=== PATIENT | female | born 1935 | race Caucasian/White ===

== ENCOUNTER 2016-05-05 05:53 | Inpatient (IN) | payer MEDICARE ==
[~2016-05-05] VITALS: Ht 165.1 cm; Wt 88.2 kg
[~2016-05-05 05:53] MED LIST: ACET500T68 PO; AMLO2.5T PO; AMLO5TAB4 PO; ASPI-482 PO; BRIM5DRO OP; CALC625T PO; DOCU-27 PO; ERGO500012 PO; FURO-68 PO; HYDR-971 PO; LOPE1TAB4 PO; LOSA50TA2 PO; MAGN2400 PO; METO25TA2 PO; NAPR500T PO; NIAC1000 PO; NITR0.4T SL; NITR50CA11 PO; OMEG10006 PO; PANT40TA3 PO; PITA2TAB2 PO; POTA10TA31 PO; POTA20TA84 PO; TAFL1DRO OP
[2016-05-05] MEDS ORDERED: ASPIRIN 325 MG TABLET ONE (06:17)
--- NOTE | 2016-05-05 06:22 | ED.ADGEN ---
Past History Past Medical History: CAD, Cancer, DVT, GERD, Hypertension, UTI Past Surgical History: Angioplasty, Appendectomy, Coronary Bypass Surgery, Hysterectomy, Pacemaker, Other Alcohol Use: Occasionally Drug Use: None Adult General HPI HPI Patient is a 81 y/o female c/o 2.5 hour h/o "sharp" chest pain that radiates to back of her arms. Denies nausea, vomiting, dyspnea, diaphoresis. States that it feels different than her GERD. Admitted and ruled out with similar symptoms in February. Unremarkable cath and echo within last year. Pacemaker placed in summer 2015. Follows with [facility]. Took ntg this morning with no effect. Took usual 81mg ASA. Rates the pain 03/20. Review of Systems Review of Systems Constitutional: Denies fever or chills [] Eyes: Denies change in visual acuity, redness, or eye pain [] HENT: Denies nasal congestion or sore throat [] Respiratory: Denies cough or shortness of breath [] Cardiovascular: No additional information not addressed in HPI [] GI: Denies abdominal pain, nausea, vomiting, bloody stools or diarrhea [] : Denies dysuria or hematuria [] Musculoskeletal: Denies back pain or joint pain [] Integument: Denies rash or skin lesions [] Neurologic: Denies headache, focal weakness or sensory changes [] Endocrine: Denies polyuria or polydipsia [] Current Medications Current Medications Current Medications Medications (Trade) Dose Ordered Sig/[facility] Start Time Stop Time Status Last Admin Dose Admin Aspirin (Beatriz Aspirin) 325 mg STK-MED ONCE 05/05/16 06:17 05/05/16 06:18 DC Aspirin (Children'S Aspirin) 324 mg 1X ONCE 05/05/16 06:30 05/05/16 06:39 DC 05/05/16 06:20 324 MG Multi-Ingredient Mouthwash/Gargle (Gi Cocktail) 20 ml 1X ONCE 05/05/16 06:30 05/05/16 06:39 DC 05/05/16 06:21 20 ML Nitroglycerin (Nitrostat) 0.4 mg PRN Q5MIN PRN 05/05/16 08:15 05/06/16 08:14 Ondansetron HCl 4 mg 4 mg PRN Q4HRS PRN 05/05/16 08:15 05/06/16 08:14 Sodium Chloride (Iv Sodium Chloride 0.9% 1,000ml) 1,000 ml @ 80 mls/hr [id number] 05/05/16 08:02 05/06/16 08:01 Allergies Allergies Allergies Coded Allergies Type Severity Reaction Last Updated Verified latex Allergy Severe Rash 02/16/16 Yes Xreihsw-Pqi-Lte Reductase Inhibitor Allergy Intermediate muscle pain 04/11/14 No adhesive Allergy Intermediate RASH 04/11/14 No bacitracin Allergy Intermediate rash 04/11/14 No ezetimibe Allergy Intermediate muscle pain 04/11/14 No neomycin Allergy Intermediate rash 04/11/14 No polymyxin B Allergy Intermediate rash 04/11/14 No propoxyphene Allergy Intermediate HALLUCINATIONS 04/11/14 No Physical Exam Physical Exam Constitutional: Well developed, well nourished, no acute distress, non-toxic appearance. [] HENT: Normocephalic, atraumatic, bilateral external ears normal, oropharynx moist, no oral exudates, nose normal. [] Eyes: PERRLA, EOMI, conjunctiva normal, no discharge. [] Neck: Normal range of motion, no tenderness, supple, no stridor. [] Cardiovascular:Heart rate regular rhythm, no murmur [] Lungs & Thorax: Bilateral breath sounds clear to auscultation [] Abdomen: Bowel sounds normal, soft, no tenderness, no masses, no pulsatile masses. [] Skin: Warm, dry, no erythema, no rash. [] Back: No tenderness, no CVA tenderness. [] Extremities: No tenderness, no cyanosis, no clubbing, ROM intact, no edema. [] Neurologic: Alert and oriented X 3, normal motor function, normal sensory function, no focal deficits noted. [] Psychologic: Affect normal, judgement normal, mood normal. [] Current Patient Data Vital Signs Vital Signs Date Time Temp Pulse Resp B/P Pulse Ox O2 Delivery O2 Flow Rate FiO2 05/05/16 08:51 70 15 146/73 96 Room Air 05/05/16 05:55 98.2 Lab Results Laboratory Tests Test 05/05/16 06:15 05/05/16 06:22 05/05/16 06:45 White Blood Count 6.8x10^3/uL (4.0-11.0) Red Blood Count 4.03x10^6/uL (3.50-5.40) Hemoglobin 13.8g/dL (12.0-15.5) Hematocrit 41.1% (36.0-47.0) Mean Corpuscular Volume 102fL (79-100) H Mean Corpuscular Hemoglobin 34pg (25-35) Mean Corpuscular Hemoglobin Concent 34g/dL (31-37) Red Cell Distribution Width 14.3% (11.5-14.5) Platelet Count 193x10^3/uL (140-400) Neutrophils (%) (Auto) 53% (31-73) Lymphocytes (%) (Auto) 20% (24-48) L Monocytes (%) (Auto) 13% (0-9) H Eosinophils (%) (Auto) 13% (0-3) H Basophils (%) (Auto) 1% (0-3) Neutrophils # (Auto) 3.6x10^3uL (1.8-7.7) Lymphocytes # (Auto) 1.4x10^3/uL (1.0-4.8) Monocytes # (Auto) 0.9x10^3/uL (0.0-1.1) Eosinophils # (Auto) 0.9x10^3/uL (0.0-0.7) H Basophils # (Auto) 0.1x10^3/uL (0.0-0.2) POC Troponin I 0.03ng/ml (<0.08) Prothrombin Time 9.9SEC (9.4-11.4) Prothrombin Time INR 1.0 (0.9-1.1) PTT 23SEC (23-33) Sodium Level 140mmol/L (136-145) Potassium Level 4.0mmol/L (3.5-5.1) Chloride Level 105mmol/L (98-107) Carbon Dioxide Level 23mmol/L (21-32) Anion Gap 12 (6-14) Blood Urea Nitrogen 40mg/dL (7-20) H Creatinine 1.3mg/dL (0.6-1.0) H Estimated GFR (Cockcroft-Gault) 39.3 Glucose Level 95mg/dL (70-99) Calcium Level 9.3mg/dL (8.5-10.1) Magnesium Level 1.9mg/dL (1.8-2.4) Aspartate Amino Transferase (AST) 32U/L (15-37) Alanine Aminotransferase (ALT) 39U/L (14-59) Alkaline Phosphatase 93U/L (46-116) Creatine Kinase 398U/L (26-192) H Creatine Kinase MB (Mass) 10.7ng/mL (0.0-3.6) H Creatine Kinase MB Relative Index 2.7% (0-4) Troponin I Quantitative < 0.017ng/mL (0-0.055) NH-Fpg-V-Type Natriuretic Peptide 483pg/mL (0-449) H Lipase 184U/L (73-393) EKG EKG EKG interpreted by me, NSR, 89 beats per minutes, RBBB, no ST elevation Radiology/Procedures Radiology/Procedures Chest x-ray interpreted by me, no acute cardiopulmonary process. [] Course & Med Decision Making Course & Med Decision Making Pertinent Labs and Imaging studies reviewed. (See chart for details) 0615 - Initial POC Chem 8 shows elevated K, suspect hemolysis so will repeat BMP and Troponin. Adding CKMB. Given 325 of ASA. GI Cocktail made no difference. Patient says pain "comes and goes" 0750 - Repeat labs are wnl. Only exception was elevated CKMB. Review of records shows that she has consistently had elevated CKMB. Spoke with patient who would prefer to stay at [facility] as long as possible. Dr. Corbett agrees. I have placed orders for repeat troponins and Cardiology consult. [] Final Impression Final Impression unstable angina CAD HTN[] Problems: Dragon Disclaimer Dragon Disclaimer This electronic medical record was generated, in whole or in part, using a voice recognition dictation system. RANDELL HAWKINS MD May 05, 2016 06:22
[2016-05-05] MEDS ORDERED: LIDO:MAALOX 1:1 20 ML SINGLE DOSE PO ONE (06:30)
[2016-05-05] MEDS ORDERED: ASPIRIN 81 MG TAB.CHEW PO ONE (06:30)
[2016-05-05 06:40] LABS: BASO # 0.1 x10^3/uL (0.0-0.2); BASO % 1 % (0-3); EOS # 0.9 x10^3/uL (0.0-0.7); EOS % 13 % (0-3); HEMATOCRIT 41.1 % (36.0-47.0); HEMOGLOBIN 13.8 g/dL (12.0-15.5); LYMPH # 1.4 x10^3/uL (1.0-4.8); LYMPH % 20 % (24-48); MEAN CORPUSCULAR HEMOGLOBIN 34 pg (25-35); MEAN CORPUSCULAR HGB CONC 34 g/dL (31-37); MEAN CORPUSCULAR VOLUME 102 fL (79-100); MONO # 0.9 x10^3/uL (0.0-1.1); MONO % 13 % (0-9); NEUT # 3.6 x10^3uL (1.8-7.7); NEUT % 53 % (31-73); PLATELET COUNT 193 x10^3/uL (140-400); RED BLOOD COUNT 4.03 x10^6/uL (3.50-5.40); RED CELL DISTRIBUTION WIDTH 14.3 % (11.5-14.5); WHITE BLOOD COUNT 6.8 x10^3/uL (4.0-11.0)
--- NOTE | 2016-05-05 06:44 | EKG ---
[address] [address] Test Date: 2016-05-05 Test Time: 06:03:30 Pat Name: TREASURE CONTI Department: Room: Gender: F Head Usher: : 1935 Requested By: RANDELL HAWKINS Order Number: [id number] Reading MD: Measurements Intervals [place] Rate: 89 P: MD: QRS: 90 QRSD: 124 T: 12 QT: 362 QTc: 441 Interpretive Statements ACCELERATED JUNCTIONAL RHYTHM RIGHT BUNDLE BRANCH BLOCK RVH WITH REPOLARIZATION ABNORMALITY QRS(T) CONTOUR ABNORMALITY CONSIDER ANTEROSEPTAL MYOCARDIAL DAMAGE ABNORMAL ECG RI6.01 Unconfirmed report No previous ECG available for comparison
--- NOTE | 2016-05-05 07:09 | RAD ---
Portable chest, 05/05/2016: History: Chest pain, shortness of breath Comparison is made to a study from 02/16/2016. There has been a previous median sternotomy. A left-sided transvenous pacemaker remains in place with 2 leads extending into the heart. The heart size and pulmonary vascularity are normal. There are granulomatous calcifications in left chest. No acute infiltrate is seen. There is no evidence of pleural fluid. IMPRESSION: No acute cardiopulmonary abnormality is detected.
[2016-05-05 07:39] LABS: MAGNESIUM 1.9 mg/dL (1.8-2.4)
[2016-05-05 07:44] LABS: CALCIUM 9.3 mg/dL (8.5-10.1); CREATININE 1.3 mg/dL (0.6-1.0); GFR 39.3
[2016-05-05] MEDS ORDERED: IV NORMAL SALINE 1,000ML 1,000 ML IV SCH (08:02)
[2016-05-05] MEDS ORDERED: NITROGLYCERIN SUBLINGUAL 0.4 MG BOTTLE OF 25. SL PRN ×2 (08:15→11:45)
[2016-05-05] MEDS ORDERED: ONDANSETRON PF 4 MG/2 ML VIAL. IV PRN (08:15)
--- NOTE | 2016-05-05 10:39 | PDOC2 ---
KURTGUMARO aErnest AQUATIC ECOLOGIST 05/05/16 1039: CONSULT Date of Admission DATE: 05/05/16 TIME: 10:38 Reason for Consult: chest pain Problem List Problems Medical Problems: (1) Unstable angina Status: Acute History of Present Illness Ms Aguero is an 81 year old female with a history of Coronary artery disease , bypass surgery, permanent pacemaker placement, hypertension and hyperlipidemia. She was seen in February with similar symptoms and mild elevation of troponin. She normally follows with [facility]. She presents with complaints of chest tightness which she woke with. She describes tightness, radiation down the back of both arms and up the back of her neck to her head. She reports the discomfort was worse with exertion. She took NTG at home without relief then took aspirin and presented for evaluation. She is currently pain free. She denies any change in her current functional capacity. She denies palpitations, lightheadedness or syncope. She reports her pacemaker was interrogated last month and "ok". Past Medical History echo 03/2016 There is borderline concentric left ventricular hypertrophy. The left ventricular systolic function is normal and the ejection fraction is within normal range. The Ejection Fraction is 55-60%. There is mild pulmonary hypertension. The PA pressure was estimated at 38 mmHg. Significant for coronary artery disease status post PTCA in 2009, coronary artery bypass graft surgery in 2016, hypertension, hyperlipidemia, congestive heart failure, osteoarthritis. Past Surgical History Significant for PTCA and stent, coronary artery bypass graft surgery, permanent pacemaker placement, right total knee arthroplasty, bilateral cataract extraction, tonsillectomy, appendectomy, total abdominal hysterectomy, bilateral salpingo-oophorectomy and back surgery. Family History Has one older brother who is alive and has coronary artery bypass graft surgery and pacemaker placement. Her father at the age of 69 because of lung cancer. The mother secondary to myocardial infarction. Social History She is and lives with her who has normal pressure hydrocephalus. She has a daughter and a son. She is an ex-smoker quit 50 years ago. She drinks alcohol occasionally. 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 Current Medications Current Medications Aspirin (Children'S Aspirin) 324 mg 1X ONCE PO Last administered on 05/05/16t 06:20; Start 05/05/16 at 06:30; Stop 05/05/16 at 06:39; Status DC Multi-Ingredient Mouthwash/Gargle (Gi Cocktail) 20 ml 1X ONCE PO Last administered on 05/05/16t 06:21; Start 05/05/16 at 06:30; Stop 05/05/16 at 06:39 ; Status DC Aspirin (Beatriz Aspirin) 325 mg STK-MED ONCE .ROUTE ; Start 05/05/16 at 06:17; Stop 05/05/16 at 06:18; Status DC Ondansetron HCl 4 mg 4 mg PRN Q4HRS PRN IV NAUSEA/VOMITING; Start 05/05/16 at 08:15; Stop 05/06/16 at 08:14 Sodium Chloride (Iv Sodium Chloride 0.9% 1,000ml) 1,000 ml @ 80 mls/hr [id number] IV ; Start 05/05/16 at 08:02; Stop 05/06/16 at 08:01 Nitroglycerin (Nitrostat) 0.4 mg PRN Q5MIN PRN SL CHEST PAIN; Start 05/05/16 at 08:15; Stop 05/06/16 at 08:14 Active Scripts Active Reported Imodium Multi-Symptom Rel Cplt (Loperamide Hcl/Simethicone) 1 Each Tablet 1 Each PO Q4HRS PRN not given this admit may resume as needed [place] 5-325 Tablet (Hydrocodone Bit/Acetaminophen) 1 Each Tablet 1 Tab PO Q4HRS PRN RESUME NEEDED Vitamin D2 (Ergocalciferol (Vitamin D2)) 50,000 Unit Capsule 1 Cap PO WEEKLY resume Wednesday Potassium Chloride 10 Meq Tab.er.prt 10 Meq PO BID last dose this morning next dose due tonight Amlodipine Besylate 2.5 Mg Tablet 2.5 Mg PO DAILY last dose this morning next dose due tomorrow morning Zioptan 0.0015% Eye Drops (Tafluprost/Pf) 1 Each Droperette 1 Each OP DAILY not given this admit may resume Protonix (Pantoprazole Sodium) 40 Mg Tablet.dr 40 Mg PO BID last dose this morning next dose due tonight Pv Fish Oil 1,000 Mg Softgel ([place]arson-3 Fatty Acids/Vitamin E) 1,000 Mg Capsule 2, 000 Mg PO DAILY last dose this morning next dose due tomorrow Nitrostat (Nitroglycerin) 0.4 Mg Tab.subl 0.4 Mg SL Q5MIN X3 DOSES PRN not given on unit may resume as needed Niaspan (Niacin) 1,000 Mg Tab.er.24h 1,000 Mg PO DAILY last dose this morning next dose due tomorrow Toprol Xl (Metoprolol Succinate) 25 Mg Tab.er.24h 25 Mg PO DAILY LAST DOSE GIVEN: DATE: TIME: AM NEXT DOSE DUE: DATE: TOMORROW TIME: AM Cozaar (Losartan Potassium) 50 Mg Tablet 50 Mg PO DAILY last dose this morning next dose due tomorrow morning Lasix (Furosemide) 40 Mg Tablet 40 Mg PO DAILY LAST DOSE GIVEN: DATE: TODAY TIME: AM NEXT DOSE DUE: DATE: TOMORROW TIME: AM Alphagan P (Brimonidine Tartrate) 5 Ml Drops 5 Ml OP DAILY RESUME WHEN YOU GET HOME Aspir 81 (Aspirin) 81 Mg Tablet.dr 81 Mg PO DAILY last dose this morning next dose due tomorrow Acetaminophen 500 Mg Tablet 500 Mg PO TID LAST DOSE GIVEN: DATE: TIME: AM NEXT DOSE DUE: DATE: TIME: AFTERNOON IF NEEDED Allergies: Coded Allergies: latex (Verified Allergy, Severe, Rash, 02/16/16) Cclljzh-Djo-Zso Reductase Inhibitor (Unverified Allergy, Intermediate, muscle pain, 04/11/14) adhesive (Unverified Allergy, Intermediate, RASH, 04/11/14) bacitracin (Unverified Allergy, Intermediate, rash, 04/11/14) ezetimibe (Unverified Allergy, Intermediate, muscle pain, 04/11/14) neomycin (Unverified Allergy, Intermediate, rash, 04/11/14) polymyxin B (Unverified Allergy, Intermediate, rash, 04/11/14) propoxyphene (Unverified Allergy, Intermediate, HALLUCINATIONS, 04/11/14) Review of System as per HPI or negative General: Alert, Oriented X3, Cooperative, No acute distress HEENT: Atraumatic, EOMI, Mucous membr. moist/pink Lungs: Clear to auscultation Heart: Regular rate, Normal S1, Normal S2 Abdomen: Normal bowel sounds, Soft, No tenderness Extremities: No cyanosis, Normal pulses Neuro: Normal speech, Strength at 5/5 X4 ext Psych/Mental Status: Mental status NL, Mood NL VITALS Vital Signs Date Time Temp Pulse Resp B/P Pulse Ox O2 Delivery O2 Flow Rate FiO2 05/05/16 08:51 70 15 146/73 96 Room Air 05/05/16 05:55 98.2 Labs Laboratory Tests Test 05/05/16 06:15 05/05/16 06:22 05/05/16 06:45 White Blood Count 6.8x10^3/uL (4.0-11.0) Red Blood Count 4.03x10^6/uL (3.50-5.40) Hemoglobin 13.8g/dL (12.0-15.5) Hematocrit 41.1% (36.0-47.0) Mean Corpuscular Volume 102fL (79-100) Mean Corpuscular Hemoglobin 34pg (25-35) Mean Corpuscular Hemoglobin Concent 34g/dL (31-37) Red Cell Distribution Width 14.3% (11.5-14.5) Platelet Count 193x10^3/uL (140-400) Neutrophils (%) (Auto) 53% (31-73) Lymphocytes (%) (Auto) 20% (24-48) Monocytes (%) (Auto) 13% (0-9) Eosinophils (%) (Auto) 13% (0-3) Basophils (%) (Auto) 1% (0-3) Neutrophils # (Auto) 3.6x10^3uL (1.8-7.7) Lymphocytes # (Auto) 1.4x10^3/uL (1.0-4.8) Monocytes # (Auto) 0.9x10^3/uL (0.0-1.1) Eosinophils # (Auto) 0.9x10^3/uL (0.0-0.7) Basophils # (Auto) 0.1x10^3/uL (0.0-0.2) Bedside Troponin I 0.03ng/ml (<0.08) Prothrombin Time 9.9SEC (9.4-11.4) Prothromb Time International Ratio 1.0 (0.9-1.1) Activated Partial Thromboplast Time 23SEC (23-33) Sodium Level 140mmol/L (136-145) Potassium Level 4.0mmol/L (3.5-5.1) Chloride Level 105mmol/L (98-107) Carbon Dioxide Level 23mmol/L (21-32) Anion Gap 12 (6-14) Blood Urea Nitrogen 40mg/dL (7-20) Creatinine 1.3mg/dL (0.6-1.0) Estimated GFR (Cockcroft-Gault) 39.3 Glucose Level 95mg/dL (70-99) Calcium Level 9.3mg/dL (8.5-10.1) Magnesium Level 1.9mg/dL (1.8-2.4) Aspartate Amino Transf (AST/SGOT) 32U/L (15-37) Alanine Aminotransferase (ALT/SGPT) 39U/L (14-59) Alkaline Phosphatase 93U/L (46-116) Creatine Kinase 398U/L (26-192) Creatine Kinase MB (Mass) 10.7ng/mL (0.0-3.6) Creatine Kinase MB Relative Index 2.7% (0-4) Troponin I Quantitative < 0.017ng/mL (0-0.055) DX-Zfx-L-Type Natriuretic Peptide 483pg/mL (0-449) Lipase 184U/L (73-393) Images EKG pending CXR - IMPRESSION: No acute cardiopulmonary abnormality is detected. Assessment/Plan 1. chest pain with history of recent NSTEMI - initial trop negative. CP free currently. 2. CAD/CABG x 2 status - last cardiac cath May 2012 revealed LM 20%, LAD 95% ISR, DI 70% ISR, LCX normal, RCA small non dominant, PERALTA-LAD 50%, radial T graft to D1 occluded. Stress test 09/24/15 revealed small, mild intensity, predominantly fixed, defect in apical inferolateral region. Fixed defect new compared to MPI in 2013. 3. history of PE/DVT 4. PPM - interrogate 5. hypertension - resume home medications 6. dyslipidemia - check lipids Check echocardiogram, resume home medications to include aspirin, beta blockers and nitrates. Consider Ranexa. Continue serial enzymes. Further plan to follow. Problems: ARIELLE HARRIS MD 05/05/16 1423: CONSULT Allergies: Coded Allergies: latex (Verified Allergy, Severe, Rash, 02/16/16) Jcgqwol-Dfq-Sma Reductase Inhibitor (Unverified Allergy, Intermediate, muscle pain, 04/11/14) adhesive (Unverified Allergy, Intermediate, RASH, 04/11/14) bacitracin (Unverified Allergy, Intermediate, rash, 04/11/14) ezetimibe (Unverified Allergy, Intermediate, muscle pain, 04/11/14) neomycin (Unverified Allergy, Intermediate, rash, 04/11/14) polymyxin B (Unverified Allergy, Intermediate, rash, 04/11/14) propoxyphene (Unverified Allergy, Intermediate, HALLUCINATIONS, 04/11/14) Assessment/Plan Pt. seen and examined. Agree with above GAUGE INSPECTOR note. 81 y.o woman with prior CABG and PCI. Presenting with features of typical and atypical chest pain. Prior admission 3 months ago with positive troponin. She has a stress test with fixed defect recently Normal cardiac exam. Trop neg, EKG unremarkable, BP controlled. On toprol, ASA, losartan and amlodipine. allergic to statins. Discussed with her about various options including, addition of imdur etc or uptitration of amlodipine given her normal EKG and negative troponins. On the other hand, she has had two admissions with CP suggestive of ischemic pain in the last 2 months. I offered her cath through here or . 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 Will plan for transfer [facility]. Thanks for consult. Problems: GUMARO HICKS APRN May 05, 2016 10:39 ARIELLE HARRIS MD May 05, 2016 14:23
[2016-05-05 10:45] VITALS: BP 156/72
[2016-05-05] MEDS ORDERED: HYDROCODONE/APAP 5/325MG TABLET. PO PRN (11:45)
[2016-05-05] MEDS ORDERED: LOPERAMIDE 2 MG CAPSULE PO PRN (13:00)
[2016-05-05] MEDS ORDERED: SIMETHICONE 80 MG TAB.CHEW PO PRN (13:00)
[2016-05-05] MEDS ORDERED: ACETAMINOPHEN 500 MG TABLET PO SCH (14:00)
[2016-05-05 14:50] VITALS: BP 148/65
--- NOTE | 2016-05-05 15:23 | CARD ---
APPROVED REPORT EXAM: Two-dimensional and M-mode echocardiogram with Doppler and color Doppler. Other Information Quality : GoodHR: 88bpm Rhythm : NSR INDICATION Hypertension/HCVD CAD Chest Pain RISK FACTORS Hypertension 2D DIMENSIONS RVDd2.3 (2.9-3.5cm)IVSd1.0 (0.7-1.1cm) Aortic Root(2D)2.8 (2.0-3.7cm)LVDd4.0 (3.9-5.9cm) PWd1.0 (0.7-1.1cm)LVDs2.7 (2.5-4.0cm) FS (%) 31.8 %SV41.7 ml LVEF(%)60.5 (>50%) Aortic Valve AoV Peak Bib.93.3cm/sAoV VTI19.9cm AO Peak GR.3.5mmHgAO Mean GR.2mmHg GILES (VTI)2.99cm2 Mitral Valve MV E Zbbgfnon38.7cm/sMV E Peak Gr.2mmHg MV DECEL [id number] A Eswfujhk51.7cm/s MV E Mean Gr.1mmHgE/A Ratio0.6 MV A [id number] Tricuspid Valve TR P. [id number]/sRAP [id number] TR Peak Gr.21mmHg LEFT VENTRICLE The left ventricle is normal size. There is normal left ventricular wall thickness. The left ventricu lar systolic function is normal. The Ejection Fraction is 60-65%. There is normal LV segmental wall m otion. Transmitral Doppler flow pattern is Grade I-abnormal relaxation pattern. RIGHT VENTRICLE The right ventricle is normal size. There is normal right ventricular wall thickness. The right ventr icular systolic function is normal. ATRIA The left atrium size is normal. The right atrium size is normal. The interatrial septum is intact wit h no evidence for an atrial septal defect or patent foramen ovale as noted on 2-D or Doppler imaging. AORTIC VALVE The aortic valve is normal in structure and function. Doppler and Color Flow revealed no significant aortic regurgitation. There is no significant aortic valvular stenosis. MITRAL VALVE There is no evidence of mitral valve prolapse. There is no mitral valve stenosis. Doppler and Color F low revealed mild mitral regurgitation. TRICUSPID VALVE Doppler and Color Flow revealed mild tricuspid regurgitation. The pulmonary artery systolic pressure is estimated at 24 mmHg. There is no pulmonary hypertension. PULMONIC VALVE Doppler and Color Flow revealed mild pulmonic valvular regurgitation. There is no pulmonic valvular s tenosis. GREAT VESSELS The aortic root is normal in size. The ascending aorta is normal in size. The pulmonary artery is nor mal. The IVC is normal in size and collapses >50% with inspiration. PERICARDIAL EFFUSION There is no evidence of significant pericardial effusion. Critical Notification Critical Value: No <Conclusion> The left ventricular systolic function is normal. The Ejection Fraction is 60-65%. There is normal LV segmental wall motion. Transmitral Doppler flow pattern is Grade I-abnormal relaxation pattern. Mild mitral regurgitation. Mild tricuspid regurgitation. The pulmonary artery systolic pressure is estimated at 24 mmHg. There is no evidence of significant pericardial effusion.
--- NOTE | 2016-05-05 17:36 | SSS ---
ADMIT DATE: 05/05/2016 HISTORY OF PRESENT ILLNESS: This is an 81-year-old female patient who came to the Emergency Room with a complaint of chest tightness which woke her up. She describes tightness radiation down to back of both arms and up to the back of her neck and to her head. She reports the discomfort was worse with exertion. She took nitroglycerin at home without relief and took aspirin, presented for evaluation. By the time she arrived to the Emergency Room, she was pain free. She denied any change in her current functional status. Denied any palpitation, dizziness, lightheadedness or syncope. Her pacemaker was interrogated last month and was okay. She was evaluated in the Emergency Room and was admitted to do 2 more sets of cardiac enzyme and to be evaluated by the Cardiology team. She has in fact 2 sets of cardiac enzymes, which showed troponin to be less than 0.017. She was seen by the Cardiology team and apparently has had an echocardiogram, which showed that her left ventricular systolic function is normal, ejection fraction is 60% to 65%. She has normal left ventricular segmental wall motion. Transmitral Doppler flow pattern has grade 1 abnormal relaxation pattern. She has mild mitral regurgitation, mild tricuspid regurgitation. The pulmonary artery systolic pressure is estimated at 24 mm. There is no evidence of significant pericardial effusion. The Cardiology team has seen the patient and basically was given multiple options including to go home with some adjustment of her medication including increasing her Imdur as well as amlodipine given that her normal EKG and negative troponin. On the other hand, she has had 2 admissions with chest pain suggestive of ischemic pain in the last [address] Bowen called her cinder snapper and she was accepted at [facility] as a transfer for further evaluation of her chest pain. PAST MEDICAL HISTORY: Significant for coronary artery disease, status post PTCA in 2010; coronary artery bypass graft surgery in 2016, hypertension, hyperlipidemia, congestive heart failure, and osteoarthritis. PAST SURGICAL HISTORY: Significant for PTCA with stent deployment, coronary artery bypass graft surgery, permanent pacemaker placement, right total knee arthroplasty, bilateral cataract extraction, tonsillectomy, appendectomy, total abdominal hysterectomy, bilateral salpingo-oophorectomy and back surgery. FAMILY HISTORY: She has 1 older brother, who is alive and has coronary artery bypass graft surgery and pacemaker placement. Her father at the age of 69 because of lung cancer. Mother secondary to myocardial infarction. SOCIAL HISTORY: She is and lives with her , who has normal pressure hydrocephalus. She has a daughter and a son. She is an ex-smoker, quit 50 years ago. She drinks alcohol occasionally. 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 ALLERGIES: She is allergic to STATIN, ADHESIVE, BACITRACIN, EZETIMIBE, LATEX, NEOMYCIN, and POLYMYXIN B. MEDICATIONS: She is currently on the following medications: She is on Tylenol 500 mg 3 times a day, amlodipine 2.5 mg once a day, aspirin 81 mg once a day, brimonidine tartrate 1 drop to both eyes at bedtime, vitamin D 50,000 international units once a week, furosemide 40 mg daily, hydrocodone/APAP 5/325 one tablet every 4 hours, loperamide/simethicone 1 tablet every 4 hours as needed for diarrhea. She is on losartan potassium 50 mg once a day, metoprolol succinate 25 mg once a day, niacin 1000 mg extended release for Niaspan once a day, nitroglycerin 0.4 mg subcutaneously every 5 minutes x 3 doses chest pain, omega-3 fatty acid 2000 mg daily, Protonix 40 mg twice a day, potassium chloride 10 mEq twice a day. She is also on Zioptan 0.0015% eye drops 1 drop to both eyes daily for glaucoma. REVIEW OF SYSTEMS: As per history of present illness. PHYSICAL EXAMINATION GENERAL: When I examined her, she was sitting on the edge of the bed comfortably, in no apparent respiratory distress, slightly pale, but no jaundice, cyanosis or thyromegaly. No jugular venous distention. No limb edema. VITAL SIGNS: Her heart rate was 75, blood pressure was 148/65, temperature was 97.8, respiratory rate 20, and oxygen saturation was 100% on room air. HEAD EYES, EAR, NOSE, AND THROAT: Showed normocephalic, atraumatic. NECK: Supple. HEART: Showed normal first and second heart sounds with no gallop, rub or murmur. CHEST: Clear to auscultation. No crepitation or rhonchi. ABDOMEN: Distended, soft, and nontender. No guarding or rigidity. No organomegaly. All hernial orifices are intact. Bowel sounds are normal. NEUROLOGIC: She was awake, alert, responding appropriately. All cranial nerves are intact. EXTREMITIES: She moves her extremities without difficulty. She ambulates without assistance or assistive devices. LABORATORY DATA: While in the Emergency Room, she had lab work done, which showed a serum sodium 140, potassium 4, chloride 105, bicarbonate 23, anion gap of 12, BUN , creatinine 1.3, estimated GFR was 39 mL per minute. Her glucose was 95, calcium was 9.3. Her magnesium was 1.9 mg/dL. AST, ALT, and alkaline phosphatase were normal. Her CK was 398. CK-MB was 10.7. The patient has 2 sets of troponins, both were less than 0.017. Her beta natriuretic peptide was 483 and her triglycerides were 130. Total cholesterol was 65, LDL cholesterol was 93, VLDL was 26, and HDL cholesterol was 46, the ratio of cholesterol to HDL cholesterol ratio was 3. Her white cell count was 6800, hemoglobin 14, hematocrit 41, MCV 102 and platelet count of 193,000. Her prothrombin time was 9.9, INR of 1, aPTT was 23. ASSESSMENT: This is an 81-year-old female patient, who was admitted twice with chest pain suggestive of ischemic pain in the last 2 months. The patient was transferred to [facility] for further ischemic workup. FINAL DISCHARGE DIAGNOSES: 1. Ischemic chest pain. 2. Known coronary artery disease. DORINDA MEJIA MD DR: SHEILA/lee JOB#: [id number] / [id number]
[2016-05-05] MEDS ORDERED: BRIMONIDINE 0.2% OPHTH SOLUTION 5ML BOTTLE. OU SCH (21:00)
[2016-05-05] MEDS ORDERED: POTASSIUM CHLORIDE 10 MEQ TABLET.ER. PO SCH (21:00)
[2016-05-05] MEDS ORDERED: PANTOPRAZOLE 40 MG TABLET. PO SCH (21:00)
[2016-05-06] MEDS ORDERED: LOSARTAN 50 MG TABLET. PO SCH (09:00)
[2016-05-06] MEDS ORDERED: NIACIN 1000 MG PO SCH (09:00)
[2016-05-06] MEDS ORDERED: ASPIRIN ENTERIC COATED 81 MG TABLET.DR. PO SCH (09:00)
[2016-05-06] MEDS ORDERED: FUROSEMIDE 40 MG TABLET PO SCH (09:00)
[2016-05-06] MEDS ORDERED: OMEGA-3 FATTY ACIDS/FISH OIL 1,000 MG CAPSULE. PO SCH (09:00)
[2016-05-06] MEDS ORDERED: AMLODIPINE BESYLATE 2.5 MG TABLET PO SCH (09:00)
[2016-05-06] MEDS ORDERED: METOPROLOL SUCC 24HR ER 25 MG TAB.ER.24H. PO SCH (09:00)
[2016-05-06] MEDS ORDERED: TAFLUPROST OP SCH (09:00)
[2016-05-12] MEDS ORDERED: ERGOCALCIFEROL (VITAMIN D2) 50,000 UNIT CAPSULE PO SCH (09:00)
== END 2016-05-05 16:39 | disposition short-term general hospital (02) | DRG 303 ==
LOC: ER 05:57 → 1 SOUTH 10:15
PROVIDERS: ADMIT Internal Medicine; ATTEND Internal Medicine
DX: I25.110 Atherosclerotic heart disease of native coronary artery with unstable angina pectoris (principal); E78.5 Hyperlipidemia, unspecified; I11.0 Hypertensive heart disease with heart failure; I27.2 Other secondary pulmonary hypertension; Z96.651 Presence of right artificial knee joint; I50.9 Heart failure, unspecified; M19.90 Unspecified osteoarthritis, unspecified site; K21.9 Gastro-esophageal reflux disease without esophagitis; Z82.49 Family history of ischemic heart disease and other diseases of the circulatory system; Z86.711 Personal history of pulmonary embolism; Z86.718 Personal history of other venous thrombosis and embolism; Z80.1 Family history of malignant neoplasm of trachea, bronchus and lung; Z90.710 Acquired absence of both cervix and uterus; Z87.891 Personal history of nicotine dependence; Z95.0 Presence of cardiac pacemaker; Z95.1 Presence of aortocoronary bypass graft; Z95.5 Presence of coronary angioplasty implant and graft; Z98.41 Cataract extraction status, right eye; Z98.42 Cataract extraction status, left eye; Z87.440 Personal history of urinary (tract) infections; Z90.49 Acquired absence of other specified parts of digestive tract; Z88.8 Allergy status to other drugs, medicaments and biological substances; Z88.1 Allergy status to other antibiotic agents; Z91.040 Latex allergy status; Z90.722 Acquired absence of ovaries, bilateral
CPT/HCPCS: 36415; 71010; 80048; 80061; 82553; 83690; 83735; 83880; 84075; 84450; 84460; 84484; 85027; 85610; 85730; 93005; 93306

== ENCOUNTER → 2016-07-14 | Outpatient (CLI) | payer MEDICARE ==
[~2016-07-14] MED LIST changes: +DOCU-109 PO; -DOCU-27 PO; -ERGO500012 PO; +ERGO500027 PO
--- NOTE | 2016-07-14 13:34 | RAD ---
DATE: 07/14/2016 EXAM: MAMMO JAYLYN SCREENING BILATERAL HISTORY: Screening COMPARISON: One year ago This study was interpreted with the benefit of Computerized Aided Detection (CAD). FINDINGS: Breast Density: SCATTERED The breast parenchyma shows scattered fibroglandular densities. Breast parenchyma level B. There has not been a significant change in the appearance of the breasts compared to the previous exam IMPRESSION: Benign finding BI-RADS CATEGORY: 2 BENIGN FINDING(S) RECOMMENDED FOLLOW-UP: 12M 12 MONTH FOLLOW-UP PQRS compliance statement: Patient information was entered into a reminder system with a target due date 07/14/2017 for the next mammogram. Mammography is a sensitive method for finding small breast cancers, but it does not detect them all and is not a substitute for careful clinical examination. A negative mammogram does not negate a clinically suspicious finding and should not result in delay in biopsying a clinically suspicious abnormality. "Our facility is accredited by the [employer] Mammography Program."
== END | disposition home or self-care (01) ==
LOC: MAMMO 12:53
PROVIDERS: ATTEND Nurse Practitioner Family
DX: Z12.31 Encounter for screening mammogram for malignant neoplasm of breast (principal); E78.2 Mixed hyperlipidemia
CPT/HCPCS: 77063; G0202; 77067

== ENCOUNTER 2016-09-15 08:10 | Inpatient (IN) | payer MEDICARE ==
[~2016-09-15] VITALS: Ht 165.1 cm; Wt 86.0 kg
--- NOTE | 2016-09-15 08:44 | PHYS DOC ---
Past History Past Medical History: CAD, Cancer, DVT, GERD, Hypertension, UTI Past Surgical History: Angioplasty, Appendectomy, Coronary Bypass Surgery, Hysterectomy, Pacemaker, Other Alcohol Use: None Drug Use: None Adult General Chief Complaint Chief Complaint: CHEST PAIN HPI HPI Is a pleasant 81-year-old female with history of hypertension, hypercholesterolemia, known coronary artery disease with coronary bypass surgery and stents who presents with chest pain that began several hours prior to arrival. With course the morning she's been up with her . He since 2 AM trying to assist him with his urinary issues. Since that time she become very frustrated very tired and developed tingling anterior chest pain across center to chest with radiation to the jaw lower teeth and back. She describes the pain as a pressure dull ache. It is not worse with position, not changed with exercise, not changed with swallowing her food. She denies any shortness of breath, nausea, vomiting or diarrhea. She had a brief episode of coughing with the symptoms just as she arrived to the emergency department but denies any cough at this time, denies any URI symptoms, denies any fevers, chills, trauma or change in her medications. Pain presently is an intermittent 1-2 out of 10. Patient admits that she used to drink alcohol quite frequently and had an alcoholic problem. She has not had a drink of alcohol since 6 months. She denies any history of pancreatitis she does have a history of reflux but does not feel like her prior reflux. Differential diagnosis for chest pain: Pericarditis, myocarditis, endocarditis, pneumothorax, pneumonia, aortic dissection, esophageal spasm, esophagitis, peptic ulcer disease, acute coronary syndrome, mediastinitis, Boerhaave syndrome , musculoskeletal chest wall pain, costochondritis, intercostal strain, rib fracture, pulmonary contusion, pneumonitis, pleural effusion, pericardial effusion, pericardial tamponode, and pleurisy. Was considered upon arrival Review of Systems Review of Systems Constitutional: Denies fever or chills [] Eyes: Denies change in visual acuity, redness, or eye pain [] HENT: Denies nasal congestion or sore throat [] Respiratory: Has a brief episode of coughing nonproductive in nature with no shortness of breath. Cardiovascular: No additional information not addressed in HPI [] GI: Denies abdominal pain, nausea, vomiting, bloody stools or diarrhea [] : Denies dysuria or hematuria [] Musculoskeletal: Denies back pain or joint pain [] Integument: Denies rash or skin lesions [] Neurologic: Denies headache, focal weakness or sensory changes [] Endocrine: Denies polyuria or polydipsia [] Allergies Allergies Allergies Coded Allergies Type Severity Reaction Last Updated Verified latex Allergy Severe Rash 02/16/16 Yes Lmqwxpp-Wql-Jih Reductase Inhibitor Allergy Intermediate muscle pain 04/11/14 No adhesive Allergy Intermediate RASH 04/11/14 No bacitracin Allergy Intermediate rash 04/11/14 No ezetimibe Allergy Intermediate muscle pain 04/11/14 No neomycin Allergy Intermediate rash 04/11/14 No polymyxin B Allergy Intermediate rash 04/11/14 No propoxyphene Allergy Intermediate HALLUCINATIONS 04/11/14 No Physical Exam Physical Exam Vital signs evaluated Constitutional: Well developed, well nourished, no acute distress, non-toxic appearance. [] HENT: Normocephalic, atraumatic, bilateral external ears normal, oropharynx moist, no oral exudates, nose normal. [] Eyes: PERRLA, EOMI, conjunctiva normal, no discharge. [] Neck: Normal range of motion, no tenderness, supple, no stridor. [] Cardiovascular: Irregular irregular rhythm with no murmurs, rubs or rubs Lungs & Thorax: Bilateral breath sounds clear to auscultation [] Abdomen: Bowel sounds normal, soft, no tenderness, no masses, no pulsatile masses. [] Skin: Warm, dry, no erythema, no rash. [] Back: No tenderness, no CVA tenderness. [] Extremities: No tenderness, no cyanosis, no clubbing, ROM intact, no edema. Patient has multiple areas of bruising in her lower legs without pain no Homans sign. [] Neurologic: Alert and oriented X 3, normal motor function, normal sensory function, no focal deficits noted. [] Psychologic: Affect normal, judgement normal, mood normal. [] Current Patient Data Lab Results Laboratory Tests Test 09/15/16 08:42 09/15/16 09:00 White Blood Count 6.1 x10^3/uL (4.0-11.0) Red Blood Count 3.75 x10^6/uL (3.50-5.40) Hemoglobin 13.0 g/dL (12.0-15.5) Hematocrit 38.3 % (36.0-47.0) Mean Corpuscular Volume 102 fL (79-100) H Mean Corpuscular Hemoglobin 35 pg (25-35) Mean Corpuscular Hemoglobin Concent 34 g/dL (31-37) Red Cell Distribution Width 12.9 % (11.5-14.5) Platelet Count 174 x10^3/uL (140-400) Neutrophils (%) (Auto) 52 % (31-73) Lymphocytes (%) (Auto) 22 % (24-48) L Monocytes (%) (Auto) 16 % (0-9) H Eosinophils (%) (Auto) 9 % (0-3) H Basophils (%) (Auto) 2 % (0-3) Neutrophils # (Auto) 3.2 x10^3uL (1.8-7.7) Lymphocytes # (Auto) 1.3 x10^3/uL (1.0-4.8) Monocytes # (Auto) 1.0 x10^3/uL (0.0-1.1) Eosinophils # (Auto) 0.5 x10^3/uL (0.0-0.7) Basophils # (Auto) 0.1 x10^3/uL (0.0-0.2) Prothrombin Time 10.2 SEC (9.4-11.4) Prothrombin Time INR 1.0 (0.9-1.1) PTT 25 SEC (23-33) D-Dimer (Kathy) 1.71 mg/L (0.00-0.50) H Sodium Level 140 mmol/L (136-145) Potassium Level 3.6 mmol/L (3.5-5.1) Chloride Level 106 mmol/L (98-107) Carbon Dioxide Level 25 mmol/L (21-32) Anion Gap 9 (6-14) Blood Urea Nitrogen 31 mg/dL (7-20) H Creatinine 1.2 mg/dL (0.6-1.0) H Estimated GFR (Cockcroft-Gault) 43.1 BUN/Creatinine Ratio 26 (6-20) H Glucose Level 109 mg/dL (70-99) H Calcium Level 9.2 mg/dL (8.5-10.1) Magnesium Level 1.9 mg/dL (1.8-2.4) Total Bilirubin 0.9 mg/dL (0.2-1.0) Aspartate Amino Transferase (AST) 43 U/L (15-37) H Alanine Aminotransferase (ALT) 50 U/L (14-59) Alkaline Phosphatase 118 U/L (46-116) H Creatine Kinase 738 U/L (26-192) H Creatine Kinase MB (Mass) 25.2 ng/mL (0.0-3.6) H Creatine Kinase MB Relative Index 3.4 % (0-4) Troponin I Quantitative < 0.017 ng/mL (0-0.055) UP-Snh-R-Type Natriuretic Peptide 697 pg/mL (0-449) H Total Protein 7.3 g/dL (6.4-8.2) Albumin 3.5 g/dL (3.4-5.0) Albumin/Globulin Ratio 0.9 (1.0-1.7) L Lipase 269 U/L (73-393) Urine Collection Type Void Urine Color Yellow Urine Clarity Clear Urine pH 7.0 Urine Specific Kelley 1.015 Urine Protein Neg (NEG-TRACE) Urine Glucose (UA) Neg mg/dL (NEG) Urine Ketones (Stick) Neg mg/dL (NEG) Urine Blood Neg (NEG) Urine Nitrite Neg (NEG) Urine Bilirubin Neg (NEG) Urine Urobilinogen Dipstick 0.2 mg/dL (0.2 mg/dL) Urine Leukocyte Esterase Trace (NEG) Urine RBC 0 /HPF (0-2) Urine WBC 0 /HPF (0-4) Urine Squamous Epithelial Cells Occ /LPF Urine Transitional Epithelial Cells Occ /LPF Urine Bacteria 0 /HPF (0-FEW) EKG EKG EKG timed 8:21 AM demonstrates a irregular irregular rhythm with no P waves are obvious. There is RR prime noted in V1 and V2 likely associated with a rapid) spot given with the QRS of 120 symptoms abnormal EKG. EKG regular by Dr. Rodriguez this is the EKG provided by EMS.[] Radiology/Procedures Radiology/Procedures [] [address] [address] IMAGING REPORT Signed PATIENT: TREASURE CONTI ACCOUNT: [id number] : 1935 LOCATION: ER AGE: 81 SEX: F EXAM STATUS: REG ER ORD. PHYSICIAN: BHAVESH RODRIGUEZ MD REASON: chest pain PROCEDURE: PORTABLE CHEST 1V AP portable chest radiograph 80 09/27/2016 Clinical History: Chest pain. An AP portable erect digital radiograph of the chest was obtained. Comparison study is dated 05/05/2016. The patient is status post median sternotomy. A pacemaker is unchanged position. The cardiac silhouette is normal in size. Atherosclerotic calcification of the thoracic aorta is seen. The thoracic aorta is mildly tortuous. Small calcified granulomas are seen involving the left lung, unchanged. No acute pulmonary infiltrate is seen. No significant pleural effusion or pneumothorax is noted. The osseous structures are unchanged. Impression: No acute abnormality is seen. DICTATED AND SIGNED BY: BRONSON ARAUJO MD DATE: 09/15/16 0903 CC: BHAVESH RODRIGUEZ MD; SHAHNAZ SALAZAR MD ~ Course & Med Decision Making Course & Med Decision Making Pertinent Labs and Imaging studies reviewed. (See chart for details) Differential diagnosis for chest pain: Pericarditis, myocarditis, endocarditis, pneumothorax, pneumonia, aortic dissection, esophageal spasm, esophagitis, peptic ulcer disease, acute coronary syndrome, mediastinitis, Boerhaave syndrome , musculoskeletal chest wall pain, costochondritis, intercostal strain, rib fracture, pulmonary contusion, pneumonitis, pleural effusion, pericardial effusion, pericardial tamponode, and pleurisy.considered upon arrival with this patient who is exerting herself and yelling a lot at her given her prior medical problems due to her cardiac function to include heart disease prior stenting prior CABG, hypertension hyperlipidemia and an abnormal EKG and elevated blood pressure by concern is initially cardiac. Patient tells me that their symptoms given during CC are improved. We reviewed labs and radiology reports with patient time is now 10 AM. Patient is resting comfortably Is now 10:40 AM patient's BUN/creatinine are elevated enough that a CT angios the chest to rule out PE cannot be completed at this time. Patient with a ventilation perfusion scan done to ensure that her chest discomfort and shortness of breath which is new and changed is not from a pulmonary embolism. She isn't risk for pulmonary embolism given her prior immobility although she has no PE risk factors other than age. She has had some lower extremity trauma and as well as past. Denies any recent surgeries is not on estrogen, denies any prior history of cancer as had no history of DVT or PE in the past. Patient denies any travel. Urinalysis given her elevated BUN/creatinine she will not feel to get IV contrast which is the definitive study of choice. Because she is at risk although she is not short of breath at this time not hypoxic and not tachypnea I will treat her dose of subcutaneous Lovenox to protect her temperature until the V/Q scan is complete. Patient also has elevated CK and MB are nonspecific but may be early indications of cardiac ischemia. At this time the patient's been admitted to internal medicine, Hay Baler note: Internal medicine Hay Baler called at of the service time called 10:41 AM Consult called back at 10:41 AM Discussed the case I presented and they agreed with admission. Time of acceptance 10:[address] JOSE SHANKS we discussed differential diagnosis and treatment plan. We also discussed involvement of cardiology at this time given her risk factors. Telemetry as inpatient. She is very anxious as been given Ativan IV but she is refused. She is also very claustrophobic she'll have difficulty getting the CAT scan completed if she does not wish to use his medications now but her anxiety. Dragon Disclaimer Dragon Disclaimer This chart was dictated in whole or in part using Voice Recognition software in a busy, high-work load, and often noisy Emergency Department environment. It may contain unintended and wholly unrecognized errors or omissions. Departure Departure: Impression: Primary Impression: ATHSCL HEART DISEASE OF [place] CORONARY ARTERY W/O ANG PCTRS Additional Impression: Chest pain Disposition: ADMITTED INPATIENT Admitting Physician: Meghna Murphy Condition: GUARDED Referrals: SHAHNAZ SALAZAR MD (PCP) Problem Qualifiers BHAVESH RODRIGUEZ MD Sep 15, 2016 08:44
[2016-09-15] MEDS ORDERED: HYDROmorphone PF 1 MG/ML DISP.SYRIN IV/SQ PRN (08:45)
[2016-09-15] MEDS ORDERED: 0.9 % SODIUM CHLORIDE 10 ML DISP.SYRIN. IV PRN (08:45)
[2016-09-15] MEDS ORDERED: ASPIRIN 81 MG TAB.CHEW PO ONE (08:45)
[2016-09-15] MEDS ORDERED: LORazepam 2 MG/ML VIAL IV ONE (08:45)
[2016-09-15] MEDS ORDERED: IV NORMAL SALINE 1,000ML 1,000 ML IV SCH (08:45)
[2016-09-15 08:56] LABS: BASO # 0.1 x10^3/uL (0.0-0.2); BASO % 2 % (0-3); EOS # 0.5 x10^3/uL (0.0-0.7); EOS % 9 % (0-3); HEMATOCRIT 38.3 % (36.0-47.0); LYMPH # 1.3 x10^3/uL (1.0-4.8); LYMPH % 22 % (24-48); MEAN CORPUSCULAR HEMOGLOBIN 35 pg (25-35); MEAN CORPUSCULAR HGB CONC 34 g/dL (31-37); MEAN CORPUSCULAR VOLUME 102 fL (79-100); MONO % 16 % (0-9); NEUT # 3.2 x10^3uL (1.8-7.7); NEUT % 52 % (31-73); PLATELET COUNT 174 x10^3/uL (140-400); RED BLOOD COUNT 3.75 x10^6/uL (3.50-5.40); RED CELL DISTRIBUTION WIDTH 12.9 % (11.5-14.5); WHITE BLOOD COUNT 6.1 x10^3/uL (4.0-11.0)
--- NOTE | 2016-09-15 09:08 | RAD ---
AP portable chest radiograph 80 09/27/2016 Clinical History: Chest pain. An AP portable erect digital radiograph of the chest was obtained. Comparison study is dated 05/05/2016. The patient is status post median sternotomy. A pacemaker is unchanged position. The cardiac silhouette is normal in size. Atherosclerotic calcification of the thoracic aorta is seen. The thoracic aorta is mildly tortuous. Small calcified granulomas are seen involving the left lung, unchanged. No acute pulmonary infiltrate is seen. No significant pleural effusion or pneumothorax is noted. The osseous structures are unchanged. Impression: No acute abnormality is seen.
[2016-09-15 09:17] LABS: ALBUMIN 3.5 g/dL (3.4-5.0); ALBUMIN/GLOBULIN RATIO 0.9 (1.0-1.7); CALCIUM 9.2 mg/dL (8.5-10.1); CREATININE 1.2 mg/dL (0.6-1.0); GFR 43.1; MAGNESIUM 1.9 mg/dL (1.8-2.4); POTASSIUM 3.6 mmol/L (3.5-5.1); TOTAL BILIRUBIN 0.9 mg/dL (0.2-1.0); TOTAL PROTEIN 7.3 g/dL (6.4-8.2)
--- NOTE | 2016-09-15 09:53 | EKG ---
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
[2016-09-15 10:21] LABS: BILIRUBIN,URINE NEG (NEG); CLARITY,URINE CLEAR; COLOR,URINE YELLOW; GLUCOSE,URINE NEG (NEG); NITRITE,URINE NEG (NEG); RBC,URINE 0 /HPF (0-2); UROBILINOGEN,URINE 0.2 mg/dL (0.2 mg/dL); WBC,URINE 0 /HPF (0-4)
[2016-09-15 10:22] LABS: BACTERIA,URINE 0 /HPF (0-FEW); SQUAMOUS EPITHELIAL CELL,UR OCC /LPF
[2016-09-15] MEDS ORDERED: fentaNYL PF 100 MCG/2 ML VIAL IV PRN (10:45)
[2016-09-15] MEDS ORDERED: NITROGLYCERIN SUBLINGUAL 0.4 MG BOTTLE OF 25. SL PRN ×2 (10:45→18:15)
[2016-09-15] MEDS ORDERED: ACETAMINOPHEN 325 MG TABLET PO PRN (10:45)
[2016-09-15] MEDS ORDERED: ONDANSETRON PF 4 MG/2 ML VIAL. IV PRN (10:45)
[2016-09-15] MEDS ORDERED: ENOXAPARIN ** NOTE DOSE ** SYRINGE SQ ONE (11:00)
[2016-09-15 11:51] VITALS: BP 181/90
[2016-09-15 12:29] VITALS: BP 181/90
--- NOTE | 2016-09-15 14:38 | RAD ---
Lung scan 09/15/2016 Clinical history: Chest pain and elevated d-dimer and shortness of breath for one day. Technique: After the administration of 24.0 mCi of Xenon-133 gas, ventilation images of both lungs were obtained using the gamma camera. After the intravenous administration of 5.5 mCi Technetium 99m MAA, perfusion images of both lungs were obtained using the gamma camera. Findings: Comparison is made to a portable chest radiograph performed earlier today. This demonstrates no acute pulmonary infiltrate. Homogeneous ventilation and perfusion to both lungs is seen. No perfusion defect is noted. These findings are consistent with a normal lung scan. Impression: Normal lung scan.
[2016-09-15] MEDS ORDERED: ISOS30TA4 PO (15:27)
[2016-09-15] MEDS ORDERED: CHOL20009 PO (15:27)
[2016-09-15] MEDS ORDERED: CELE200C PO (15:27)
[2016-09-15] MEDS ORDERED: LATA2.5D3 EACHEYE (15:27)
[2016-09-15] MEDS ORDERED: DORZ10DR OP (15:27)
[2016-09-15] MEDS ORDERED: PITA4TAB2 PO (15:27)
[2016-09-15] MEDS ORDERED: VITA40TA PO (15:27)
[2016-09-15] MEDS ORDERED: FAMO40TA4 PO (15:27)
[2016-09-15 15:32] VITALS: BP 155/71
--- NOTE | 2016-09-15 16:06 | PDOC2 ---
KURTGUMARO Earnest VENTILATION WORKER 09/15/16 1606: CONSULT Date of Admission DATE: 09/15/16 TIME: 16:04 Problem List Problems Medical Problems: (1) Chest pain Status: Acute History of Present Illness Ms Aguero is an 81 year old female with known 3v CAD, Bypass status, hypertension and hyperlipidemia. She presents with complaints of sudden onset of chest pain described as dull pressure with radiation to her back and jaw. She reports being under increased amounts of stress at the time of onset. She does have a history of several admissions for anginal symptoms over the last year and did undergo a cardiac cath in April of this year. She was noted to have progression of LAD disease but a well patent PERALTA graft and so was continued on medical therapy. She has a follow up with her supply chain associate in the next couple weeks. Past Medical History echo 03/2016 There is borderline concentric left ventricular hypertrophy. The left ventricular systolic function is normal and the ejection fraction is within normal range. The Ejection Fraction is 55-60%. There is mild pulmonary hypertension. The PA pressure was estimated at 38 mmHg. Significant for coronary artery disease status post PTCA in 2009, coronary artery bypass graft surgery in 2015, hypertension, hyperlipidemia, congestive heart failure, osteoarthritis. Past Surgical History Significant for PTCA and stent, coronary artery bypass graft surgery, permanent pacemaker placement, right total knee arthroplasty, bilateral cataract extraction, tonsillectomy, appendectomy, total abdominal hysterectomy, bilateral salpingo-oophorectomy and back surgery. Family History Has one older brother who is alive and has coronary artery bypass graft surgery and pacemaker placement. Her father at the age of 69 because of lung cancer. The mother secondary to myocardial infarction. Social History She is and lives with her who has normal pressure hydrocephalus. She has a daughter and a son. She is an ex-smoker quit 50 years ago. She drinks alcohol occasionally. 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 Current Medications Current Medications Aspirin (Children'S Aspirin) 324 mg 1X ONCE PO Last administered on 09/15/16t 08:45; Start 09/15/16 at 08:45; Stop 09/15/16 at 08:47; Status DC Lorazepam (Ativan) 1 mg 1X ONCE IV ; Start 09/15/16 at 08:45; Stop 09/15/16 at 08 :47; Status DC Hydromorphone HCl (Dilaudid) 0.5 mg PRN Q15MIN PRN IV/SQ PAIN GREATER THAN 3/10 ; Start 09/15/16 at 08:45; Stop 09/16/16 at 08:44 Sodium Chloride 1,000 ml @ 1,000 mls/hr Q1H IV Last administered on 09/15/16 08:45; Start 09/15/16 at 08:45; Stop 09/15/16 at 09:44; Status DC Sodium Chloride (Normal Saline Flush) 10 ml QSHIFT PRN IV AFTER MEDS AND BLOOD DRAWS; Start 09/15/16 at 08:45 Ondansetron HCl (Zofran) 4 mg PRN Q4HRS PRN IV NAUSEA/VOMITING; Start 09/15/16 at 10:45; Stop 09/16/16 at 10:44 Fentanyl Citrate (Fentanyl 2ml Vial) 50 mcg PRN Q1HR PRN IV PAIN; Start at 10:45; Stop 09/16/16 at 10:44 Acetaminophen (Tylenol) 650 mg PRN Q4HRS PRN PO FEVER; Start 09/15/16 at 10:45; Stop 09/16/16 at 10:44 Nitroglycerin (Nitrostat) 0.4 mg PRN Q5MIN PRN SL CHEST PAIN; Start 09/15/16 at 10:45; Stop 09/16/16 at 10:44 Enoxaparin Sodium (Lovenox 80mg Syringe) 80 mg 1X ONCE SQ Last administered on 09/15/16 13:46; Start 09/15/16 at 11:00; Stop 09/15/16 at 11:01; Status DC Active Scripts Active Reported Vitamin K2 40 Mcg Tablet 40 Mcg PO DAILY LAST DOSE GIVEN: DATE: TIME: NEXT DOSE DUE: DATE: TIME: Livalo (Pitavastatin Calcium) 4 Mg Tablet 4 Mg PO DAILY LAST DOSE GIVEN: DATE: TIME: NEXT DOSE DUE: DATE: TIME: Latanoprost 2.5 Ml Drops 1 Drop EACHEYE QHS LAST DOSE GIVEN: DATE: TIME: NEXT DOSE DUE: DATE: TIME: Isosorbide Mononitrate Er (Isosorbide Mononitrate) 30 Mg Tab.er.24h 1 Tab PO DAILY LAST DOSE GIVEN: DATE: TIME: NEXT DOSE DUE: DATE: TIME: Famotidine 40 Mg Tablet 1 Tab PO HS LAST DOSE GIVEN: DATE: TIME: NEXT DOSE DUE: DATE: TIME: Trusopt (Dorzolamide Hcl) 10 Ml Drops 1 Drop OP BID LAST DOSE GIVEN: DATE: TIME: NEXT DOSE DUE: DATE: TIME: Vitamin D3 (Cholecalciferol (Vitamin D3)) 2,000 Unit Capsule 2,000 Unit PO LAST DOSE GIVEN: DATE: TIME: NEXT DOSE DUE: DATE: TIME: Celebrex (Celecoxib) 200 Mg Capsule 1 Cap PO DAILY LAST DOSE GIVEN: DATE: TIME: NEXT DOSE DUE: DATE: TIME: Imodium Multi-Symptom Rel Cplt (Loperamide Hcl/Simethicone) 1 Each Tablet 1 Each PO Q4HRS PRN not given this admit may resume as needed Potassium Chloride 10 Meq Tab.er.prt 10 Meq PO BID last dose this morning next dose due tonight Protonix (Pantoprazole Sodium) 40 Mg Tablet.dr 40 Mg PO DAILY last dose this morning next dose due tonight Pv Fish Oil 1,000 Mg Softgel (Oaks-3 Fatty Acids/Vitamin E) 1,000 Mg Capsule 2, 000 Mg PO DAILY last dose this morning next dose due tomorrow Nitrostat (Nitroglycerin) 0.4 Mg Tab.subl 0.4 Mg SL Q5MIN X3 DOSES PRN not given on unit may resume as needed Niaspan (Niacin) 1,000 Mg Tab.er.24h 1,000 Mg PO HS last dose this morning next dose due tomorrow Toprol Xl (Metoprolol Succinate) 25 Mg Tab.er.24h 25 Mg PO HS LAST DOSE GIVEN: DATE: TODAY TIME: AM NEXT DOSE DUE: DATE: TOMORROW TIME: AM Lasix (Furosemide) 40 Mg Tablet 40 Mg PO DAILY LAST DOSE GIVEN: DATE: TODAY TIME: AM NEXT DOSE DUE: DATE: TOMORROW TIME: AM Alphagan P (Brimonidine Tartrate) 5 Ml Drops 5 Ml OP DAILY RESUME WHEN YOU GET HOME Aspir 81 (Aspirin) 81 Mg Tablet.dr 81 Mg PO DAILY last dose this morning next dose due tomorrow Acetaminophen 500 Mg Tablet 500 Mg PO BID LAST DOSE GIVEN: DATE: TIME: AM NEXT DOSE DUE: DATE: TODAY TIME: AFTERNOON IF NEEDED Allergies: Coded Allergies: latex (Verified Allergy, Severe, Rash, 02/16/16) Hcxwlgj-Vxw-Npg Reductase Inhibitor (Unverified Allergy, Intermediate, muscle pain, 04/11/14) adhesive (Unverified Allergy, Intermediate, RASH, 04/11/14) bacitracin (Unverified Allergy, Intermediate, rash, 04/11/14) ezetimibe (Unverified Allergy, Intermediate, muscle pain, 04/11/14) neomycin (Unverified Allergy, Intermediate, rash, 04/11/14) polymyxin B (Unverified Allergy, Intermediate, rash, 04/11/14) propoxyphene (Unverified Allergy, Intermediate, HALLUCINATIONS, 04/11/14) Review of System as per HPI General: Alert, Oriented X3, Cooperative, No acute distress HEENT: Atraumatic, EOMI Lungs: Clear to auscultation, Normal air movement Heart: Regular rate, Normal S1, Normal S2 Abdomen: Normal bowel sounds Extremities: No cyanosis, No edema, Normal pulses Neuro: Normal speech, Strength at 5/5 X4 ext Psych/Mental Status: Mental status NL, Mood NL VITALS Vital Signs Date Time Temp Pulse Resp B/P (MAP) Pulse Ox O2 Delivery O2 Flow Rate FiO2 09/15/16 15:32 98.1 69 18 155/71 (99) 99 Room Air Labs Laboratory Tests Test 09/15/16 08:42 09/15/16 09:00 09/15/16 15:33 White Blood Count 6.1 x10^3/uL (4.0-11.0) Red Blood Count 3.75 x10^6/uL (3.50-5.40) Hemoglobin 13.0 g/dL (12.0-15.5) Hematocrit 38.3 % (36.0-47.0) Mean Corpuscular Volume 102 fL (79-100) Mean Corpuscular Hemoglobin 35 pg (25-35) Mean Corpuscular Hemoglobin Concent 34 g/dL (31-37) Red Cell Distribution Width 12.9 % (11.5-14.5) Platelet Count 174 x10^3/uL (140-400) Neutrophils (%) (Auto) 52 % (31-73) Lymphocytes (%) (Auto) 22 % (24-48) Monocytes (%) (Auto) 16 % (0-9) Eosinophils (%) (Auto) 9 % (0-3) Basophils (%) (Auto) 2 % (0-3) Neutrophils # (Auto) 3.2 x10^3uL (1.8-7.7) Lymphocytes # (Auto) 1.3 x10^3/uL (1.0-4.8) Monocytes # (Auto) 1.0 x10^3/uL (0.0-1.1) Eosinophils # (Auto) 0.5 x10^3/uL (0.0-0.7) Basophils # (Auto) 0.1 x10^3/uL (0.0-0.2) Prothrombin Time 10.2 SEC (9.4-11.4) Prothromb Time International Ratio 1.0 (0.9-1.1) Activated Partial Thromboplast Time 25 SEC (23-33) D-Dimer (Kathy) 1.71 mg/L (0.00-0.50) Sodium Level 140 mmol/L (136-145) Potassium Level 3.6 mmol/L (3.5-5.1) Chloride Level 106 mmol/L (98-107) Carbon Dioxide Level 25 mmol/L (21-32) Anion Gap 9 (6-14) Blood Urea Nitrogen 31 mg/dL (7-20) Creatinine 1.2 mg/dL (0.6-1.0) Estimated GFR (Cockcroft-Gault) 43.1 BUN/Creatinine Ratio 26 (6-20) Glucose Level 109 mg/dL (70-99) Calcium Level 9.2 mg/dL (8.5-10.1) Magnesium Level 1.9 mg/dL (1.8-2.4) Total Bilirubin 0.9 mg/dL (0.2-1.0) Aspartate Amino Transf (AST/SGOT) 43 U/L (15-37) Alanine Aminotransferase (ALT/SGPT) 50 U/L (14-59) Alkaline Phosphatase 118 U/L (46-116) Creatine Kinase 738 U/L (26-192) Creatine Kinase MB (Mass) 25.2 ng/mL (0.0-3.6) Creatine Kinase MB Relative Index 3.4 % (0-4) Troponin I Quantitative < 0.017 ng/mL (0-0.055) < 0.017 ng/mL (0-0.055) IP-Uzs-P-Type Natriuretic Peptide 697 pg/mL (0-449) Total Protein 7.3 g/dL (6.4-8.2) Albumin 3.5 g/dL (3.4-5.0) Albumin/Globulin Ratio 0.9 (1.0-1.7) Lipase 269 U/L (73-393) Thyroid Stimulating Hormone (TSH) 4.003 uIU/mL (0.358-3.740) Urine Collection Type Void Urine Color Yellow Urine Clarity Clear Urine pH 7.0 Urine Specific [place] 1.015 Urine Protein Neg (NEG-TRACE) Urine Glucose (UA) Neg mg/dL (NEG) Urine Ketones (Stick) Neg mg/dL (NEG) Urine Blood Neg (NEG) Urine Nitrite Neg (NEG) Urine Bilirubin Neg (NEG) Urine Urobilinogen Dipstick 0.2 mg/dL (0.2 mg/dL) Urine Leukocyte Esterase Trace (NEG) Urine RBC 0 /HPF (0-2) Urine WBC 0 /HPF (0-4) Urine Squamous Epithelial Cells Occ /LPF Urine Transitional Epithelial Cells Occ /LPF Urine Bacteria 0 /HPF (0-FEW) Images EKG - RBBB no acute ischemic changes. CXR - no acute abnormality VQ - normal scan Assessment/Plan 1. chest pain with history of recent NSTEMI - initial trop negative. CP free currently. 2. CAD/CABG x 2 status - Stress test 09/24/15 revealed small, mild intensity, predominantly fixed, defect in apical inferolateral region. Fixed defect new compared to MPI in 2012. Last cardiac cath April 2016 revealed Patent PERALTA with distal 30% lesion. Proximal to mid LAD lesion 60-70% . LAD well protected by PERALTA. 3. history of PE/DVT 4. PPM with appropriate function. 5. hypertension - resume home medications 6. dyslipidemia - check lipids increase imdur, add ranexa, keep follow up with her normal supply chain associate. Problems: PABLO STEPHENS MD 09/16/16 0847: CONSULT Allergies: Coded Allergies: latex (Verified Allergy, Severe, Rash, 02/16/16) Gpwxjao-Cnl-Ppf Reductase Inhibitor (Unverified Allergy, Intermediate, muscle pain, 04/11/14) adhesive (Unverified Allergy, Intermediate, RASH, 04/11/14) bacitracin (Unverified Allergy, Intermediate, rash, 3/4/15) ezetimibe (Unverified Allergy, Intermediate, muscle pain, 04/11/14) neomycin (Unverified Allergy, Intermediate, rash, 04/11/14) polymyxin B (Unverified Allergy, Intermediate, rash, 04/11/14) propoxyphene (Unverified Allergy, Intermediate, HALLUCINATIONS, 04/11/14) Assessment/Plan Patient seen and examined 09/15/16. Agree with BRANCH ASSOCIATE TELLER's assessment and plan. Chest pain with mixed typical and atypical features. Myocardial infarction ruled out. Recent cardiac catheterization at [facility] noted above. Optimize medical management with increasing Imdur dose and adding Ranexa. Follow-up with primary supply chain associate as previous scheduled. Thank you for your consultation. Problems: GUMARO HICKS APRN Sep 15, 2016 16:06 PABLO STEPHENS MD Sep 16, 2016 08:51
[2016-09-15] MEDS ORDERED: LOPERAMIDE 2 MG CAPSULE PO PRN (18:15)
[2016-09-15] MEDS ORDERED: SIMETHICONE 80 MG TAB.CHEW PO PRN (18:15)
[2016-09-15 18:57] VITALS: BP 141/72
[2016-09-15] MEDS: ACETAMINOPHEN 500 MG TABLET PO SCH (20:29)
[2016-09-15] MEDS: DORZOLAMIDE 2% OPHTH SOLUTION 10ML BOTTLE. OU SCH (20:29)
[2016-09-15] MEDS: RANOLAZINE 500 MG TAB.ER.12H PO SCH (20:31)
[2016-09-15] MEDS: POTASSIUM CHLORIDE 10 MEQ TABLET.ER. PO SCH (20:33)
[2016-09-15] MEDS ORDERED: METOPROLOL SUCC 24HR ER 25 MG TAB.ER.24H. PO SCH (21:00)
[2016-09-15] MEDS ORDERED: NIACIN ER 500 MG TABLET.ER PO SCH (21:00)
[2016-09-15] MEDS ORDERED: FAMOTIDINE 20 MG TABLET PO SCH (21:00)
[2016-09-15] MEDS ORDERED: LATANOPROST 0.005% OPHTH SOLUTION 2.5ML BOTTLE. OU SCH (21:00)
[2016-09-15 22:52] VITALS: BP 139/73
--- NOTE | 2016-09-16 00:55 | ACF ---
Admission Criteria Forms CHEST PAIN Clinical Indications for Admission to Inpatient Care (Place 'X' for any and all applicable criteria): Admission is indicated for chest pain and ANY ONE of the following(1)(2)(3)(4)(5 ): [ ]I. Angina with acute coronary syndrome (Also use Myocardial Infarction or Angina guideline) [ ]II. Hemodynamic instability [x]III. Angina needing acute intervention as indicated by ALL of the following( 11)(12): [x]a) Unstable angina is present as indicated by angina that is ANY ONE of the following: [x]i) New onset [ ]ii) Nocturnal [ ]iii) Prolonged at rest [ ]iv) Progressive [x]b) Angina warrants acute intervention as indicated by ANY ONE of the following: [ ]i) Recurrent angina (e.g, not responding as previously to treatment) [ ]ii) Angina at rest or with low-level activities despite initial medical therapy [ ]iii) New or presumably new ST-segment depression on ECG [ ]iv) Signs or symptoms of heart failure (eg, dyspnea, pulmonary edema) [ ]v) New or worsening mitral regurgitation [ ]vi) Hemodynamic instability [ ]vii) Dangerous arrhythmia (eg, sustained ventricular tachycardia) [ ]viii) History of percutaneous coronary intervention within 6 months [x]ix) History of coronary artery bypass graft surgery [ ]x) PAOLA risk score of 2 or greater[A] [ ]xi) History of Diabetes(14) [ ]xii) High-risk cardiac ischemia findings on noninvasive testing (e.g, echocardiogram, treadmill testing, nuclear scan) [ ]xiii) Chronic renal insufficiency (ie, estimated GFR less than 60 mL/min/1.732m) [ ]xiv) Left ventricular ejection fraction less than 40% [ ]IV. Evidence of IN (eg, cardiac biomarkers positive, ST-segment elevation on ECG) also use Myocardial Infarction Criteria Form. [ ]V. Pulmonary edema [ ]. Respiratory distress [ ]VII. Chest pain indicative of serious diagnosis other than coronary artery disease (eg, aortic dissection) [ ]VIII. Contraindications and/or Inappropriate clinical situations for Observational Care in patients with Chest Pain, when ANY ONE of the following is required: [ ]a) Patient with risk factor for pulmonary embolism, acute coronary syndrome and myocardial infarction (18) [ ]b) Patient with Pulmonary embolism require an average LOS of 4.3 days, therefore emergency department observation management is inappropriate 18,23 [ ]c) Painful condition/s in the elderly, have the highest rate of recidivism after emergency department observation management (10.8%) 20,21,22 [ ]d) Elevated cardiac biomarker requires intensive and exhaustive care (19) [ ]IX. General contraindications and/or Inappropriate clinical situations for Observational Care in patients with Chest Pain, when ANY ONE of the following is required: [ ]a) Prediction of prolongation of LOS based on ANY ONE of the following may be considered as a contraindication for observational care 2, 3, 4, 5, 6, 7, 8, 9, 10, 11 [ ]i) Age > 65 yrs. [ ]ii) Patient arriving by ambulance [ ]iii) Patient with high acuity [ ]iv) Patient requiring vital sign monitoring [ ]v) Patient on IV medication [ ]b) Systolic blood pressures 180mmHg 3,12 [ ]c) Patient with altered mental status including delirium and other alteration of consciousness, (3) [ ]d) Patient whose discharge disposition will be to a correction home or rehabilitation home should not be managed in Emergency Department Observation Unit. CMS rule requires 3 days hospital stay before such placement. 3,13 [ ]e) Patient with failure to thrive due to broad array of etiologies 3,16,17 [ ]f) Inability to ambulate 3,14 Extended stay beyond goal length of stay may be needed for (1)(28): [ ]a) Specific condition diagnosed after evaluation (eg, pulmonary embolism, aortic dissection) [ ]b) Unstable angina [ ]c) Continued suspicion of acute coronary syndrome with inability to complete needed cardiac evaluation (eg, patient clinically unable to undergo stress testing) [ ]d) Myocardial infarction (Contents from ANGINA and CHEST PAIN clinical indications for admission to inpatient care have been integrated in this form) The original [employer] content created by [employer] has been revised. The portions of the content which have been revised are identified through the use of italic text or in bold, and [facility] has neither reviewed nor approved the modified material. All other unmodified content is copyright [employer]. Please see references footnoted in the original [facility] edition 2016 Admission Criteria Met?: Yes DAVID ARTEAGA Sep 16, 2016 00:55
[2016-09-16 05:19] VITALS: BP 128/74
[2016-09-16 06:29] LABS: BASO # 0.1 x10^3/uL (0.0-0.2); BASO % 1 % (0-3); EOS # 0.6 x10^3/uL (0.0-0.7); EOS % 9 % (0-3); HEMOGLOBIN 13.1 g/dL (12.0-15.5); LYMPH # 1.2 x10^3/uL (1.0-4.8); LYMPH % 20 % (24-48); MEAN CORPUSCULAR HEMOGLOBIN 35 pg (25-35); MEAN CORPUSCULAR HGB CONC 34 g/dL (31-37); MEAN CORPUSCULAR VOLUME 103 fL (79-100); MONO # 0.9 x10^3/uL (0.0-1.1); MONO % 14 % (0-9); NEUT # 3.5 x10^3uL (1.8-7.7); NEUT % 56 % (31-73); PLATELET COUNT 168 x10^3/uL (140-400); RED BLOOD COUNT 3.79 x10^6/uL (3.50-5.40); RED CELL DISTRIBUTION WIDTH 13.4 % (11.5-14.5); WHITE BLOOD COUNT 6.2 x10^3/uL (4.0-11.0)
[2016-09-16 06:45] LABS: ALBUMIN 3.3 g/dL (3.4-5.0); ALBUMIN/GLOBULIN RATIO 0.9 (1.0-1.7); CALCIUM 8.9 mg/dL (8.5-10.1); CREATININE 1.1 mg/dL (0.6-1.0); GFR 47.7; MAGNESIUM 1.8 mg/dL (1.8-2.4); TOTAL BILIRUBIN 1.1 mg/dL (0.2-1.0)
[2016-09-16] MEDS: ACETAMINOPHEN 500 MG TABLET PO SCH (08:04)
[2016-09-16] MEDS: RANOLAZINE 500 MG TAB.ER.12H PO SCH (08:05)
[2016-09-16] MEDS: POTASSIUM CHLORIDE 10 MEQ TABLET.ER. PO SCH (08:06)
[2016-09-16] MEDS: DORZOLAMIDE 2% OPHTH SOLUTION 10ML BOTTLE. OU SCH (08:08)
--- NOTE | 2016-09-16 08:55 | HP ---
ADMIT DATE: 09/15/2016 REASON FOR ADMISSION: Chest pain. Please note the patient was seen on 09/15/2016, but dictation done on 09/16/2016. HISTORY OF PRESENT ILLNESS: This is an 81-year-old female who was up all last night with her , did not get any sleep. He was diagnosed with a urinary tract infection and was going to the bathroom every 5 minutes. She became quite exhausted over the course of the night and developed some chest pain. She took 3 nitroglycerin starting at 6:10 a.m. gave her some relief, but she was still having the pain, so came to the Emergency Room. PAST MEDICAL HISTORY: Coronary artery disease status post PTCA in 2009, coronary artery bypass graft 2015, hypertension, hyperlipidemia, congestive heart failure, osteoarthritis. She underwent a left heart catheterization in 04/2016. PAST SURGICAL HISTORY: PTCA and stent deployment, coronary artery bypass, pacemaker placement, right total knee arthroplasty, bilateral cataract extraction, tonsillectomy, appendectomy, total abdominal hysterectomy and back surgery. ALLERGIES: SHE IS ALLERGIC TO ALMOST ALL STATINS AND IS ON LIVALO AND THIS CANNOT BE SUBSTITUTED. ALSO ALLERGIC TO ADHESIVE, BACITRACIN, ZETIA, LATEX, NEOMYCIN, POLYMYXIN, AND DARVON. MEDICATIONS: Discussed and are correct on the MAR. REVIEW OF SYSTEMS: As per HPI. She is complaining of fatigue after being up all night. SOCIAL HISTORY: She lives in her own home. She still drives. She is . Her lives with her in rehab. He has dementia and the son lives with them and they are making an effort to keep him in the home rather than placement. She did have a problem with alcohol, but has not had any drinks in 6 months, not currently smoking. The patient is an ex-smoker, quit 50 years ago. FAMILY HISTORY: One older brother who also had heart disease and has a pacemaker. Father at 69 of lung cancer. Mother of myocardial infarction. OBJECTIVE: VITAL SIGNS: Blood pressure 141/72, temperature 97.5, pulse 74, respirations 18, pulse ox 97% on room air. GENERAL: Color is slightly pale. HEENT: Hearing is normal. Eyes are clear. Tongue was moist. NECK: Supple. LUNGS: Clear to auscultation. CARDIOVASCULAR: Regular rhythm and rate. ABDOMEN: Soft, nontender. EXTREMITIES: Without edema. NEUROLOGIC: She is intact. LABORATORY DATA: Has a slight macrocytosis, which is not new. TSH 4.0, normal troponins so far. BUN 31, creatinine 1.2, alkaline phosphatase is 118. CK 738. BNP 697. ASSESSMENT: 1. Chest pain with extensive cardiac history. 2. Coronary artery disease, coronary artery bypass graft x 2. Per Cardiology, had a stress test in 2016 with a small fixed defect apical inferior lateral region, recent cardiac catheterization with LMA 30% lesion and proximal to mid LAD 60-70% lesion. 3. History of pulmonary embolism and deep venous thrombosis. 4. Hypertension. 5. Dyslipidemia. PLAN: Cardiology has increased Imdur and has added Ranexa and she will need to follow up with her normal silk screen repairer if everything turns out to be negative and will possibly need help in her home should she decide to keep at home. MAURICE PHILLIPS DO DR: VAN/lee JOB#: [id number] / [id number]
[2016-09-16] MEDS ORDERED: PANTOPRAZOLE 40 MG TABLET. PO SCH (09:00)
[2016-09-16] MEDS ORDERED: OMEGA-3 FATTY ACIDS/FISH OIL 1,000 MG CAPSULE. PO SCH (09:00)
[2016-09-16] MEDS ORDERED: ISOSORBIDE MONONITRATE ER 30 MG TAB.ER.24H PO SCH (09:00)
[2016-09-16] MEDS ORDERED: ASPIRIN ENTERIC COATED 81 MG TABLET.DR. PO SCH (09:00)
[2016-09-16] MEDS ORDERED: FUROSEMIDE 40 MG TABLET PO SCH (09:00)
[2016-09-16] MEDS ORDERED: VITAMIN K2 40 MCG PO SCH (09:00)
[2016-09-16] MEDS ORDERED: BRIMONIDINE TARTRATE OU SCH (09:00)
[2016-09-16] MEDS ORDERED: CELECOXIB 200 MG CAPSULE PO SCH (09:00)
[2016-09-16] MEDS ORDERED: ISOS30TA4 PO (09:56)
[2016-09-16] MEDS ORDERED: RANO500T2 PO (09:56)
[2016-09-16 10:16] VITALS: BP 98/66
--- NOTE | 2016-09-16 11:25 | PDOC3 ---
Discharge Summary Visit Information Date of Admission: Sep 15, 2016 Date of Discharge: Sep 16, 2016 Final Diagnosis Problems Medical Problems: (1) Chest pain Status: Acute 1. Chest pain with extensive cardiac history-ANGINA. 2. Coronary artery disease, coronary artery bypass graft x 2. Per Cardiology, had a stress test in 2016 with a small fixed defect apical inferior lateral region, recent cardiac catheterization with LMA 30% lesion and proximal to mid LAD 60-70% lesion. 3. History of pulmonary embolism and deep venous thrombosis. 4. Hypertension. 5. Dyslipidemia. 6. CKD STAGE 3 7.mILD RHABDOMYOLOSIS Problems: Brief Hospital Course Allergies Allergies Coded Allergies Type Severity Reaction Last Updated Verified latex Allergy Severe Rash 02/16/16 Yes Wvxjyrn-Elx-Eko Reductase Inhibitor Allergy Intermediate muscle pain 04/11/14 No adhesive Allergy Intermediate RASH 04/11/14 No bacitracin Allergy Intermediate rash 04/11/14 No ezetimibe Allergy Intermediate muscle pain 04/11/14 No neomycin Allergy Intermediate rash 04/11/14 No polymyxin B Allergy Intermediate rash 04/11/14 No propoxyphene Allergy Intermediate HALLUCINATIONS 04/11/14 No Vital Signs Vital Signs Date Time Temp Pulse Resp B/P (MAP) Pulse Ox O2 Delivery O2 Flow Rate FiO2 09/16/16 10:16 98.1 84 20 98/66 (77) 96 Room Air Lab Results Laboratory Tests Test 09/15/16 08:42 09/15/16 09:00 09/15/16 15:33 09/15/16 21:30 White Blood Count 6.1 x10^3/uL (4.0-11.0) Red Blood Count 3.75 x10^6/uL (3.50-5.40) Hemoglobin 13.0 g/dL (12.0-15.5) Hematocrit 38.3 % (36.0-47.0) Mean Corpuscular Volume 102 fL (79-100) Mean Corpuscular Hemoglobin 35 pg (25-35) Mean Corpuscular Hemoglobin Concent 34 g/dL (31-37) Red Cell Distribution Width 12.9 % (11.5-14.5) Platelet Count 174 x10^3/uL (140-400) Neutrophils (%) (Auto) 52 % (31-73) Lymphocytes (%) (Auto) 22 % (24-48) Monocytes (%) (Auto) 16 % (0-9) Eosinophils (%) (Auto) 9 % (0-3) Basophils (%) (Auto) 2 % (0-3) Neutrophils # (Auto) 3.2 x10^3uL (1.8-7.7) Lymphocytes # (Auto) 1.3 x10^3/uL (1.0-4.8) Monocytes # (Auto) 1.0 x10^3/uL (0.0-1.1) Eosinophils # (Auto) 0.5 x10^3/uL (0.0-0.7) Basophils # (Auto) 0.1 x10^3/uL (0.0-0.2) Prothrombin Time 10.2 SEC (9.4-11.4) Prothromb Time International Ratio 1.0 (0.9-1.1) Activated Partial Thromboplast Time 25 SEC (23-33) D-Dimer (Kathy) 1.71 mg/L (0.00-0.50) Sodium Level 140 mmol/L (136-145) Potassium Level 3.6 mmol/L (3.5-5.1) Chloride Level 106 mmol/L (98-107) Carbon Dioxide Level 25 mmol/L (21-32) Anion Gap 9 (6-14) Blood Urea Nitrogen 31 mg/dL (7-20) Creatinine 1.2 mg/dL (0.6-1.0) Estimated GFR (Cockcroft-Gault) 43.1 BUN/Creatinine Ratio 26 (6-20) Glucose Level 109 mg/dL (70-99) Calcium Level 9.2 mg/dL (8.5-10.1) Magnesium Level 1.9 mg/dL (1.8-2.4) Total Bilirubin 0.9 mg/dL (0.2-1.0) Aspartate Amino Transf (AST/SGOT) 43 U/L (15-37) Alanine Aminotransferase (ALT/SGPT) 50 U/L (14-59) Alkaline Phosphatase 118 U/L (46-116) Creatine Kinase 738 U/L (26-192) Creatine Kinase MB (Mass) 25.2 ng/mL (0.0-3.6) Creatine Kinase MB Relative Index 3.4 % (0-4) Troponin I Quantitative < 0.017 ng/mL (0-0.055) < 0.017 ng/mL (0-0.055) < 0.017 ng/mL (0-0.055) ZA-Fop-J-Type Natriuretic Peptide 697 pg/mL (0-449) Total Protein 7.3 g/dL (6.4-8.2) Albumin 3.5 g/dL (3.4-5.0) Albumin/Globulin Ratio 0.9 (1.0-1.7) Lipase 269 U/L (73-393) Thyroid Stimulating Hormone (TSH) 4.003 uIU/mL (0.358-3.740) Urine Collection Type Void Urine Color Yellow Urine Clarity Clear Urine pH 7.0 Urine Specific May 1.015 Urine Protein Neg (NEG-TRACE) Urine Glucose (UA) Neg mg/dL (NEG) Urine Ketones (Stick) Neg mg/dL (NEG) Urine Blood Neg (NEG) Urine Nitrite Neg (NEG) Urine Bilirubin Neg (NEG) Urine Urobilinogen Dipstick 0.2 mg/dL (0.2 mg/dL) Urine Leukocyte Esterase Trace (NEG) Urine RBC 0 /HPF (0-2) Urine WBC 0 /HPF (0-4) Urine Squamous Epithelial Cells Occ /LPF Urine Transitional Epithelial Cells Occ /LPF Urine Bacteria 0 /HPF (0-FEW) Test 09/16/16 06:16 White Blood Count 6.2 x10^3/uL (4.0-11.0) Red Blood Count 3.79 x10^6/uL (3.50-5.40) Hemoglobin 13.1 g/dL (12.0-15.5) Hematocrit 39.0 % (36.0-47.0) Mean Corpuscular Volume 103 fL (79-100) Mean Corpuscular Hemoglobin 35 pg (25-35) Mean Corpuscular Hemoglobin Concent 34 g/dL (31-37) Red Cell Distribution Width 13.4 % (11.5-14.5) Platelet Count 168 x10^3/uL (140-400) Neutrophils (%) (Auto) 56 % (31-73) Lymphocytes (%) (Auto) 20 % (24-48) Monocytes (%) (Auto) 14 % (0-9) Eosinophils (%) (Auto) 9 % (0-3) Basophils (%) (Auto) 1 % (0-3) Neutrophils # (Auto) 3.5 x10^3uL (1.8-7.7) Lymphocytes # (Auto) 1.2 x10^3/uL (1.0-4.8) Monocytes # (Auto) 0.9 x10^3/uL (0.0-1.1) Eosinophils # (Auto) 0.6 x10^3/uL (0.0-0.7) Basophils # (Auto) 0.1 x10^3/uL (0.0-0.2) Sodium Level 140 mmol/L (136-145) Potassium Level 4.0 mmol/L (3.5-5.1) Chloride Level 106 mmol/L (98-107) Carbon Dioxide Level 25 mmol/L (21-32) Anion Gap 9 (6-14) Blood Urea Nitrogen 23 mg/dL (7-20) Creatinine 1.1 mg/dL (0.6-1.0) Estimated GFR (Cockcroft-Gault) 47.7 BUN/Creatinine Ratio 21 (6-20) Glucose Level 93 mg/dL (70-99) Calcium Level 8.9 mg/dL (8.5-10.1) Magnesium Level 1.8 mg/dL (1.8-2.4) Total Bilirubin 1.1 mg/dL (0.2-1.0) Aspartate Amino Transf (AST/SGOT) 38 U/L (15-37) Alanine Aminotransferase (ALT/SGPT) 45 U/L (14-59) Alkaline Phosphatase 94 U/L (46-116) Total Protein 7.0 g/dL (6.4-8.2) Albumin 3.3 g/dL (3.4-5.0) Albumin/Globulin Ratio 0.9 (1.0-1.7) Brief Hospital Course Ms. Aguero is a 81 old FEMALE WITH KNOWN CAD WHO HAD BEEN UP ALL NIGH WITH HER WHO HAS DEMENTIA AND HAVING TO TAKE HIM TO THE BATHROOM EVERY 5 MINUTES. AFTER SEVERAL HOURS SHE DEVELOPED ANGINA. SHE TOOK 3 NTGS WITH SOME RELIEF AND THEN CAME TO THE HOSPITAL. WI RULED OUT. SHE DID NOT REDEVELP THE ANGINA WHILE SHE WAS IN THE HOSPITAL. SHE WILL BE DISCHARGED TO SEE HER RN WOUND SHE HAS AN APPOINTMENT WITHIN THE WEEK. Discharge Information Condition at Discharge: Improved Disposition/Orders: D/C to Home w/ HH Dischare Medications Current Medications Aspirin (Children'S Aspirin) 324 mg 1X ONCE PO Last administered on 09/15/16 08:45; Start 09/15/16 at 08:45; Stop 09/15/16 at 08:47; Status DC Lorazepam (Ativan) 1 mg 1X ONCE IV ; Start 09/15/16 at 08:45; Stop 09/15/16 at 08 :47; Status DC Hydromorphone HCl (Dilaudid) 0.5 mg PRN Q15MIN PRN IV/SQ PAIN GREATER THAN 3/10 ; Start 09/15/16 at 08:45; Stop 09/16/16 at 08:44; Status DC Sodium Chloride 1,000 ml @ 1,000 mls/hr Q1H IV Last administered on 09/15/16 08:45; Start 09/15/16 at 08:45; Stop 09/15/16 at 09:44; Status DC Sodium Chloride (Normal Saline Flush) 10 ml QSHIFT PRN IV AFTER MEDS AND BLOOD DRAWS; Start 09/15/16 at 08:45 Ondansetron HCl (Zofran) 4 mg PRN Q4HRS PRN IV NAUSEA/VOMITING; Start 09/15/16 at 10:45; Stop 09/16/16 at 10:44; Status DC Fentanyl Citrate (Fentanyl 2ml Vial) 50 mcg PRN Q1HR PRN IV PAIN; Start at 10:45; Stop 09/16/16 at 10:44; Status DC Acetaminophen (Tylenol) 650 mg PRN Q4HRS PRN PO FEVER; Start 09/15/16 at 10:45; Stop 09/16/16 at 10:44; Status DC Nitroglycerin (Nitrostat) 0.4 mg PRN Q5MIN PRN SL CHEST PAIN; Start 09/15/16 at 10:45; Stop 09/16/16 at 10:44; Status DC Enoxaparin Sodium (Lovenox 80mg Syringe) 80 mg 1X ONCE SQ Last administered on 09/15/16 13:46; Start 09/15/16 at 11:00; Stop 09/15/16 at 11:01; Status DC Isosorbide Mononitrate (Imdur) 60 mg DAILY PO Last administered on 09/16/16 08: 03; Start 09/16/16 at 09:00 Ranolazine (Ranexa) 500 mg BID PO Last administered on 09/16/16 08:05; Start at 21:00 Acetaminophen (Tylenol) 500 mg BID PO Last administered on 09/16/16 08:04; Start 09/15/16 at 21:00 Aspirin (Aspirin Enteric Coated) 81 mg DAILY PO Last administered on 09/16/16 08:06; Start 09/16/16 at 09:00 Celecoxib (CeleBREX) 200 mg DAILY PO Last administered on 09/16/16 08:05; Start 09/16/16 at 09:00 Dorzolamide HCl (Trusopt) 1 drop BID OU Last administered on 09/16/16 08:08; Start 09/15/16 at 21:00 Furosemide (Lasix) 40 mg DAILY PO Last administered on 09/16/16 08:06; Start at 09:00 Latanoprost (Xalatan) 1 drop QHS OU Last administered on 09/15/16 20:29; Start 09/15/16 at 21:00 Metoprolol Succinate (Toprol Xl) 25 mg HS PO Last administered on 09/15/16 20: 32; Start 09/15/16 at 21:00 Nitroglycerin (Nitrostat) 0.4 mg PRN Q5MIN PRN SL CHEST PAIN; Start 09/15/16 at 18:15 Fish Oil (Fish Oil) 2,000 mg DAILY PO Last administered on 09/16/16 08:03; Start 09/16/16 at 09:00 Pantoprazole Sodium (Protonix) 40 mg DAILY PO Last administered on 09/16/16 08: 07; Start 09/16/16 at 09:00 Potassium Chloride (Klor-Con) 10 meq BID PO Last administered on 09/16/16 08:06 ; Start 09/15/16 at 21:00 Non-Formulary Medication 1 ml DAILY OU Last administered on 09/16/16 08:07; Start 09/16/16 at 09:00 Famotidine (Pepcid) 40 mg HS PO Last administered on 09/15/16 20:30; Start 09/15 at 21:00 Loperamide HCl (Imodium) 2 mg PRN Q4HRS PRN PO DIARRHEA; Start 09/15/16 at 18:15 Niacin (Slo-Niacin) 1,000 mg QHS PO Last administered on 09/15/16 20:32; Start 09/15/16 at 21:00 Non-Formulary Medication 4 mg DAILY PO Last administered on 09/16/16 08:08; Start 09/16/16 at 09:00 Non-Formulary Medication 40 mcg DAILY PO ; Start 09/16/16 at 09:00; Status UNV Simethicone (Gas-X) 80 mg PRN Q4HRS PRN PO GAS / BLOATING; Start 09/15/16 at 18: 15 Active Scripts Active Ranexa (Ranolazine) 500 Mg Tab.er.12h 500 Mg PO BID 90 Days Isosorbide Mononitrate Er (Isosorbide Mononitrate) 30 Mg Tab.er.24h 60 Mg PO DAILY 90 Days Reported Vitamin K2 40 Mcg Tablet 40 Mcg PO DAILY LAST DOSE GIVEN: DATE: CONTINUE PRESCRIBED TIME: NEXT DOSE DUE: DATE: TIME: Livalo (Pitavastatin Calcium) 4 Mg Tablet 4 Mg PO DAILY LAST DOSE GIVEN: DATE: CONTINUE PRESCRIBED TIME: NEXT DOSE DUE: DATE: TIME: Latanoprost 2.5 Ml Drops 1 Drop EACHEYE QHS LAST DOSE GIVEN: DATE: YESTERDAY TIME: NEXT DOSE DUE: DATE: TONIGHT TIME: Famotidine 40 Mg Tablet 1 Tab PO HS LAST DOSE GIVEN: DATE: YESTERDAY TIME: NEXT DOSE DUE: DATE: TONIGHT TIME: Trusopt (Dorzolamide Hcl) 10 Ml Drops 1 Drop OP BID LAST DOSE GIVEN: DATE: THIS MORNING TIME: NEXT DOSE DUE: DATE: THIS EVENING TIME: Vitamin D3 (Cholecalciferol (Vitamin D3)) 2,000 Unit Capsule 2,000 Unit PO LAST DOSE GIVEN: DATE: CONTINUE PRESCRIBED TIME: NEXT DOSE DUE: DATE: TIME: Celebrex (Celecoxib) 200 Mg Capsule 1 Cap PO DAILY LAST DOSE GIVEN: DATE:TODAY TIME: NEXT DOSE DUE: DATE:TOMORROW TIME: Imodium Multi-Symptom Rel Cplt (Loperamide Hcl/Simethicone) 1 Each Tablet 1 Each PO Q4HRS PRN not given this admit may resume as needed Potassium Chloride 10 Meq Tab.er.prt 10 Meq PO BID last dose this morning next dose due tonight Protonix (Pantoprazole Sodium) 40 Mg Tablet.dr 40 Mg PO DAILY last dose this morning next dose due TOMORROW Pv Fish Oil 1,000 Mg Softgel (Delta-3 Fatty Acids/Vitamin E) 1,000 Mg Capsule 2, 000 Mg PO DAILY last dose this morning next dose due tomorrow Nitrostat (Nitroglycerin) 0.4 Mg Tab.subl 0.4 Mg SL Q5MIN X3 DOSES PRN not given on unit may resume as needed Niaspan (Niacin) 1,000 Mg Tab.er.24h 1,000 Mg PO HS last dose YESTERDAY PM next dose TONIGHT Toprol Xl (Metoprolol Succinate) 25 Mg Tab.er.24h 25 Mg PO HS LAST DOSE GIVEN: DATE: YESTERDAY TIME: PM NEXT DOSE DUE: DATE: TONIGHT TIME: Lasix (Furosemide) 40 Mg Tablet 40 Mg PO DAILY LAST DOSE GIVEN: DATE: TODAY TIME: AM NEXT DOSE DUE: DATE: TOMORROW TIME: AM Alphagan P (Brimonidine Tartrate) 5 Ml Drops 5 Ml OP DAILY RESUME WHEN YOU GET HOME Aspir 81 (Aspirin) 81 Mg Tablet. 81 Mg PO DAILY last dose this morning next dose due tomorrow Acetaminophen 500 Mg Tablet 500 Mg PO BID LAST DOSE GIVEN: DATE: TODAY TIME: AM NEXT DOSE DUE: DATE: TODAY TIME: AFTERNOON IF NEEDED Patient Instructions Patient Instuctions SHE WAS ENCOURAGED TO GET HOME HEALTH AND WILL BE SET UP BOTH FOR HER AND HER . SHE WAS STARTED ON RANEXA AND HER IMDUR WAS INCREASED PER CARDIOLOGY. ALL OTHER MEDS THE SAME AND TO CONTINUE. MAURICE PHILLIPS DO Sep 16, 2016 11:25
== END 2016-09-16 11:20 | disposition home or self-care (01) | DRG 313 ==
LOC: ER 08:10 → 1 SOUTH 10:43
PROVIDERS: ADMIT Family Medicine; ATTEND Family Medicine
DX: R07.89 Other chest pain (principal); I13.0 Hypertensive heart and chronic kidney disease with heart failure and stage 1 through stage 4 chronic kidney disease, or unspecified chronic kidney disease; M62.82 Rhabdomyolysis; F03.90 Unspecified dementia, unspecified severity, without behavioral disturbance, psychotic disturbance, mood disturbance, and anxiety; E78.5 Hyperlipidemia, unspecified; E78.00 Pure hypercholesterolemia, unspecified; I27.2 Other secondary pulmonary hypertension; I50.9 Heart failure, unspecified; M19.90 Unspecified osteoarthritis, unspecified site; J84.10 Pulmonary fibrosis, unspecified; I25.10 Atherosclerotic heart disease of native coronary artery without angina pectoris; K21.9 Gastro-esophageal reflux disease without esophagitis; Z96.651 Presence of right artificial knee joint; N18.3 Chronic kidney disease, stage 3 (moderate); Z87.440 Personal history of urinary (tract) infections; Z79.82 Long term (current) use of aspirin; Z80.1 Family history of malignant neoplasm of trachea, bronchus and lung; Z82.49 Family history of ischemic heart disease and other diseases of the circulatory system; Z86.718 Personal history of other venous thrombosis and embolism; Z95.1 Presence of aortocoronary bypass graft; Z95.0 Presence of cardiac pacemaker; Z86.711 Personal history of pulmonary embolism; Z87.891 Personal history of nicotine dependence; Z90.710 Acquired absence of both cervix and uterus; Z95.5 Presence of coronary angioplasty implant and graft; Z98.42 Cataract extraction status, left eye; Z98.41 Cataract extraction status, right eye; Z88.8 Allergy status to other drugs, medicaments and biological substances; Z88.1 Allergy status to other antibiotic agents; Z91.040 Latex allergy status; Z90.49 Acquired absence of other specified parts of digestive tract
CPT/HCPCS: 36415; 71010; 78582; 80053; 81001; 82553; 83690; 83735; 83880; 84443; 84484; 85027; 85379; 85610; 85730; 87086; 93005; 96360; 96361; 96374; A9540; A9558; J1650; 99285-25; J7030

== ENCOUNTER → 2017-01-05 | Outpatient (CLI) | payer MEDICARE ==
[~2017-01-05] MED LIST changes: +CELE200C PO; +CHOL20009 PO; +DORZ10DR OP; +FAMO40TA4 PO; +ISOS30TA4 PO; +LATA2.5D3 EACHEYE; +PITA4TAB2 PO; +RANO500T2 PO; +VITA40TA PO
--- NOTE | 2017-01-05 10:52 | RAD ---
Ultrasound nonvascular of the left back Indication: Left back lump painful at times. Technique: Grayscale ultrasound images of the area of concern in the left back obtained. Comparison: None Findings: No solid or cystic lesion identified in the interrogated area of concern. The skin is normal in thickness. Impression: No sonographic abnormality identified in the region of concern in the left lower back.
== END | disposition home or self-care (01) ==
LOC: US 09:54
PROVIDERS: ATTEND Specialist
DX: R22.2 Localized swelling, mass and lump, trunk (principal); Z87.891 Personal history of nicotine dependence
CPT/HCPCS: 76881

== ENCOUNTER → 2017-07-21 | Outpatient (CLI) | payer MEDICARE ==
[~2017-07-21] MED LIST changes: +NAPR-683 PO; -NAPR500T PO
--- NOTE | 2017-07-21 16:14 | RAD ---
EXAM: Dual energy x-ray absorptiometry (DEXA). HISTORY: Postmenopausal female presents for osteoporosis screening. COMPARISON: 05/08/2015 and 09/03/2009. TECHNIQUE: Dual energy x-ray absorptiometry of the lumbar spine and right hip was performed. Calculation of bone mineral density based on standard deviations above or below the expected young adult normal value (T-score) was completed. FINDINGS: The average bone mineral density in the 1st through 4th lumbar vertebrae is 1.317 g/cmxcm, corresponding with a T-score of 1.1. There has been no significant change in density of the lumbar spine compared to the prior study. The average total bone mineral density in the right hip is 0.804 g/cmxcm, corresponding with a T-score of -1.6. There has been a 1.4% decrease in density of the right hip compared to the study dated 09/03/2009. IMPRESSION: 1. Osteopenia measured at the right hip. 2. Normal bone mineral density measured at the lumbar spine. Note: Definitions established by the World Health Organization: 1. Normal: T-score is -1.0 or above. 2. Osteopenia: T-score is between -1.0 and -2.5 . 3. Osteoporosis: T-score is -2.5 or below. Electronically signed by: Yuko Gilliam MD (07/21/2017 4:10 PM) [place] [id number]
--- NOTE | 2017-07-21 16:18 | RAD ---
DATE: 07/21/2017 EXAM: DIGITAL SCREEN BILAT W/CAD HISTORY: Astigmatic screening mammogram. Left chest wall pacemaker. COMPARISON: Prior mammograms from 07/14/2016 This study was interpreted with the benefit of Computerized Aided Detection (CAD). The breast parenchyma shows scattered fibroglandular densities. Breast parenchyma level B. FINDINGS: Bilateral CC and MLO views of the breasts were performed. Right breast: There are no suspicious microcalcifications, masses or areas of architectural distortion. Left breast: There are no suspicious microcalcifications, masses or areas of architectural distortion. Findings are stable from prior mammogram. IMPRESSION: Negative bilateral mammogram. BI-RADS CATEGORY: 1 NEGATIVE RECOMMENDED FOLLOW-UP: 12M 12 MONTH FOLLOW-UP PQRS compliance statement: Patient information was entered into a reminder system with a target due date 07/21/2018 for the next mammogram. Mammography is a sensitive method for finding small breast cancers, but it does not detect them all and is not a substitute for careful clinical examination. A negative mammogram does not negate a clinically suspicious finding and should not result in delay in biopsying a clinically suspicious abnormality. "Our facility is accredited by the [employer] Mammography Program."
== END | disposition home or self-care (01) ==
LOC: DXRAD 14:06
PROVIDERS: ATTEND Specialist
DX: Z12.31 Encounter for screening mammogram for malignant neoplasm of breast (principal); Z13.820 Encounter for screening for osteoporosis; M85.88 Other specified disorders of bone density and structure, other site
CPT/HCPCS: 77067; 77080

== ENCOUNTER 2017-08-22 07:11 | Emergency (ER) | payer MEDICARE ==
[~2017-08-22] VITALS: Ht 165.1 cm; Wt 85.3 kg
[2017-08-22] MEDS ORDERED: ASPIRIN 81 MG TAB.CHEW PO ONE (07:30)
[2017-08-22] MEDS ORDERED: NITROGLYCERIN SUBLINGUAL 0.4 MG BOTTLE OF 25. SL PRN (07:30)
--- NOTE | 2017-08-22 07:31 | EKG ---
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
[2017-08-22 07:45] LABS: BASO # 0.1 x10^3/uL (0.0-0.2); BASO % 1 % (0-3); EOS # 0.5 x10^3/uL (0.0-0.7); EOS % 7 % (0-3); HEMATOCRIT 37.9 % (36.0-47.0); HEMOGLOBIN 12.8 g/dL (12.0-15.5); LYMPH # 1.3 x10^3/uL (1.0-4.8); LYMPH % 20 % (24-48); MEAN CORPUSCULAR HEMOGLOBIN 35 pg (25-35); MEAN CORPUSCULAR HGB CONC 34 g/dL (31-37); MEAN CORPUSCULAR VOLUME 102 fL (79-100); MONO # 0.9 x10^3/uL (0.0-1.1); MONO % 14 % (0-9); NEUT # 3.8 x10^3uL (1.8-7.7); NEUT % 58 % (31-73); PLATELET COUNT 199 x10^3/uL (140-400); RED BLOOD COUNT 3.71 x10^6/uL (3.50-5.40); RED CELL DISTRIBUTION WIDTH 13.9 % (11.5-14.5); WHITE BLOOD COUNT 6.6 x10^3/uL (4.0-11.0)
--- NOTE | 2017-08-22 07:51 | PHYS DOC ---
Past History Past Medical History: CAD, Cancer, DVT, GERD, Glaucoma, High Cholesterol, Hypertension, Renal Disease, UTI Past Surgical History: Angioplasty, Appendectomy, Coronary Bypass Surgery, Hysterectomy, Pacemaker, Other Smoking: Non-smoker Alcohol Use: None Drug Use: None Adult General Chief Complaint Chief Complaint: CHEST PAIN [facility] 82-year-old female patient complaining of nonexertional substernal chest pain that started at 0545 as a sharp pain with radiation to her back and rated her pain 9/10. Patient denies shortness of breath, nausea and vomiting, palpitation and dizziness but complaining of numbness of her face. The pain getting worse with supine position and movement. Patient states she took nitroglycerin 3 without change of her pain and rated her pain 6/10 at arrival to ER. She has history of hypertension, dyslipidemia, coronary artery disease with CABG in 2010 and pacemaker placement 2 years ago and denies history of chest pain for several years. Patient states she had a stressful condition for the last couple days and lost her cat and one of her muslim friend and was not able to sleep well last night. Review of Systems Review of Systems Constitutional: Denies fever or chills [] Eyes: Denies change in visual acuity, redness, or eye pain [] HENT: Denies nasal congestion or sore throat [] Respiratory: Denies cough or shortness of breath [] Cardiovascular: No additional information not addressed in HPI [] GI: Denies abdominal pain, nausea, vomiting, bloody stools or diarrhea [] : Denies dysuria or hematuria [] Musculoskeletal: Denies back pain or joint pain [] Integument: Denies rash or skin lesions [] Neurologic: Denies headache, focal weakness or sensory changes [] Endocrine: Denies polyuria or polydipsia [] All other systems were reviewed and found to be within normal limits, except as documented in this note. Current Medications Current Medications Current Medications Medications (Trade) Dose Ordered Sig/Keyla Start Time Stop Time Status Last Admin Dose Admin Aspirin (Children'S Aspirin) 324 mg 1X ONCE 08/22/17 07:30 08/22/17 07:31 DC 08/22/17 07:40 324 MG Nitroglycerin (Nitrostat) 0.4 mg PRN Q5MIN PRN 08/22/17 07:30 08/23/17 07:29 08/22/17 07:40 0.4 MG Allergies Allergies Allergies Coded Allergies Type Severity Reaction Last Updated Verified latex Allergy Severe Rash 02/16/16 Yes Zxiuews-Mst-Lsl Reductase Inhibitor Allergy Intermediate muscle pain 04/11/14 No adhesive Allergy Intermediate RASH 04/11/14 No bacitracin Allergy Intermediate rash 04/11/14 No ezetimibe Allergy Intermediate muscle pain 04/11/14 No neomycin Allergy Intermediate rash 04/11/14 No polymyxin B Allergy Intermediate rash 04/11/14 No propoxyphene Allergy Intermediate HALLUCINATIONS 04/11/14 No Physical Exam Physical Exam Constitutional: Well developed, well nourished, mild distress, non-toxic appearance. [] HENT: Normocephalic, atraumatic, bilateral external ears normal, oropharynx moist, no oral exudates, nose normal. [] Eyes: PERRLA, EOMI, conjunctiva normal, no discharge. [] Neck: Normal range of motion, no tenderness, supple, no stridor. [] Cardiovascular:Heart rate regular rhythm, no murmur [] Lungs & Thorax: Bilateral breath sounds clear to auscultation [] Abdomen: Bowel sounds normal, soft, no tenderness, no masses, no pulsatile masses. [] Skin: Warm, dry, no erythema, no rash. [] Back: No tenderness, no CVA tenderness. [] Extremities: No tenderness, no cyanosis, no clubbing, ROM intact, no edema. [] Neurologic: Alert and oriented X 3, normal motor function, normal sensory function, no focal deficits noted. [] Psychologic: Affect normal, judgement normal, mood normal. [] Current Patient Data Vital Signs Vital Signs Date Time Temp Pulse Resp B/P (MAP) Pulse Ox O2 Delivery O2 Flow Rate FiO2 08/22/17 07:40 77 165/78 Lab Results Laboratory Tests Test 08/22/17 07:30 White Blood Count 6.6 x10^3/uL (4.0-11.0) Red Blood Count 3.71 x10^6/uL (3.50-5.40) Hemoglobin 12.8 g/dL (12.0-15.5) Hematocrit 37.9 % (36.0-47.0) Mean Corpuscular Volume 102 fL (79-100) H Mean Corpuscular Hemoglobin 35 pg (25-35) Mean Corpuscular Hemoglobin Concent 34 g/dL (31-37) Red Cell Distribution Width 13.9 % (11.5-14.5) Platelet Count 199 x10^3/uL (140-400) Neutrophils (%) (Auto) 58 % (31-73) Lymphocytes (%) (Auto) 20 % (24-48) L Monocytes (%) (Auto) 14 % (0-9) H Eosinophils (%) (Auto) 7 % (0-3) H Basophils (%) (Auto) 1 % (0-3) Neutrophils # (Auto) 3.8 x10^3uL (1.8-7.7) Lymphocytes # (Auto) 1.3 x10^3/uL (1.0-4.8) Monocytes # (Auto) 0.9 x10^3/uL (0.0-1.1) Eosinophils # (Auto) 0.5 x10^3/uL (0.0-0.7) Basophils # (Auto) 0.1 x10^3/uL (0.0-0.2) EKG EKG EKG interpreted by me. EKG at 0725 showed normal sinus rhythm at rate of 71, nonspecific intraventricular block, ST depression in inferior leads that was new from EKG dated 09/15/2016[] Radiology/Procedures Radiology/Procedures [][place] [address] IMAGING REPORT Signed PATIENT: TREASURE CONTI ACCOUNT: [id number] : 1935 LOCATION: ER AGE: 82 SEX: F EXAM STATUS: REG ER ORD. PHYSICIAN: SILVANO CIFUENTES MD REASON: Chest pain PROCEDURE: PORTABLE CHEST 1V Portable chest, 08/22/2017: History: Chest pain Comparison is made to a study from 09/15/2016. There has been a previous median sternotomy. A left-sided transvenous pacemaker remains in place with 2 leads extending into the right heart. The heart size and pulmonary vascularity are normal. There is calcific plaquing of the aorta. Calcified granulomata are present in the left lung. No acute infiltrate is seen. There is no evidence of pleural fluid. IMPRESSION: No acute cardiopulmonary abnormality is detected. DICTATED AND SIGNED BY: JOHN FERRARI MD DATE: 08/22/17 0753 CC: SILVANO CIFUENTES MD; SHAHNAZ SALAZAR MD ~ Course & Med Decision Making Course & Med Decision Making Pertinent Labs and Imaging studies reviewed. (See chart for details) Evaluation of patient in ER showed 82-year-old female patient with complaining of chest pain since this morning. Patient had nitroglycerin at home with partial improvement of the pain but in ER she states her pain did not change with nitroglycerin. Morphine was given and patient states the pain did not change with morphine. EKG showed new ST depression inferiorly. On-call family and marriage counsellor Dr. Guaman was informed at 0838 and recommended to transfer patient to [facility]. Patient wanted to go to [facility] because her family and marriage counsellor Dr. Gastelum is practicing at [facility]. Dr. Maria accepted transfer to [facility] at 0855 and recommended to start nitro drip and heparin drip. [] Dragon Disclaimer Dragon Disclaimer This electronic medical record was generated, in whole or in part, using a voice recognition dictation system. Departure Departure: Impression: Primary Impression: Acute chest pain Additional Impressions: Inferior ST segment depression Abnormal cardiac enzyme level Renal insufficiency Disposition: XFER SHT-TRM HOSP (to [facility] at 0857) Condition: GUARDED Referrals: SHAHNAZ SALAZAR MD (PCP) Critical Care Time Critical care time was [70] minutes exclusive of procedures. Problem Qualifiers SILVANO CIFUENTES MD Aug 22, 2017 07:51
--- NOTE | 2017-08-22 07:55 | RAD ---
Portable chest, 08/22/2017: History: Chest pain Comparison is made to a study from 09/15/2016. There has been a previous median sternotomy. A left-sided transvenous pacemaker remains in place with 2 leads extending into the right heart. The heart size and pulmonary vascularity are normal. There is calcific plaquing of the aorta. Calcified granulomata are present in the left lung. No acute infiltrate is seen. There is no evidence of pleural fluid. IMPRESSION: No acute cardiopulmonary abnormality is detected.
[2017-08-22 08:10] LABS: ALBUMIN 3.6 g/dL (3.4-5.0); CALCIUM 8.8 mg/dL (8.5-10.1); CREATININE 1.3 mg/dL (0.6-1.0); GFR 39.2; MAGNESIUM 2.4 mg/dL (1.8-2.4); POTASSIUM 4.1 mmol/L (3.5-5.1); TOTAL BILIRUBIN 0.6 mg/dL (0.2-1.0); TOTAL PROTEIN 7.3 g/dL (6.4-8.2)
[2017-08-22] MEDS ORDERED: MORPHINE SULFATE 4 MG/ML DISP.SYRIN. IV ONE (08:15)
[2017-08-22] MEDS ORDERED: ONDANSETRON PF 4 MG/2 ML VIAL. IV ONE (08:15)
[2017-08-22] MEDS ORDERED: NITROGLYCERIN PREMIX 250 ML IV ONE (09:00)
[2017-08-22] MEDS ORDERED: PANTOPRAZOLE IV 40 MG VIAL. IVP ONE (09:00)
[2017-08-22] MEDS ORDERED: HEPARIN 25,000UTS/500ML PREMIX 500 ML IV PRN ×2 (09:00→09:30)
[2017-08-22 09:30] VITALS: BP 150/72
== END 2017-08-22 09:36 | disposition short-term general hospital (02) ==
LOC: ER 07:11
DX: R07.2 Precordial pain (principal); R94.31 Abnormal electrocardiogram [ECG] [EKG]; R74.8 Abnormal levels of other serum enzymes; I12.9 Hypertensive chronic kidney disease with stage 1 through stage 4 chronic kidney disease, or unspecified chronic kidney disease; N18.9 Chronic kidney disease, unspecified; K21.9 Gastro-esophageal reflux disease without esophagitis; E78.00 Pure hypercholesterolemia, unspecified; Z87.440 Personal history of urinary (tract) infections; Z86.718 Personal history of other venous thrombosis and embolism; I25.810 Atherosclerosis of coronary artery bypass graft(s) without angina pectoris; Z98.61 Coronary angioplasty status; Z95.0 Presence of cardiac pacemaker; Z91.040 Latex allergy status; Z88.8 Allergy status to other drugs, medicaments and biological substances; Z88.1 Allergy status to other antibiotic agents
CPT/HCPCS: 36415; 71045; 80053; 82553; 83690; 83735; 83880; 84484; 85025; 85610; 93005; 96374; 96375; 99291; C9113; J2270; J2405; J3490

== ENCOUNTER 2018-03-20 06:12 | Inpatient (IN) | payer MEDICARE ==
[~2018-03-20] VITALS: Ht 165.1 cm; Wt 88.1 kg
[~2018-03-20 06:12] MED LIST changes: -AMLO2.5T PO; +AMLO2.5T5 PO; +HYDR-3165 PO; -HYDR-971 PO; -LOSA50TA2 PO; +LOSA50TA86 PO
[2018-03-20 06:45] LABS: BASO # 0.1 x10^3/uL (0.0-0.2); BASO % 1 % (0-3); EOS # 0.6 x10^3/uL (0.0-0.7); EOS % 9 % (0-3); HEMATOCRIT 38.3 % (36.0-47.0); HEMOGLOBIN 12.8 g/dL (12.0-15.5); LYMPH # 1.6 x10^3/uL (1.0-4.8); LYMPH % 24 % (24-48); MEAN CORPUSCULAR HEMOGLOBIN 34 pg (25-35); MEAN CORPUSCULAR HGB CONC 33 g/dL (31-37); MEAN CORPUSCULAR VOLUME 102 fL (79-100); MONO # 0.8 x10^3/uL (0.0-1.1); MONO % 12 % (0-9); NEUT # 3.6 x10^3uL (1.8-7.7); NEUT % 55 % (31-73); PLATELET COUNT 171 x10^3/uL (140-400); RED BLOOD COUNT 3.76 x10^6/uL (3.50-5.40); RED CELL DISTRIBUTION WIDTH 13.6 % (11.5-14.5); WHITE BLOOD COUNT 6.6 x10^3/uL (4.0-11.0)
[2018-03-20] MEDS ORDERED: ASPIRIN 81 MG TAB.CHEW PO ONE (06:45)
[2018-03-20 07:14] LABS: ALBUMIN 3.4 g/dL (3.4-5.0); ALBUMIN/GLOBULIN RATIO 0.9 (1.0-1.7); CALCIUM 8.8 mg/dL (8.5-10.1); CREATININE 1.2 mg/dL (0.6-1.0); GFR 42.9; MAGNESIUM 2.1 mg/dL (1.8-2.4); TOTAL BILIRUBIN 0.7 mg/dL (0.2-1.0); TOTAL PROTEIN 7.3 g/dL (6.4-8.2)
--- NOTE | 2018-03-20 07:22 | EKG ---
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
[2018-03-20] MEDS ORDERED: NITROGLYCERIN SUBLINGUAL 0.4 MG BOTTLE OF 25. SL ONE (07:30)
--- NOTE | 2018-03-20 07:52 | PHYS DOC ---
Past History Past Medical History: Anxiety, Arthritis, CAD, Cancer, DVT, GERD, Glaucoma, High Cholesterol, Hypertension, Renal Disease, UTI Past Surgical History: Angioplasty, Appendectomy, Coronary Bypass Surgery, Hysterectomy, Pacemaker, Other Smoking: Non-smoker Alcohol Use: None Drug Use: None Adult General Chief Complaint Chief Complaint: CHEST PAIN HPI HPI Patient is a 83 year old female who presents with complaining of chest pain. Patient state she had gradual onset of left upper chest pain since 4:30 this morning as a constant and aching pain with radiation to left side of neck and face and numbness of face and left arm. Patient rated her pain 8/10 and complaining of marked shortness of breath. Nausea, palpitation, dizziness, cough and congestion, fever and chills. Patient states she felt pain in the area of her pacemaker without recent injury. She states her pain resolved at arrival to emergency room. Patient has history of hypertension and dyslipidemia and coronary artery disease with CABG and family history of carotid artery disease. Review of Systems Review of Systems Constitutional: Denies fever or chills [] Eyes: Denies change in visual acuity, redness, or eye pain [] HENT: Denies nasal congestion or sore throat [] Respiratory: Denies cough, reports shortness of breath [] Cardiovascular: No additional information not addressed in HPI [] GI: Denies abdominal pain, nausea, vomiting, bloody stools or diarrhea [] : Denies dysuria or hematuria [] Musculoskeletal: Denies back pain or joint pain [] Integument: Denies rash or skin lesions [] Neurologic: Denies headache, focal weakness or sensory changes [] Endocrine: Denies polyuria or polydipsia [] All other systems were reviewed and found to be within normal limits, except as documented in this note. Current Medications Current Medications Current Medications Medications (Trade) Dose Ordered Sig/Keyla Start Time Stop Time Status Last Admin Dose Admin Aspirin (Children'S Aspirin) 324 mg 1X ONCE 03/20/18 06:45 03/20/18 06:46 DC Nitroglycerin (Nitrostat) 0.4 mg 1X ONCE 03/20/18 07:30 03/20/18 07:31 Allergies Allergies Allergies Coded Allergies Type Severity Reaction Last Updated Verified latex Allergy Severe Rash 03/20/18 Yes Rlediny-Qjr-Qof Reductase Inhibitor Allergy Intermediate muscle pain 03/20/18 No adhesive Allergy Intermediate RASH 03/20/18 No bacitracin Allergy Intermediate rash 03/20/18 No ezetimibe Allergy Intermediate muscle pain 03/20/18 No neomycin Allergy Intermediate rash 03/20/18 No polymyxin B Allergy Intermediate rash 03/20/18 No propoxyphene Allergy Intermediate HALLUCINATIONS 03/20/18 No Physical Exam Physical Exam Constitutional: Well developed, well nourished, no acute distress, non-toxic appearance. [] HENT: Normocephalic, atraumatic, oropharynx moist, no oral exudates, nose normal. [] Eyes: PERRLA, EOMI, conjunctiva normal, no discharge. [] Neck: Normal range of motion, no tenderness, supple, no stridor. [] Cardiovascular:Heart rate regular rhythm, no murmur [] Lungs & Thorax: Bilateral breath sounds clear to auscultation [] Abdomen: Bowel sounds normal, soft, no tenderness, no masses, no pulsatile masses. [] Skin: Warm, dry, no erythema, no rash. [] Back: No tenderness, no CVA tenderness. [] Extremities: No tenderness, no cyanosis, no clubbing, ROM intact, no edema. [] Neurologic: Alert and oriented X 3, normal motor function, normal sensory function, no focal deficits noted. [] Psychologic: Affect normal, judgement normal, mood normal. [] Current Patient Data Vital Signs Vital Signs Date Time Temp Pulse Resp B/P (MAP) Pulse Ox O2 Delivery O2 Flow Rate FiO2 03/20/18 06:15 98.3 82 20 97 Room Air Lab Results Laboratory Tests Test 03/20/18 06:35 White Blood Count 6.6 x10^3/uL (4.0-11.0) Red Blood Count 3.76 x10^6/uL (3.50-5.40) Hemoglobin 12.8 g/dL (12.0-15.5) Hematocrit 38.3 % (36.0-47.0) Mean Corpuscular Volume 102 fL (79-100) H Mean Corpuscular Hemoglobin 34 pg (25-35) Mean Corpuscular Hemoglobin Concent 33 g/dL (31-37) Red Cell Distribution Width 13.6 % (11.5-14.5) Platelet Count 171 x10^3/uL (140-400) Neutrophils (%) (Auto) 55 % (31-73) Lymphocytes (%) (Auto) 24 % (24-48) Monocytes (%) (Auto) 12 % (0-9) H Eosinophils (%) (Auto) 9 % (0-3) H Basophils (%) (Auto) 1 % (0-3) Neutrophils # (Auto) 3.6 x10^3uL (1.8-7.7) Lymphocytes # (Auto) 1.6 x10^3/uL (1.0-4.8) Monocytes # (Auto) 0.8 x10^3/uL (0.0-1.1) Eosinophils # (Auto) 0.6 x10^3/uL (0.0-0.7) Basophils # (Auto) 0.1 x10^3/uL (0.0-0.2) Sodium Level 140 mmol/L (136-145) Potassium Level 4.0 mmol/L (3.5-5.1) Chloride Level 106 mmol/L (98-107) Carbon Dioxide Level 25 mmol/L (21-32) Anion Gap 9 (6-14) Blood Urea Nitrogen 32 mg/dL (7-20) H Creatinine 1.2 mg/dL (0.6-1.0) H Estimated GFR (Cockcroft-Gault) 42.9 BUN/Creatinine Ratio 27 (6-20) H Glucose Level 106 mg/dL (70-99) H Calcium Level 8.8 mg/dL (8.5-10.1) Magnesium Level 2.1 mg/dL (1.8-2.4) Total Bilirubin 0.7 mg/dL (0.2-1.0) Aspartate Amino Transferase (AST) 34 U/L (15-37) Alanine Aminotransferase (ALT) 37 U/L (14-59) Alkaline Phosphatase 117 U/L (46-116) H Creatine Kinase 461 U/L (26-192) H Troponin I Quantitative 0.017 ng/mL (0-0.055) XD-Fhv-D-Type Natriuretic Peptide 1246 pg/mL (0-449) H Total Protein 7.3 g/dL (6.4-8.2) Albumin 3.4 g/dL (3.4-5.0) Albumin/Globulin Ratio 0.9 (1.0-1.7) L Lipase 202 U/L (73-393) EKG EKG KG interpreted by me. EKG at 0 621 showed normal sinus rhythm at rate of 91, right fourth axis, nonspecific intraventricular block,, Q wave in anteroseptal leads, no acute ST and T-wave abnormalities. Radiology/Procedures Radiology/Procedures [address] [address] IMAGING REPORT Signed PATIENT: TREASURE CONTI ACCOUNT: [id number] : 1935 LOCATION: ER AGE: 83 SEX: F EXAM STATUS: REG ER ORD. PHYSICIAN: SILVANO CIFUENTES MD REASON: chest pain PROCEDURE: CHEST PA & LATERAL CHEST PA LATERAL CLINICAL INDICATION: Chest pain COMPARISON: 08/22/2017 FINDINGS: Heart is normal in size. CABG changes noted. Stable position of dual-lead cardiac pacer with its leads projecting over the heart. Bilateral nodular radiopacity most likely calcified adenomas. Lungs are hyperinflated. No pneumothorax or pleural effusion. Visualized bony thorax is within normal limits. IMPRESSION: Findings of COPD. Superimposed mild atypical/viral infection not ruled out. Electronically signed by: Sidney Olivera DO (03/20/2018 8:21 AM) [facility] DICTATED AND SIGNED BY: SIDNEY OLIVERA DO DATE: 03/20/18819 CC: SILVANO CIFUENTES MD; SHAHNAZ SALAZAR MD ~ Course & Med Decision Making Course & Med Decision Making Pertinent Labs and Imaging studies reviewed. (See chart for details) Evaluation of patient in ER showed 83-year-old male patient with multiple cardiac risk factor presented for chest pain since 4:30 this morning that resolved at arrival to ER. Patient had unremarkable troponin with mild elevation of CPK and BNP. Patient complaining of intermittent episodes of chest pain while she was in ER and treated with nitroglycerin. Because of several cardiac risk factor plan to admit patient for more evaluation of chest pain. Dragon Disclaimer Dragon Disclaimer This electronic medical record was generated, in whole or in part, using a voice recognition dictation system. Departure Departure: Impression: Primary Impression: Acute chest pain Additional Impressions: Renal insufficiency CHF (congestive heart failure) CAD (coronary artery disease) of artery bypass graft Disposition: 09 ADMITTED INPATIENT (at 0730) Admitting Physician: Sb Escamilla (accepted admission at 0805) Condition: IMPROVED Referrals: SHAHNAZ SALAZAR MD (PCP) Problem Qualifiers SILVANO CIFUENTES MD Mar 20, 2018 07:52
--- NOTE | 2018-03-20 08:26 | RAD ---
CHEST PA LATERAL CLINICAL INDICATION: Chest pain COMPARISON: 08/22/2017 FINDINGS: Heart is normal in size. CABG changes noted. Stable position of dual-lead cardiac pacer with its leads projecting over the heart. Bilateral nodular radiopacity most likely calcified adenomas. Lungs are hyperinflated. No pneumothorax or pleural effusion. Visualized bony thorax is within normal limits. IMPRESSION: Findings of COPD. Superimposed mild atypical/viral infection not ruled out. Electronically signed by: Sidney Olivera DO (03/20/2018 8:21 AM) [facility]
[2018-03-20 09:25] VITALS: BP 143/87
[2018-03-20] MEDS ORDERED: IOHEXOL 350 MG/ML 100 ML VIAL. IV ONE (11:30)
[2018-03-20] MEDS ORDERED: NITROGLYCERIN SUBLINGUAL 0.4 MG BOTTLE OF 25. SL PRN (11:45)
[2018-03-20] MEDS ORDERED: LOPERAMIDE 2 MG CAPSULE PO PRN (12:00)
--- NOTE | 2018-03-20 12:32 | RAD ---
PQRS Compliance statement: One or more of the following individualized dose reduction techniques were utilized for this examination: 1. Automated exposure control. 2. Adjustment of the mA and/or kV according to patient size. 3. Use of iterative reconstruction technique. Indication:Left upper chest pain and d-dimer positive. TECHNIQUE: CT angiogram of the chest with IV contrast with multiplanar MIP reformats. COMPARISON: 04/02/2015 FINDINGS: Slightly suboptimal PE study for evaluation of distal subsegmental pulmonary arteries. No central, segmental or proximal segmental filling defects in the pulmonary arteries. Heart is mildly enlarged in size. No pericardial or pleural effusion. CABG changes noted. Left chest wall pacemaker with its leads projecting in the right heart. Mild diffuse atherosclerotic disease of the thoracic aorta. No enlarged axillary, mediastinal or hilar adenopathy. Central airways are patent. Lungs are clear. Visualized sections through the liver, spleen, gallbladder, adrenals and pancreas within normal limits. 2.1 cm low attenuating lesion is seen in the upper pole of the left kidney also of the interpolar left kidney, stable back to April 02, 2015 and most likely simple or minimally corticated cyst. No suspicious bony lesion. IMPRESSION: 1. Slightly suboptimal PE study for evaluation of distal subsegmental pulmonary arteries. Otherwise no central, segmental or proximal subsegmental PE. 2. No pneumonia or imaging evidence of acute pulmonary infarct. Electronically signed by: Sidney Olivera DO (03/20/2018 12:27 PM) [facility]
[2018-03-20 15:07] VITALS: BP 125/73
--- NOTE | 2018-03-20 17:45 | HP ---
ADMIT DATE: 03/20/2018 HISTORY OF PRESENT ILLNESS: This is a very pleasant 83-year-old white female with history of coronary artery disease, usual state of health until yesterday afternoon, evening when she began to experience chest pain underneath her pacemaker, which is on the left upper chest area except the pain was radiating up into her neck and down her left arm. She called her physician who recommended she come into the Emergency Room. She was unable to find her nitroglycerin and she came in through the ER and was admitted for rule out DC protocol. Since this patient had previous history of coronary artery disease and coronary artery bypass graft and previous stents. So, the patient was admitted for rule out DC protocol. She denies shortness of breath. She denied nausea, diaphoresis or any other associated symptoms except for the problem of the pain that occurred right underneath the pacemaker and radiating to the left side of the neck, face with some numbness of the face and left arm. The ER notes some marked shortness of breath; however, the patient gave the history that she did not have any shortness of breath. PAST MEDICAL HISTORY: Includes coronary artery disease, status post PTCA in 2009, coronary artery bypass graft 2016, hypertension, hyperlipidemia followed at by Dr. Santacruz. Congestive heart failure, osteoarthritis. She also underwent a left heart catheterization in 2017, those results are not available. PAST SURGICAL HISTORY: PTCA, stent deployment, coronary artery bypass, pacemaker placement, right total knee arthroplasty, bilateral cataract extraction, tonsillectomy, appendectomy, total abdominal hysterectomy and back surgery. ALLERGIES: SHE IS ALLERGIC TO STATINS. However, apparently she has been on Livalo without any problem and that cannot be substituted. SHE HAS PROBLEMS WITH ADHESIVE TAPE, BACITRACIN, ZETIA, LATEX, NEOMYCIN, POLYMYXIN AND DARVON, WHICH OF COURSE HAS BEEN DISCONTINUED FROM THE [employer]. FAMILY HISTORY: One older brother who had heart disease, on the pacemaker. Father at 69 of lung cancer. Mother of myocardial infarction. SOCIAL HISTORY: The patient lives at home with her , who apparently has some mild dementia. She also has a son who obviously takes care of both the parents. She is an ex-smoker about more than 50 years. Denies alcohol or drug use presently. PRESENT MEDICATIONS: List includes Ranexa 500 mg q. 12, Livalo 4 mg a day, Niaspan 1000 mg at bedtime, omega-3 fish oil, isosorbide mononitrate, nitroglycerin, metoprolol succinate, Aspirin 81, Celebrex 200 mg daily, Tylenol 500, furosemide 40, Alphagan eyedrops 5 mL p.o. daily for glaucoma, dorzolamide hydrochloride 10 mL of 1 drop b.i.d., latanoprost 1 drop o.u., Imodium p.r.n., Pepcid 40 mg a day, Protonix 40 mg a day, vitamin D3. REVIEW OF SYSTEMS: She denies any headaches, visual changes, blurred vision, double vision. Denies any neurological dysfunction. No weakness, no paresthesias, no trouble with her speech, mental process. No negative signs for expressive aphasia. PHYSICAL EXAMINATION: GENERAL: The patient otherwise on exam is a very pleasant white female in no apparent distress at the present time. VITAL SIGNS: Blood pressure 125/70, respiratory rate 20, pulse 70, afebrile. HEENT: The patient's head was atraumatic, normocephalic. Eyes: PERRLA without jaundice. Mouth and throat were normal. NECK: Supple, without JVD, carotid bruits or thyromegaly. LUNGS: Clear to auscultation. CARDIOVASCULAR: Regular sinus rhythm, S1, S2, without murmur, rub, thrill, or extra heart sounds. Pacemaker seems to be intact without any obvious signs of any problems on the surface. ABDOMEN: Soft, nontender, no rebound or guarding. Positive bowel sounds, no hepatosplenomegaly. EXTREMITIES: No clubbing, cyanosis, had some trace edema. Pulses was noted distally. NEUROLOGIC: The patient is alert and oriented. Her speech was spontaneous, fluent and appropriate. Cranial nerves 2-12 grossly intact. LABORATORY DATA: Hemoglobin and hematocrit 12 and 38, white count 6. The patient's sodium and potassium is ____. BUN and creatinine 32 and 1.2. GFR estimated 43. CPK of 461. Troponins negative. Elevation of the BNP to 1200. Lipase is negative. The patient's chest x-ray was unremarkable. CTA was done because of positive slight elevation of the D-dimer, showed negative for PE. Chest x-ray shows the possibility of a mild atypical infection, but the CTA was negative for any evidence of pneumonia. IMPRESSION AND PLAN: Chest pain in a patient with an obviously long history of coronary artery disease occurred at rest. The patient admitted for rule out DC protocol. So far, all has been negative there. Continue to monitor her and all goes well hopefully ready for discharge in the a.m. PAM OROZCO MD DR: RANULFO/lee JOB#: [id number] / [id number]
[2018-03-20 18:40] VITALS: BP 133/72
[2018-03-20 20:48] LABS: BILIRUBIN,URINE NEG (NEG); CLARITY,URINE HAZY; COLOR,URINE STRAW; GLUCOSE,URINE NEG (NEG); NITRITE,URINE NEG (NEG); RBC,URINE OCC /HPF (0-2); UROBILINOGEN,URINE 0.2 mg/dL (0.2 mg/dL)
[2018-03-20 20:49] LABS: BACTERIA,URINE FEW /HPF (0-FEW); SQUAMOUS EPITHELIAL CELL,UR OCC /LPF; WBC,URINE 20-40 /HPF (0-4)
[2018-03-20] MEDS ORDERED: RANOLAZINE 500 MG TAB.ER.12H PO SCH (21:00)
[2018-03-20] MEDS: DORZOLAMIDE 2% OPHTH SOLUTION 10ML BOTTLE. OU SCH (21:00)
[2018-03-20] MEDS: LATANOPROST 0.005% OPHTH SOLUTION 2.5ML BOTTLE. OU SCH (21:00)
[2018-03-20] MEDS: ACETAMINOPHEN 500 MG TABLET PO SCH (21:36)
[2018-03-20] MEDS: clonazePAM 1 MG TABLET PO SCH (21:36)
[2018-03-20] MEDS: CHOLECALCIFEROL (VITAMIN D3) 1,000 UNIT TABLET PO SCH (21:36)
[2018-03-20] MEDS: METOPROLOL SUCC 24HR ER 25 MG TAB.ER.24H. PO SCH (21:37)
[2018-03-20] MEDS: NIACIN ER 500 MG TABLET.ER PO SCH (21:37)
[2018-03-20] MEDS: POTASSIUM CHLORIDE 10 MEQ TABLET.ER. PO SCH (21:37)
[2018-03-20] MEDS: FAMOTIDINE 20 MG TABLET PO SCH (21:37)
[2018-03-20 23:00] VITALS: BP 129/63
[2018-03-21 06:28] VITALS: BP 138/77
[2018-03-21] MEDS: ACETAMINOPHEN 500 MG TABLET PO SCH ×2 (08:51→20:04)
[2018-03-21] MEDS: OMEGA-3 FATTY ACIDS/FISH OIL 1,000 MG CAPSULE. PO SCH (08:51)
[2018-03-21] MEDS: ASPIRIN ENTERIC COATED 81 MG TABLET.DR. PO SCH (08:51)
[2018-03-21] MEDS: CHOLECALCIFEROL (VITAMIN D3) 1,000 UNIT TABLET PO SCH ×2 (08:52→20:04)
[2018-03-21] MEDS: POTASSIUM CHLORIDE 10 MEQ TABLET.ER. PO SCH ×2 (08:52→20:05)
[2018-03-21] MEDS: CELECOXIB 100 MG CAPSULE PO SCH (08:52)
[2018-03-21] MEDS: PANTOPRAZOLE 40 MG TABLET. PO SCH (08:52)
[2018-03-21] MEDS: ISOSORBIDE MONONITRATE ER 30 MG TAB.ER.24H PO SCH (08:52)
[2018-03-21] MEDS: APIXABAN 2.5 MG TABLET PO SCH ×2 (08:52→20:06)
[2018-03-21] MEDS: FUROSEMIDE 40 MG TABLET PO SCH (08:52)
[2018-03-21] MEDS: BRIMONIDINE 0.2% OPHTH SOLUTION 5ML BOTTLE. OU SCH (08:53)
[2018-03-21] MEDS: DORZOLAMIDE 2% OPHTH SOLUTION 10ML BOTTLE. OU SCH ×2 (08:53→20:03)
[2018-03-21] MEDS: PITAVASTATIN CALCIUM 4 MG PO SCH (09:00)
[2018-03-21 11:08] VITALS: BP 152/73
--- NOTE | 2018-03-21 11:46 | PDOC2 ---
KURTGUMARO Earnest CHAIR INSPECTOR 03/21/18 1146: CONSULT Date of Admission DATE: 03/21/18 TIME: 11:44 Reason for Consult: chest pain History of Present Illness Ms Aguero is an 83 year old female who presented with complaints of left chest pain, beneath her pacemaker which radiated up into her jaw, ear and down her left arm. She describes sharp shooting pain that was unrelated to exertion. She reports she was given nitrates in the ED but by that time her pain was already almost gone. She reports this discomfort is not like her prior anginal symptoms. She denies congestive symptoms, palpitations, lightheadedness or syncope. She does report a fall about 2 months ago when she tripped in her garage and landed on her right side. She reports right shoulder pain since that time. Past Medical History Past Medical History Echo 05/05/16 The left ventricular systolic function is normal. The Ejection Fraction is 60-65%. There is normal LV segmental wall motion. Transmitral Doppler flow pattern is Grade I-abnormal relaxation pattern. Mild mitral regurgitation. Mild tricuspid regurgitation. The pulmonary artery systolic pressure is estimated at 24 mmHg. There is no evidence of significant pericardial effusion. Cath april 2016 She was noted to have progression of LAD disease but a well patent PERALTA graft and so was continued on medical therapy. Significant for coronary artery disease status post PTCA in 2009, coronary artery bypass graft surgery in 2015, hypertension, hyperlipidemia, congestive heart failure, osteoarthritis, PPM placement. Past Surgical History Significant for PTCA and stent, coronary artery bypass graft surgery, permanent pacemaker placement, right total knee arthroplasty, bilateral cataract extraction, tonsillectomy, appendectomy, total abdominal hysterectomy, bilateral salpingo-oophorectomy and back surgery. Family History Has one older brother who is alive and has coronary artery bypass graft surgery and pacemaker placement. Her father at the age of 69 because of lung cancer. The mother secondary to myocardial infarction. Social History She is and lives with her who has normal pressure hydrocephalus. She has a daughter and a son. She is an ex-smoker quit 50 years ago. She drinks alcohol occasionally. 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 Current Medications Current Medications Aspirin (Children'S Aspirin) 324 mg 1X ONCE PO Last administered on 03/20/18at 07:39; Start 03/20/18 at 06:45; Stop 03/20/18 at 06:46; Status DC Nitroglycerin (Nitrostat) 0.4 mg 1X ONCE SL Last administered on 03/20/18 07: 42; Start 03/20/18 at 07:30; Stop 03/20/18 at 07:31; Status DC Isosorbide Mononitrate (Imdur) 60 mg DAILY PO Last administered on 03/21/18 08 :52; Start 03/21/18 at 09:00 Metoprolol Succinate (Toprol Xl) 50 mg HS PO Last administered on 03/20/18 21: 37; Start 03/20/18 at 21:00 Nitroglycerin (Nitrostat) 0.4 mg PRN Q5MIN PRN SL CHEST PAIN; Start 03/20/18 at 11:45 Fish Oil (Fish Oil) 2,000 mg DAILY PO Last administered on 03/21/18 08:51; Start 03/21/18 at 09:00 Potassium Chloride (Klor-Con) 10 meq BID PO Last administered on 03/21/18 08: 52; Start 03/20/18 at 21:00 Ranolazine (Ranexa) 500 mg BID PO ; Start 03/20/18 at 21:00; Status Cancel Acetaminophen (Tylenol) 500 mg BID PO Last administered on 03/21/18 08:51; Start 03/20/18 at 21:00 Aspirin (Aspirin Enteric Coated) 81 mg DAILYWBKFT PO Last administered on 08:51; Start 03/21/18 at 08:00 Brimonidine Tartrate (Alphagan) 1 drop DAILY OU Last administered on 03/21/18 08:53; Start 03/21/18 at 09:00 Celecoxib (CeleBREX) 200 mg DAILY PO Last administered on 03/21/18 08:52; Start 03/21/18 at 09:00 Vitamin D (Vitamin D3) 2,000 unit BID PO Last administered on 03/21/18 08:52; Start 03/20/18 at 21:00 Dorzolamide HCl (Trusopt) 1 drop BID OU Last administered on 03/21/18 08:53; Start 03/20/18 at 21:00 Famotidine (Pepcid) 40 mg HS PO Last administered on 03/20/18 21:37; Start 11/26 at 21:00 Furosemide (Lasix) 40 mg DAILY PO Last administered on 03/21/18at 08:52; Start 03/21/18 at 09:00 Latanoprost (Xalatan) 1 drop QHS OU ; Start 03/20/18 at 21:00 Loperamide HCl (Imodium) 2 mg PRN Q4HRS PRN PO DIARRHEA; Start 03/20/18 at 12: 00 Niacin (Slo-Niacin) 1,000 mg QHS PO Last administered on 03/20/18at 21:37; Start 03/20/18 at 21:00 Pantoprazole Sodium (Protonix) 40 mg DAILY PO Last administered on 03/21/18at 08 :52; Start 03/21/18 at 09:00 Non-Formulary Medication (Pitavastatin Calcium (Livalo)) 4 mg DAILY PO ; Start 03/21/18 at 09:00; Status UNV Iohexol (Omnipaque 350 Mg/ml) 65 ml 1X ONCE IV Last administered on 03/20/18at 11:33; Start 03/20/18 at 11:30; Stop 03/20/18 at 11:31; Status DC Clonazepam (KlonoPIN) 1 mg HS PO Last administered on 03/20/18at 21:36; Start at 21:00 Apixaban (Eliquis) 2.5 mg BID PO Last administered on 03/21/18at 08:52; Start at 09:00 Active Scripts Active Ranexa (Ranolazine) 500 Mg Tab.er.12h 500 Mg PO BID 90 Days Isosorbide Mononitrate Er (Isosorbide Mononitrate) 30 Mg Tab.er.24h 60 Mg PO DAILY 90 Days Reported Livalo (Pitavastatin Calcium) 4 Mg Tablet 4 Mg PO DAILY LAST DOSE GIVEN: DATE: CONTINUE PRESCRIBED TIME: NEXT DOSE DUE: DATE: TIME: Latanoprost 2.5 Ml Drops 1 Drop EACHEYE QHS LAST DOSE GIVEN: DATE: YESTERDAY TIME: NEXT DOSE DUE: DATE: TONIGHT TIME: Famotidine 40 Mg Tablet 1 Tab PO HS LAST DOSE GIVEN: DATE: YESTERDAY TIME: NEXT DOSE DUE: DATE: TONIGHT TIME: Trusopt (Dorzolamide Hcl) 10 Ml Drops 1 Drop OP BID LAST DOSE GIVEN: DATE: THIS MORNING TIME: NEXT DOSE DUE: DATE: THIS EVENING TIME: Vitamin D3 (Cholecalciferol (Vitamin D3)) 2,000 Unit Capsule 2,000 Unit PO BID LAST DOSE GIVEN: DATE: CONTINUE PRESCRIBED TIME: NEXT DOSE DUE: DATE: TIME: Celebrex (Celecoxib) 200 Mg Capsule 1 Cap PO DAILY LAST DOSE GIVEN: DATE:TODAY TIME: NEXT DOSE DUE: DATE:TOMORROW TIME: Imodium Multi-Symptom Rel Cplt (Loperamide Hcl/Simethicone) 1 Each Tablet 1 Each PO Q4HRS PRN not given this admit may resume as needed Potassium Chloride 10 Meq Tab.er.prt 10 Meq PO BID last dose this morning next dose due tonight Protonix (Pantoprazole Sodium) 40 Mg Tablet.dr 40 Mg PO DAILY last dose this morning next dose due TOMORROW Pv Fish Oil 1,000 Mg Softgel ([place]-3 Fatty Acids/Vitamin E) 1,000 Mg Capsule 2, 000 Mg PO DAILY last dose this morning next dose due tomorrow Nitrostat (Nitroglycerin) 0.4 Mg Tab.subl 0.4 Mg SL Q5MIN X3 DOSES PRN not given on unit may resume as needed Niaspan (Niacin) 1,000 Mg Tab.er.24h 1,000 Mg PO HS last dose YESTERDAY PM next dose TONIGHT Toprol Xl (Metoprolol Succinate) 25 Mg Tab.er.24h 50 Mg PO HS LAST DOSE GIVEN: DATE: YESTERDAY TIME: PM NEXT DOSE DUE: DATE: TONIGHT TIME: Lasix (Furosemide) 40 Mg Tablet 40 Mg PO DAILY LAST DOSE GIVEN: DATE: TODAY TIME: AM NEXT DOSE DUE: DATE: TOMORROW TIME: AM Alphagan P (Brimonidine Tartrate) 5 Ml Drops 5 Ml OP DAILY RESUME WHEN YOU GET HOME Aspir 81 (Aspirin) 81 Mg Tablet.dr 81 Mg PO DAILY last dose this morning next dose due tomorrow Acetaminophen 500 Mg Tablet 500 Mg PO BID LAST DOSE GIVEN: DATE: TODAY TIME: AM NEXT DOSE DUE: DATE: TODAY TIME: AFTERNOON IF NEEDED Allergies: Coded Allergies: latex (Verified Allergy, Severe, Rash, 03/20/18) Qwvmixh-Khj-Kqp Reductase Inhibitor (Unverified Allergy, Intermediate, muscle pain, 03/20/18) adhesive (Unverified Allergy, Intermediate, RASH, 03/20/18) bacitracin (Unverified Allergy, Intermediate, rash, 03/20/18) ezetimibe (Unverified Allergy, Intermediate, muscle pain, 03/20/18) neomycin (Unverified Allergy, Intermediate, rash, 03/20/18) polymyxin B (Unverified Allergy, Intermediate, rash, 03/20/18) propoxyphene (Unverified Allergy, Intermediate, HALLUCINATIONS, 03/20/18) Review of System as per HPI General: Alert, Oriented X3, Cooperative, No acute distress HEENT: Atraumatic, EOMI Lungs: Clear to auscultation, Normal air movement Heart: Normal S1, Normal S2, Other (no gallops, clicks or rubs) Abdomen: Normal bowel sounds, Soft, No tenderness Extremities: No cyanosis, Other (trace pedal edema) Neuro: Normal speech, Strength at 5/5 X4 ext Psych/Mental Status: Mental status NL, Mood NL VITALS Vital Signs Date Time Temp Pulse Resp B/P (MAP) Pulse Ox O2 Delivery O2 Flow Rate FiO2 03/21/18 11:08 97.5 109 20 152/73 (99) 92 Room Air Labs Laboratory Tests Test 03/20/18 06:35 03/20/18 10:29 03/20/18 13:34 03/20/18 19:30 White Blood Count 6.6 x10^3/uL (4.0-11.0) Red Blood Count 3.76 x10^6/uL (3.50-5.40) Hemoglobin 12.8 g/dL (12.0-15.5) Hematocrit 38.3 % (36.0-47.0) Mean Corpuscular Volume 102 fL (79-100) Mean Corpuscular Hemoglobin 34 pg (25-35) Mean Corpuscular Hemoglobin Concent 33 g/dL (31-37) Red Cell Distribution Width 13.6 % (11.5-14.5) Platelet Count 171 x10^3/uL (140-400) Neutrophils (%) (Auto) 55 % (31-73) Lymphocytes (%) (Auto) 24 % (24-48) Monocytes (%) (Auto) 12 % (0-9) Eosinophils (%) (Auto) 9 % (0-3) Basophils (%) (Auto) 1 % (0-3) Neutrophils # (Auto) 3.6 x10^3uL (1.8-7.7) Lymphocytes # (Auto) 1.6 x10^3/uL (1.0-4.8) Monocytes # (Auto) 0.8 x10^3/uL (0.0-1.1) Eosinophils # (Auto) 0.6 x10^3/uL (0.0-0.7) Basophils # (Auto) 0.1 x10^3/uL (0.0-0.2) D-Dimer (Kathy) 1.75 mg/L (0.00-0.50) Sodium Level 140 mmol/L (136-145) Potassium Level 4.0 mmol/L (3.5-5.1) Chloride Level 106 mmol/L (98-107) Carbon Dioxide Level 25 mmol/L (21-32) Anion Gap 9 (6-14) Blood Urea Nitrogen 32 mg/dL (7-20) Creatinine 1.2 mg/dL (0.6-1.0) Estimated GFR (Cockcroft-Gault) 42.9 BUN/Creatinine Ratio 27 (6-20) Glucose Level 106 mg/dL (70-99) Calcium Level 8.8 mg/dL (8.5-10.1) Magnesium Level 2.1 mg/dL (1.8-2.4) Total Bilirubin 0.7 mg/dL (0.2-1.0) Aspartate Amino Transf (AST/SGOT) 34 U/L (15-37) Alanine Aminotransferase (ALT/SGPT) 37 U/L (14-59) Alkaline Phosphatase 117 U/L (46-116) Creatine Kinase 461 U/L (26-192) Troponin I Quantitative 0.017 ng/mL (0-0.055) 0.018 ng/mL (0-0.055) 0.017 ng/mL (0-0.055) VC-Sbr-B-Type Natriuretic Peptide 1246 pg/mL (0-449) Total Protein 7.3 g/dL (6.4-8.2) Albumin 3.4 g/dL (3.4-5.0) Albumin/Globulin Ratio 0.9 (1.0-1.7) Lipase 202 U/L (73-393) Procalcitonin < 0.10 ng/mL (0.00-0.10) Mycoplasma Serology (LAB) Negative (NEGATIVE) Urine Collection Type Unknown Urine Color Straw Urine Clarity Hazy Urine pH 6.5 Urine Specific [place] 1.010 Urine Protein Neg (NEG-TRACE) Urine Glucose (UA) Neg mg/dL (NEG) Urine Ketones (Stick) Neg mg/dL (NEG) Urine Blood Trace (NEG) Urine Nitrite Neg (NEG) Urine Bilirubin Neg (NEG) Urine Urobilinogen Dipstick 0.2 mg/dL (0.2 mg/dL) Urine Leukocyte Esterase Mod (NEG) Urine RBC Occ /HPF (0-2) Urine WBC 20-40 /HPF (0-4) Urine Squamous Epithelial Cells Occ /LPF Urine Transitional Epithelial Cells Occ /LPF Urine Bacteria Few /HPF (0-FEW) Images EKG - AV paced CXR - IMPRESSION: Findings of COPD. Superimposed mild atypical/viral infection not ruled out. CTA - IMPRESSION: 1. Slightly suboptimal PE study for evaluation of distal subsegmental pulmonary arteries. Otherwise no central, segmental or proximal subsegmental PE. 2. No pneumonia or imaging evidence of acute pulmonary infarct. Assessment/Plan 1. atypical chest pain, more consistent with radiculopathy. MN ruled out. check lipids, echo, continue aspirin and beta navin. ambulate, if no reoccurring chest pain, could consider outpatient mpi 2. ppm with recent fall - suggest device interrogation 3. CAD/CABG status, Continue medical mgmt. check echo and lipids. if no significant abn, outpatient follow up with primary side show entertainer for possible stress test. 4. hypertension - controlled on current therapy 5. hyperlipidemia - check lipids, continue statin. PABLO STEPHENS MD 03/21/18 1701: CONSULT Assessment/Plan Patient seen and examined. Agree with VETERINARY MEDICINE TEACHER's assessment and plan. Chest pain with atypical features. Myocardial infarction ruled out. Check 2-D echo to assess LV systolic function and rule out wall motion abnormalities. Consider ischemic evaluation with stress test as an outpatient - defer to primary side show entertainer Thank you for your consultation GUMARO HICKS APRN Mar 21, 2018 11:46 PABLO STEPHENS MD Mar 21, 2018 17:01
--- NOTE | 2018-03-21 12:58 | PN ---
DATE: 03/21/2018 SUBJECTIVE: The patient is resting slightly propped up in bed, in no apparent distress. She is awake, alert. On questioning her, she denied any chest pain, denied any shortness of breath, cough, phlegm, or hemoptysis. She was awakened from sleep with severe pain around her pacemaker. The pain radiating to her left side of the face and neck and also left arm. She was evaluated in the Emergency Room and has had so far 3 sets of cardiac enzymes, all of them showed troponin to be less than 0.17. She has a paced rhythm and given that she has extensive cardiac history with PTCA and stent deployment, coronary artery bypass graft surgery, and she was admitted to rule out myocardial infarction to consult the cardiology team. Apparently, she has seen her insole coverer, Dr. Santacruz at [facility] about 2 weeks ago and apparently everything seemed to be fine. She said she had a stress test done within a year. It was also unremarkable. PHYSICAL EXAMINATION GENERAL: When I saw her today, she looked well, slightly pale, but no jaundice, cyanosis, or thyromegaly. No jugular venous distension. No limb edema. VITAL SIGNS: Her heart rate was 94, blood pressure was 138/77, temperature was 97.8, respiratory rate was 16, and oxygen saturation was 94%. HEAD, EYES, EARS, NOSE, AND THROAT: Showed normocephalic, atraumatic. NECK: Supple. HEART: Showed normal first and second heart sounds with no gallop, rub, or murmur. CHEST: Clear to auscultation. No crepitation or rhonchi. ABDOMEN: Distended, soft, nontender. NEUROLOGIC: She was awake, alert, responding appropriately. All cranial nerves intact. She moves extremities without difficulty. LABORATORY DATA: Showed a white cell count of 6600, hemoglobin 12.8, hematocrit 38, MCV 102, and platelet count of 171,000. Her chemistry showed serum sodium of 140, potassium 4, chloride 106, bicarbonate 25, anion gap of 9, BUN 32, creatinine 1.2, estimated GFR was 43 mL per minute. His glucose was 106, calcium was 8.8, magnesium was 2.1. Total bilirubin, AST, ALT, alkaline phosphatase were normal. Her CK was 461 and two sets of cardiac enzyme done after admission showed a troponin to be less than 0.08 and less than 0.017. Her total protein was 7.3, albumin was 3.4. Lipase was 202. D-dimer was 1.75 g/dL. She did have a CT angio of the chest, which basically showed slightly suboptimal PE study for evaluation of the distal segmental arteries, otherwise no central segmental proximal subsegmental PE, no pneumonia or imaging evidence of acute pulmonary infarct. We have consulted the Cardiology team and we will decide the further management according to their recommendation. DORINDA MEJIA MD DR: SHEILA/lee JOB#: [id number] / [id number]
[2018-03-21 14:57] VITALS: BP 145/77
[2018-03-21 19:38] VITALS: BP_SYST 135; BP_DIAS 64; BP_DIAS 76
[2018-03-21] MEDS: LATANOPROST 0.005% OPHTH SOLUTION 2.5ML BOTTLE. OU SCH (20:03)
[2018-03-21] MEDS: FAMOTIDINE 20 MG TABLET PO SCH (20:05)
[2018-03-21] MEDS: clonazePAM 1 MG TABLET PO SCH (20:05)
[2018-03-21] MEDS: NIACIN ER 500 MG TABLET.ER PO SCH (20:05)
[2018-03-21] MEDS: METOPROLOL SUCC 24HR ER 25 MG TAB.ER.24H. PO SCH (20:06)
[2018-03-21 23:00] VITALS: BP 141/89
[2018-03-22 05:30] VITALS: BP 137/75
[2018-03-22] MEDS: OMEGA-3 FATTY ACIDS/FISH OIL 1,000 MG CAPSULE. PO SCH (08:50)
[2018-03-22] MEDS: ISOSORBIDE MONONITRATE ER 30 MG TAB.ER.24H PO SCH (08:51)
[2018-03-22] MEDS: FUROSEMIDE 40 MG TABLET PO SCH (08:51)
[2018-03-22] MEDS: CHOLECALCIFEROL (VITAMIN D3) 1,000 UNIT TABLET PO SCH (08:51)
[2018-03-22] MEDS: POTASSIUM CHLORIDE 10 MEQ TABLET.ER. PO SCH (08:52)
[2018-03-22] MEDS: APIXABAN 2.5 MG TABLET PO SCH (08:52)
[2018-03-22] MEDS: ACETAMINOPHEN 500 MG TABLET PO SCH (08:52)
[2018-03-22] MEDS: PANTOPRAZOLE 40 MG TABLET. PO SCH (08:52)
[2018-03-22] MEDS: ASPIRIN ENTERIC COATED 81 MG TABLET.DR. PO SCH (08:52)
[2018-03-22] MEDS: DORZOLAMIDE 2% OPHTH SOLUTION 10ML BOTTLE. OU SCH (08:53)
[2018-03-22] MEDS: BRIMONIDINE 0.2% OPHTH SOLUTION 5ML BOTTLE. OU SCH (08:53)
[2018-03-22] MEDS: CELECOXIB 100 MG CAPSULE PO SCH (08:53)
[2018-03-22] MEDS: PITAVASTATIN CALCIUM 4 MG PO SCH (08:53)
[2018-03-22 10:56] VITALS: BP 135/76
--- NOTE | 2018-03-22 12:57 | PDOC ---
PROGRESS NOTES Assessment 1. atypical chest pain, more consistent with radiculopathy. MS ruled out. lipids and echo pending. continue aspirin and beta navin. if no significant abn on echo, outpatient follow up with primary aeronautical inspector for possible MPI. 2. ppm with recent fall - suggest device interrogation today to rule out any issues after fall at home in the last 2 months. 3. CAD/CABG status, Continue medical mgmt. check echo and lipids. angina free. outpatient follow up with primary aeronautical inspector for possible stress test. 4. hypertension - controlled on current therapy 5. hyperlipidemia - continue statin, await lipids Subjective no chest pain, dyspnea or palpitations, no lightheadedness Objective Vital Signs Date Time Temp Pulse Resp B/P (MAP) Pulse Ox O2 Delivery O2 Flow Rate FiO2 03/22/18 10:56 97.3 71 20 135/76 (95) 97 Room Air Intake and Output 03/22/18 07:00 Intake Total 1580 ml Balance 1580 ml Intake Oral 1580 ml # Voids 2 Abdomen: Normal bowel sounds, Soft Heart: Normal S1, Normal S2 Extremities: No cyanosis, Other (trace edema) General: Alert, Oriented X3, Cooperative, No acute distress Lungs: Clear to auscultation Neuro: Normal speech Psych/Mental Status: Mental status NL, Mood NL Review of Relevant I have reviewed the following items amy (where applicable) has been applied. Labs Laboratory Tests Test 03/20/18 13:34 03/20/18 19:30 Troponin I Quantitative 0.017 ng/mL (0-0.055) Urine Collection Type Unknown Urine Color Straw Urine Clarity Hazy Urine pH 6.5 Urine Specific [place] 1.010 Urine Protein Neg (NEG-TRACE) Urine Glucose (UA) Neg mg/dL (NEG) Urine Ketones (Stick) Neg mg/dL (NEG) Urine Blood Trace (NEG) Urine Nitrite Neg (NEG) Urine Bilirubin Neg (NEG) Urine Urobilinogen Dipstick 0.2 mg/dL (0.2 mg/dL) Urine Leukocyte Esterase Mod (NEG) Urine RBC Occ /HPF (0-2) Urine WBC 20-40 /HPF (0-4) Urine Squamous Epithelial Cells Occ /LPF Urine Transitional Epithelial Cells Occ /LPF Urine Bacteria Few /HPF (0-FEW) Medications Current Medications Aspirin (Children'S Aspirin) 324 mg 1X ONCE PO Last administered on 03/20/18 07:39; Start 03/20/18 at 06:45; Stop 03/20/18 at 06:46; Status DC Nitroglycerin (Nitrostat) 0.4 mg 1X ONCE SL Last administered on 03/20/18 07: 42; Start 03/20/18 at 07:30; Stop 03/20/18 at 07:31; Status DC Isosorbide Mononitrate (Imdur) 60 mg DAILY PO Last administered on 03/22/18 08 :51; Start 03/21/18 at 09:00 Metoprolol Succinate (Toprol Xl) 50 mg HS PO Last administered on 03/21/18 20: 06; Start 03/20/18 at 21:00 Nitroglycerin (Nitrostat) 0.4 mg PRN Q5MIN PRN SL CHEST PAIN; Start 03/20/18 at 11:45 Fish Oil (Fish Oil) 2,000 mg DAILY PO Last administered on 03/22/18 08:50; Start 03/21/18 at 09:00 Potassium Chloride (Klor-Con) 10 meq BID PO Last administered on 03/22/18 08: 52; Start 03/20/18 at 21:00 Ranolazine (Ranexa) 500 mg BID PO ; Start 03/20/18 at 21:00; Status Cancel Acetaminophen (Tylenol) 500 mg BID PO Last administered on 03/22/18 08:52; Start 03/20/18 at 21:00 Aspirin (Aspirin Enteric Coated) 81 mg DAILYWBKFT PO Last administered on 08:52; Start 03/21/18 at 08:00 Brimonidine Tartrate (Alphagan) 1 drop DAILY OU Last administered on 03/22/18 08:53; Start 03/21/18 at 09:00 Celecoxib (CeleBREX) 200 mg DAILY PO Last administered on 03/22/18 08:53; Start 03/21/18 at 09:00 Vitamin D (Vitamin D3) 2,000 unit BID PO Last administered on 03/22/18 08:51; Start 03/20/18 at 21:00 Dorzolamide HCl (Trusopt) 1 drop BID OU Last administered on 03/22/18 08:53; Start 03/20/18 at 21:00 Famotidine (Pepcid) 40 mg HS PO Last administered on 03/21/18 20:05; Start 11/26 at 21:00 Furosemide (Lasix) 40 mg DAILY PO Last administered on 03/22/18 08:51; Start 03/21/18 at 09:00 Latanoprost (Xalatan) 1 drop QHS OU Last administered on 03/21/18at 20:03; Start 03/20/18 at 21:00 Loperamide HCl (Imodium) 2 mg PRN Q4HRS PRN PO DIARRHEA; Start 03/20/18 at 12: 00 Niacin (Slo-Niacin) 1,000 mg QHS PO Last administered on 03/21/18 20:05; Start 03/20/18 at 21:00 Pantoprazole Sodium (Protonix) 40 mg DAILY PO Last administered on 03/22/18 08 :52; Start 03/21/18 at 09:00 Non-Formulary Medication (Pitavastatin Calcium (Livalo)) 4 mg DAILY PO ; Start 03/21/18 at 09:00; Status UNV Iohexol (Omnipaque 350 Mg/ml) 65 ml 1X ONCE IV Last administered on 03/20/18 11:33; Start 03/20/18 at 11:30; Stop 03/20/18 at 11:31; Status DC Clonazepam (KlonoPIN) 1 mg HS PO Last administered on 03/21/18 20:05; Start at 21:00 Apixaban (Eliquis) 2.5 mg BID PO Last administered on 03/22/18 08:52; Start at 09:00 Active Scripts Active Ranexa (Ranolazine) 500 Mg Tab.er.12h 500 Mg PO BID 90 Days Isosorbide Mononitrate Er (Isosorbide Mononitrate) 30 Mg Tab.er.24h 60 Mg PO DAILY 90 Days Reported Livalo (Pitavastatin Calcium) 4 Mg Tablet 4 Mg PO DAILY LAST DOSE GIVEN: DATE: CONTINUE PRESCRIBED TIME: NEXT DOSE DUE: DATE: TIME: Latanoprost 2.5 Ml Drops 1 Drop EACHEYE QHS LAST DOSE GIVEN: DATE: YESTERDAY TIME: NEXT DOSE DUE: DATE: TONIGHT TIME: Famotidine 40 Mg Tablet 1 Tab PO HS LAST DOSE GIVEN: DATE: YESTER TIME: NEXT DOSE DUE: DATE: TONIGHT TIME: Trusopt (Dorzolamide Hcl) 10 Ml Drops 1 Drop OP BID LAST DOSE GIVEN: DATE: THIS MORNING TIME: NEXT DOSE DUE: DATE: THIS EVENING TIME: Vitamin D3 (Cholecalciferol (Vitamin D3)) 2,000 Unit Capsule 2,000 Unit PO BID LAST DOSE GIVEN: DATE: CONTINUE PRESCRIBED TIME: NEXT DOSE DUE: DATE: TIME: Celebrex (Celecoxib) 200 Mg Capsule 1 Cap PO DAILY LAST DOSE GIVEN: DATE:TODAY TIME: NEXT DOSE DUE: DATE:TOMORROW TIME: Imodium Multi-Symptom Rel Cplt (Loperamide Hcl/Simethicone) 1 Each Tablet 1 Each PO Q4HRS PRN not given this admit may resume as needed Potassium Chloride 10 Meq Tab.er.prt 10 Meq PO BID last dose this morning next dose due tonight Protonix (Pantoprazole Sodium) 40 Mg Tablet. 40 Mg PO DAILY last dose this morning next dose due TOMORROW Pv Fish Oil 1,000 Mg Softgel ([place]-3 Fatty Acids/Vitamin E) 1,000 Mg Capsule 2, 000 Mg PO DAILY last dose this morning next dose due tomorrow Nitrostat (Nitroglycerin) 0.4 Mg Tab.subl 0.4 Mg SL Q5MIN X3 DOSES PRN not given on unit may resume as needed Niaspan (Niacin) 1,000 Mg Tab.er.24h 1,000 Mg PO HS last dose YESTERDAY PM next dose TONIGHT Toprol Xl (Metoprolol Succinate) 25 Mg Tab.er.24h 50 Mg PO HS LAST DOSE GIVEN: DATE: YESTERDAY TIME: PM NEXT DOSE DUE: DATE: TONIGHT TIME: Lasix (Furosemide) 40 Mg Tablet 40 Mg PO DAILY LAST DOSE GIVEN: DATE: TODAY TIME: AM NEXT DOSE DUE: DATE: TOMORROW TIME: AM Alphagan P (Brimonidine Tartrate) 5 Ml Drops 5 Ml OP DAILY RESUME WHEN YOU GET HOME Aspir 81 (Aspirin) 81 Mg Tablet. 81 Mg PO DAILY last dose this morning next dose due tomorrow Acetaminophen 500 Mg Tablet 500 Mg PO BID LAST DOSE GIVEN: DATE: TODAY TIME: AM NEXT DOSE DUE: DATE: TODAY TIME: AFTERNOON IF NEEDED Vitals/I & O Vital Sign - Last 24 Hours 03/21/18 03/21/18 03/21/18 03/21/18 14:57 19:38 20:00 20:06 Temp 97.4 97.4 Pulse 83 68 68 Resp 20 18 B/P (MAP) 145/77 (99) 135/76 (95) 135/76 Pulse Ox 99 98 O2 Delivery Room Air Room Air Room Air 03/21/18 03/22/18 03/22/18 03/22/18 23:00 05:30 07:30 08:51 Temp 97.8 97.8 Pulse 92 72 72 Resp 20 18 B/P (MAP) 141/89 (106) 137/75 (95) 137/75 Pulse Ox 94 96 O2 Delivery Room Air Room Air Room Air 03/22/18 10:56 Temp 97.3 Pulse 71 Resp 20 B/P (MAP) 135/76 (95) Pulse Ox 97 O2 Delivery Room Air Intake and Output 03/21/18 03/21/18 03/22/18 15:00 23:00 07:00 Intake Total 960 ml 560 ml 60 ml Balance 960 ml 560 ml 60 ml GUMARO HICKS APRN Mar 22, 2018 12:57
--- NOTE | 2018-03-22 13:06 | CARD ---
MR#: [id number] Date of Study: 03/22/2018 Ordering Physician: GUMARO HICKS, Referring Physician: DORINDA MEJIA, Tech: Kalli Dunaway APPROVED REPORT EXAM: Two-dimensional and M-mode echocardiogram with Doppler and color Doppler. Other Information Quality : AverageHR: 70bpm Rhythm : Pacemaker INDICATION CAD Chest Pain Surgery/Intervention Pacemaker: Date: 2015 RISK FACTORS Hypertension Hyperlipidemia Previous smoker 2D DIMENSIONS RVDd2.8 (2.9-3.5cm)Left Atrium(2D)4.2 (1.6-4.0cm) IVSd1.2 (0.7-1.1cm)Aortic Root(2D)2.6 (2.0-3.7cm) LVDd4.7 (3.9-5.9cm)LVOT Diameter2.0 (1.8-2.4cm) PWd1.1 (0.7-1.1cm)LVDs3.3 (2.5-4.0cm) FS (%) 30.0 %SV58.5 ml LVEF(%)57.2 (>50%) Aortic Valve AoV Peak Bib.127.0cm/sAoV VTI29.2cm AO Peak GR.6.4mmHgLVOT Peak Bib.100.2cm/s LVOT VTI 22.77cmAO Mean GR.4mmHg GILES (VMAX)2.57he9DSF (VTI)2.57cm2 Mitral Valve MV E Emivarcp28.4cm/sMV E Peak Gr.115mmHg MV DECEL [id number] A Ppipiuma68.4cm/s E/A Ratio1.2 Pulmonary Valve PV Peak Yefyrexn34.0cm/sPV Peak Grad.3mmHg Tricuspid Valve TR P. Bjtreyvz643uk/sRAP [id number] TR Peak Gr.94yaQjTHQN94isMs Pulmonary Vein S1 Rtiygfaq82.8cm/sD2 Fdtyiwst29.9cm/s LEFT VENTRICLE The left ventricle is normal size. There is mild concentric left ventricular hypertrophy. The left ve ntricular systolic function is low normal. The Ejection Fraction is 50-55%. There is normal LV segmen hayley wall motion. The left ventricular diastolic function and filling is normal for age. RIGHT VENTRICLE The right ventricle is normal size. There is normal right ventricular wall thickness. The right ventr icular systolic function is normal. There is a device lead in the right ventricle. ATRIA The left atrium is borderline dilated. The right atrium size is normal. The interatrial septum is int act with no evidence for an atrial septal defect or patent foramen ovale as noted on 2-D or Doppler i maging. AORTIC VALVE The aortic valve is thickened but opens well. Doppler and Color Flow revealed no significant aortic r egurgitation. There is no significant aortic valvular stenosis. MITRAL VALVE The mitral valve is normal in structure and function. There is no evidence of mitral valve prolapse. There is no mitral valve stenosis. Doppler and Color-flow revealed trace mitral regurgitation. TRICUSPID VALVE The tricuspid valve is normal in structure and function. Doppler and Color Flow revealed mild to mode rate tricuspid regurgitation. There is no tricuspid valve stenosis. PULMONIC VALVE The pulmonary valve is normal in structure and function. Doppler and Color Flow revealed trace pulmon ic valvular regurgitation. GREAT VESSELS The aortic root is normal in size. The IVC is normal in size and collapses >50% with inspiration. PERICARDIAL EFFUSION There is no evidence of significant pericardial effusion. Critical Notification Critical Value: No <Conclusion> The left ventricle is normal size. The left ventricular systolic function is low normal. The Ejection Fraction is 50-55%. There is mild concentric left ventricular hypertrophy. There is a device lead in the right ventricle. There is no significant aortic valvular stenosis. Doppler and Color Flow revealed no significant aortic regurgitation. Doppler and Color-flow revealed trace mitral regurgitation. Doppler and Color Flow revealed mild to moderate tricuspid regurgitation. Signed by : Francisco Ugalde MD Electronically Approved : 03/22/2018 13:05:48
[2018-03-22] MEDS ORDERED: NITR0.4T22 SL (14:05)
--- NOTE | 2018-03-22 14:39 | DS ---
DATE OF DISCHARGE: 03/22/2018 HOSPITAL COURSE: The patient was admitted with left-sided chest pain that radiating to her face and neck and left arm. She has had 3 sets of cardiac enzymes that ruled out myocardial infarction. She was seen in consultation by the marketing ambassador, recommended echocardiogram and also interrogation of her pacemaker. She has recent fall at home. She has had an echocardiogram done, which showed that her left ventricular size is normal. Left ventricular systolic function is low normal. Her ejection fraction is 50-55%. She has mild concentric left ventricular hypertrophy. There is a device lead in the right ventricle. There is no significant aortic valvular stenosis. Doppler and color flow revealed no significant aortic regurgitation. There was a trace of mitral regurgitation, zeio-ec-kvqbsmjp tricuspid regurgitation. Her pacemaker was interrogated and apparently functioning well and a decision was made to discharge her home to follow with her primary care physician and marketing ambassador. PHYSICAL EXAMINATION: GENERAL: When I saw her this afternoon, she was resting, slightly propped up in bed, in no apparent respiratory distress, slightly pale, no jaundice, cyanosis or thyromegaly. No jugular venous distention. No limb edema. VITAL SIGNS: Her heart rate was 71, blood pressure was 135/76, temperature was 97.3, respiratory rate 20, and oxygen saturation was 97%. HEAD, EYES, EARS, NOSE AND THROAT: Showed normocephalic, atraumatic. NECK: Supple. HEART: Showed normal first and second heart sounds with no gallop, rub or murmur. CHEST: Clear to auscultation. No crepitation or rhonchi. ABDOMEN: Distended, soft, nontender. NEUROLOGIC: She was awake, alert, responding appropriately. All cranial nerves intact. She moves extremities without difficulty. She ambulates with a walker. Her intake over the last 24 hours was 1500, no output was recorded. LABORATORY DATA: Showed her serum sodium was 140, potassium 4, chloride 106, bicarbonate 25, anion gap of 9, BUN 32, creatinine 1.2, estimated GFR was 43 mL per minute. Her glucose was 106, calcium was 8.8, magnesium 2.1. Total bilirubin, AST, ALT were normal. Alkaline phosphatase slightly elevated. She has 3 sets of cardiac enzymes that ruled out myocardial infarction. Total protein was 7.3, albumin was 3.4. Her white cell count was 6600, hemoglobin 13, hematocrit 38, MCV 102, and platelet count of 171,000. DISCHARGE MEDICATIONS: She was discharged home to continue nitroglycerin 0.4 mg sublingually every 5 minutes as needed, acetaminophen 500 mg twice a day, aspirin 81 mg once a day, brimonidine 1 drop to both eyes daily, Celebrex 200 mg daily, Calciferol vitamin D3 2000 international units twice a day, dorzolamide 1 drop to both eyes twice a day, famotidine 40 mg at bedtime, furosemide 40 mg daily, isosorbide mononitrate 30 mg once a day, latanoprost 1 drop to both eyes at bedtime, loperamide, simethicone for one tablet every 4 hours as needed for diarrhea, metoprolol succinate for Toprol-XL 50 mg once a day, niacin 1000 mg at bedtime, nitroglycerin, omega 3 fatty acids 2000 mg once a day, Protonix 40 mg once a day, pitavastatin for Livalo 4 mg p.o. daily, potassium chloride 10 mEq twice a day, ranolazine for Ranexa 500 mg twice a day. FINAL DISCHARGE DIAGNOSES: Chest pain, atypical, more consistent with radiculopathy. Myocardial infarction was ruled out. Recent fall with device interrogation showed that there are no issues and was functioning normally. Coronary artery disease, status post coronary artery bypass graft. Continue with all her current medication. Hypertension, well controlled. Hyperlipidemia, well controlled. DORINDA MEJIA MD DR: SHEILA/lee JOB#: [id number] / [id number]
== END 2018-03-22 14:40 | disposition home or self-care (01) | DRG 313 ==
LOC: ER 06:12 → 1 SOUTH 08:40
PROVIDERS: ADMIT Internal Medicine; ATTEND Internal Medicine
PROC: 4B02XSZ Measurement of Cardiac Pacemaker, External Approach (ICD-10-PCS; principal; 2018-03-22)
DX: R07.89 Other chest pain (principal); Z88.8 Allergy status to other drugs, medicaments and biological substances; M54.10 Radiculopathy, site unspecified; N28.9 Disorder of kidney and ureter, unspecified; I50.9 Heart failure, unspecified; I11.0 Hypertensive heart disease with heart failure; E78.00 Pure hypercholesterolemia, unspecified; E78.5 Hyperlipidemia, unspecified; F03.90 Unspecified dementia, unspecified severity, without behavioral disturbance, psychotic disturbance, mood disturbance, and anxiety; H40.9 Unspecified glaucoma; I25.10 Atherosclerotic heart disease of native coronary artery without angina pectoris; F41.9 Anxiety disorder, unspecified; M19.90 Unspecified osteoarthritis, unspecified site; K21.9 Gastro-esophageal reflux disease without esophagitis; Z80.1 Family history of malignant neoplasm of trachea, bronchus and lung; Z82.49 Family history of ischemic heart disease and other diseases of the circulatory system; Z87.891 Personal history of nicotine dependence; Z90.710 Acquired absence of both cervix and uterus; Z95.0 Presence of cardiac pacemaker; Z95.5 Presence of coronary angioplasty implant and graft; Z96.651 Presence of right artificial knee joint; Z98.41 Cataract extraction status, right eye; Z98.42 Cataract extraction status, left eye; Z87.440 Personal history of urinary (tract) infections; Z86.718 Personal history of other venous thrombosis and embolism; Z85.9 Personal history of malignant neoplasm, unspecified; Z90.49 Acquired absence of other specified parts of digestive tract; Z95.1 Presence of aortocoronary bypass graft; Z91.040 Latex allergy status
CPT/HCPCS: 36415; 71046; 71275; 80053; 81001; 82550; 83690; 83735; 83880; 84145; 84484; 85025; 85379; 86738; 93005; 93306; Q9967; 99285-25

== ENCOUNTER 2018-06-06 15:13 | Inpatient (IN) | payer MEDICARE ==
[~2018-06-06] VITALS: Ht 165.1 cm; Wt 90.3 kg
[~2018-06-06 15:13] MED LIST changes: +NITR0.4T22 SL
--- NOTE | 2018-06-06 15:32 | EKG ---
[address] [address] Test Date: 2018-06-06 Test Time: 15:23:23 Pat Name: TREASURE CONTI Department: Room: Gender: F Director Immunology: : 1935 Requested By: PHILIP ROBERTS Order Number: [id number] Reading MD: Francisco Ugalde Measurements Intervals [place] Rate: 83 P: MT: QRS: 103 QRSD: 158 T: -73 QT: 396 QTc: 471 Interpretive Statements V PACED RHYTHM Electronically Signed On 06-10-2018 9:22:00 CDT by Francisco Ugalde
--- NOTE | 2018-06-06 15:42 | PHYS DOC ---
Past History Past Medical History: Anxiety, Arthritis, CAD, Cancer, DVT, GERD, Glaucoma, High Cholesterol, Hypertension, Renal Disease, UTI Past Surgical History: Angioplasty, Appendectomy, Coronary Bypass Surgery, Hysterectomy, Pacemaker, Other Smoking: Non-smoker Alcohol Use: None Drug Use: None Adult General Chief Complaint Chief Complaint: CHEST PAIN HPI HPI 83-year-old female presents with chest pain. The patient describes it as an intermittent chest pressure. She said several episodes of this over the last few days. The patient had an epidural back injection several days ago. Her first episode of pain was later that night after the injection. She is still having some back discomfort, but the chest pain is worse than that. These episodes seem to last several minutes, but have been getting shorter. She has an extensive cardiac history and thought that she should get things checked out just in case. She denies fever or chills. She denies shortness of breath or diaphoresis. Review of Systems Review of Systems Constitutional: Denies fever or chills [] Eyes: Denies change in visual acuity, redness, or eye pain [] HENT: Denies nasal congestion or sore throat [] Respiratory: Denies cough or shortness of breath [] Cardiovascular: No additional information not addressed in HPI [] GI: Denies abdominal pain, nausea, vomiting, bloody stools or diarrhea [] : Denies dysuria or hematuria [] Musculoskeletal: Denies back pain or joint pain [] Integument: Denies rash or skin lesions [] Neurologic: Denies headache, focal weakness or sensory changes [] Endocrine: Denies polyuria or polydipsia [] All other systems were reviewed and found to be within normal limits, except as documented in this note. Allergies Allergies Allergies Coded Allergies Type Severity Reaction Last Updated Verified latex Allergy Severe Rash 03/20/18 Yes Ibnztfp-Gcy-Qwj Reductase Inhibitor Allergy Intermediate muscle pain 03/20/18 No adhesive Allergy Intermediate RASH 03/20/18 No bacitracin Allergy Intermediate rash 03/20/18 No ezetimibe Allergy Intermediate muscle pain 03/20/18 No neomycin Allergy Intermediate rash 03/20/18 No polymyxin B Allergy Intermediate rash 03/20/18 No propoxyphene Allergy Intermediate HALLUCINATIONS 03/20/18 No Physical Exam Physical Exam Constitutional: Well developed, well nourished, no acute distress, non-toxic appearance. [] HENT: Normocephalic, atraumatic, bilateral external ears normal, oropharynx moist, no oral exudates, nose normal. [] Eyes: PERRLA, EOMI, conjunctiva normal, no discharge. [] Neck: Normal range of motion, no tenderness, supple, no stridor. [] Cardiovascular:Heart rate regular rhythm, no murmur [] Lungs & Thorax: Bilateral breath sounds clear to auscultation [] Abdomen: Bowel sounds normal, soft, no tenderness, no masses, no pulsatile masses. [] Skin: Warm, dry, no erythema, no rash. Scar from open heart surgery[] Back: No tenderness, no CVA tenderness. [] Extremities: No tenderness, no cyanosis, no clubbing, ROM intact, 2+ pitting edema bilateral lower extremities to the knees. [] Neurologic: Alert and oriented X 3, normal motor function, normal sensory function, no focal deficits noted. [] Psychologic: Affect normal, judgement normal, mood normal. [] EKG EKG EKG paced rhythm, rate 83, rightward axis, intraventricular block, no obvious ST elevation or depression.[] Radiology/Procedures Radiology/Procedures [] Impressions: EXAM: CHEST 1 VIEW History: Chest pain COMPARISON: 03/20/2018 TECHNIQUE: Single portable radiograph of the chest FINDINGS: Mild cardiomegaly. Left-sided cardiac pacer is unchanged. The costophrenic sulci are clear and well demarcated. IMPRESSION: No radiographic evidence of an acute cardiopulmonary process. Electronically signed by: Connor Sullivan MD (06/06/2018 4:08 PM) [facility] DICTATED AND SIGNED BY: CONNOR SULLIVAN MD DATE: 06/06/18 1608 CC: PHILIP ROBERTS DO; SHAHNAZ SALAZAR MD ~ EXAM: Abdomen sonogram. HISTORY: Pain and elevated liver function laboratory values. TECHNIQUE: Sonographic imaging of the abdomen was performed. COMPARISON: None. FINDINGS: The exam is limited due to body habitus and bowel gas. The liver is normal in size. No focal hepatic lesion is seen. The gallbladder wall is slightly thickened. The common bile duct is normal in caliber. The right kidney is unremarkable. The pancreas is obscured. There is echogenicity within the inferior vena cava which does not persist in the left lateral decubitus view, likely due to artifact or a valve. IMPRESSION: 1. Limited evaluation due to body habitus and bowel gas. The midline structures are predominantly obscured. 2. Slightly thickened gallbladder wall. This can be seen with intrinsic liver disease and slight gallbladder contraction. This is not clearly within limits to suggest cholecystitis. Electronically signed by: Yuko Meredith MD (06/06/2018 5:04 PM) [facility] DICTATED AND SIGNED BY: YUKO MEREDITH MD DATE: 06/06/18 6635 CC: PHILIP ROBERTS DO; SHAHNAZ SALAZAR MD ~ Course & Med Decision Making Course & Med Decision Making Pertinent Labs and Imaging studies reviewed. (See chart for details) The patient's EKG is negative for acute findings. Her troponin is negative. Her chest x-ray is negative for acute disease. Her labs are significant for creatinine 1.6. Review of her chart as a baseline of 1.2-1.3. Her alkaline phosphatase, bilirubin, AST, and ALT are also elevated. These have not been elevated in this way in the past. I have ordered an ultrasound of the right upper quadrant. The patient's HEART score is 5, mostly for age and risk factors. The ultrasound was limited due to bowel gas body habitus. They could not rule in or rule out cholecystitis. The patient's proBNP is greater than 12,000. Her previous is only 1200. I will admit her for CHF. Discussed the patient with Dr. Corbett and he has agreed to admit the patient for further management. Dragon Disclaimer Dragon Disclaimer This electronic medical record was generated, in whole or in part, using a voice recognition dictation system. Departure Departure: Impression: Primary Impression: CHF (congestive heart failure) Disposition: 09 ADMITTED INPATIENT Admitting Physician: Tika Corbett Condition: STABLE Referrals: SHAHNAZ SALAZAR MD (PCP) Problem Qualifiers Primary Impression: CHF (congestive heart failure) Heart failure type: systolic Heart failure chronicity: acute on chronic Qualified Codes: I50.23 - Acute on chronic systolic (congestive) heart failure PHILIP ROBERTS DO Jun 06, 2018 15:42
[2018-06-06 15:49] LABS: BASO % 0 % (0-3); EOS % 0 % (0-3); HEMATOCRIT 38.8 % (36.0-47.0); HEMOGLOBIN 13.2 g/dL (12.0-15.5); LYMPH # 0.8 x10^3/uL (1.0-4.8); LYMPH % 8 % (24-48); MEAN CORPUSCULAR HEMOGLOBIN 35 pg (25-35); MEAN CORPUSCULAR HGB CONC 34 g/dL (31-37); MEAN CORPUSCULAR VOLUME 102 fL (79-100); MONO # 1.1 x10^3/uL (0.0-1.1); MONO % 11 % (0-9); NEUT % 80 % (31-73); PLATELET COUNT 158 x10^3/uL (140-400); RED BLOOD COUNT 3.81 x10^6/uL (3.50-5.40); RED CELL DISTRIBUTION WIDTH 14.7 % (11.5-14.5)
[2018-06-06 16:01] LABS: ALBUMIN 3.5 g/dL (3.4-5.0); CALCIUM 9.5 mg/dL (8.5-10.1); CREATININE 1.6 mg/dL (0.6-1.0); GFR 30.8; POTASSIUM 4.8 mmol/L (3.5-5.1); TOTAL BILIRUBIN 1.6 mg/dL (0.2-1.0); TOTAL PROTEIN 7.1 g/dL (6.4-8.2)
--- NOTE | 2018-06-06 16:11 | RAD ---
EXAM: CHEST 1 VIEW History: Chest pain COMPARISON: 03/20/2018 TECHNIQUE: Single portable radiograph of the chest FINDINGS: Mild cardiomegaly. Left-sided cardiac pacer is unchanged. The costophrenic sulci are clear and well demarcated. IMPRESSION: No radiographic evidence of an acute cardiopulmonary process. Electronically signed by: Connor Sullivan MD (06/06/2018 4:08 PM) [id number]
--- NOTE | 2018-06-06 17:07 | RAD ---
EXAM: Abdomen sonogram. HISTORY: Pain and elevated liver function laboratory values. TECHNIQUE: Sonographic imaging of the abdomen was performed. COMPARISON: None. FINDINGS: The exam is limited due to body habitus and bowel gas. The liver is normal in size. No focal hepatic lesion is seen. The gallbladder wall is slightly thickened. The common bile duct is normal in caliber. The right kidney is unremarkable. The pancreas is obscured. There is echogenicity within the inferior vena cava which does not persist in the left lateral decubitus view, likely due to artifact or a valve. IMPRESSION: 1. Limited evaluation due to body habitus and bowel gas. The midline structures are predominantly obscured. 2. Slightly thickened gallbladder wall. This can be seen with intrinsic liver disease and slight gallbladder contraction. This is not clearly within limits to suggest cholecystitis. Electronically signed by: Yuko Gilliam MD (06/06/2018 5:04 PM) [id number]
[2018-06-06] MEDS ORDERED: FUROSEMIDE 40 MG/4 ML VIAL IVP ONE (17:30)
[2018-06-06 17:36] LABS: BACTERIA,URINE FEW /HPF (0-FEW); BILIRUBIN,URINE NEG (NEG); CLARITY,URINE HAZY; COLOR,URINE YELLOW; GLUCOSE,URINE NEG (NEG); HYALINE CASTS, URINE OCC /HPF; NITRITE,URINE NEG (NEG); SQUAMOUS EPITHELIAL CELL,UR OCC /LPF; UROBILINOGEN,URINE 0.2 mg/dL (0.2 mg/dL)
[2018-06-06] MEDS ORDERED: ONDANSETRON PF 4 MG/2 ML VIAL. IV PRN (17:45)
[2018-06-06 18:35] VITALS: BP 135/83
[2018-06-06 23:27] VITALS: BP 144/79
[2018-06-07] MEDS: ACETAMINOPHEN 500 MG TABLET PO SCH ×3 (01:24→20:20)
[2018-06-07 05:40] VITALS: BP 149/81
[2018-06-07 06:27] LABS: ALBUMIN 3.1 g/dL (3.4-5.0); ALBUMIN/GLOBULIN RATIO 0.9 (1.0-1.7); CALCIUM 9.2 mg/dL (8.5-10.1); CREATININE 1.7 mg/dL (0.6-1.0); GFR 28.7; POTASSIUM 4.1 mmol/L (3.5-5.1); TOTAL BILIRUBIN 1.4 mg/dL (0.2-1.0); TOTAL PROTEIN 6.6 g/dL (6.4-8.2)
[2018-06-07] MEDS: PANTOPRAZOLE 40 MG TABLET. PO SCH (08:08)
[2018-06-07 10:22] VITALS: BP 150/77
[2018-06-07] MEDS ORDERED: NITROGLYCERIN SUBLINGUAL 0.4 MG BOTTLE OF 25. SL PRN (12:00)
[2018-06-07] MEDS ORDERED: LOPERAMIDE 2 MG CAPSULE PO PRN (12:15)
--- NOTE | 2018-06-07 12:17 | PDOC2 ---
CONSULT Date of Admission DATE: 06/07/18 TIME: 12:16 Reason for Consult: Chest pain Referring Physician: Dr. Corbett Chief Complaint Chest pain Source: Chart review, Patient History of Present Illness 83-year-old female with history of coronary artery disease s/p CABG, permanent pacemaker implantation who usually follows up with [facility] cardiology apparently started feeling sick with mild shortness of breath and retrosternal chest discomfort after she received a steroid injection for back pain on Wednesday. She denied any orthopnea/PND, palpitations or syncope. Cardiovascular: CAD, HTN, hyperipidemia, Other (permanent pacemaker implantation) Past Surgical History: Appendectomy, CABG, Tonsillectomy, Hysterectomy, Pacemaker Family History Coronary artery disease, hypertension Social History Patient quit smoking several years ago and denied any alcohol or drug abuse Current Medications Current Medications Furosemide (Lasix) 40 mg 1X ONCE IVP Last administered on 06/06/18at 17:38; Start 06/06/18 at 17:30; Stop 06/06/18 at 17:31; Status DC Ondansetron HCl (Zofran) 4 mg PRN Q4HRS PRN IV NAUSEA/VOMITING; Start 06/06/18 at 17:45; Stop 06/07/18 at 17:44 Acetaminophen (Tylenol) 1,000 mg BID PO Last administered on 06/07/18at 08:08; Start 06/07/18 at 01:30 Pantoprazole Sodium (Protonix) 40 mg DAILYAC PO Last administered on 06/07/18at 08:08; Start 06/07/18 at 08:00 Isosorbide Mononitrate (Imdur) 60 mg DAILY PO ; Start 06/08/18 at 09:00 Metoprolol Succinate (Toprol Xl) 50 mg QHS PO ; Start 06/07/18 at 21:00 Nitroglycerin (Nitrostat) 0.4 mg PRN Q5MIN PRN SL chest pain; Start 06/07/18 at 12:00 Fish Oil (Fish Oil) 2,000 mg DAILY PO ; Start 06/08/18 at 09:00 Potassium Chloride (Klor-Con) 10 meq BID PO ; Start 06/07/18 at 21:00; Status UNV Aspirin (Children'S Aspirin) 81 mg DAILYWBKFT PO ; Start 06/08/18 at 08:00 Brimonidine Tartrate (Alphagan) 1 drop DAILY OU ; Start 06/08/18 at 09:00 Vitamin D (Vitamin D3) 2,000 unit BID PO ; Start 06/07/18 at 21:00 Dorzolamide HCl (Trusopt) 1 drop BID OU ; Start 06/07/18 at 21:00 Famotidine (Pepcid) 20 mg QHS PO ; Start 06/07/18 at 21:00 Furosemide (Lasix) 40 mg DAILY PO ; Start 06/08/18 at 09:00 Latanoprost (Xalatan) 1 drop QHS OU ; Start 06/07/18 at 21:00 Loperamide HCl (Imodium) 2 mg PRN Q4HRS PRN PO DIARRHEA; Start 06/07/18 at 12:15 Niacin (Slo-Niacin) 1,000 mg QHS PO ; Start 06/07/18 at 21:00 Atorvastatin Calcium (Lipitor) 20 mg QHS PO ; Start 06/07/18 at 21:00 Active Scripts Active Isosorbide Mononitrate Er (Isosorbide Mononitrate) 30 Mg Tab.er.24h 60 Mg PO DAILY 90 Days Reported Livalo (Pitavastatin Calcium) 4 Mg Tablet 4 Mg PO DAILY NOT AVAILABLE IN THE HOSPITAL NEXT DOSE DUE: DATE: TOMORROW TIME: AM Latanoprost 2.5 Ml Drops 1 Drop EACHEYE QHS LAST DOSE GIVEN: DATE: YESTERDAY TIME: AT BEDTIME NEXT DOSE DUE: DATE: TONIGHT TIME: AT BEDTIME Famotidine 40 Mg Tablet 1 Tab PO HS LAST DOSE GIVEN: DATE: YESTERDAY TIME: AT BEDTIME NEXT DOSE DUE: DATE: TONIGHT TIME: AT BEDTIME Trusopt (Dorzolamide Hcl) 10 Ml Drops 1 Drop OP BID LAST DOSE GIVEN: DATE: TODAY TIME: AM NEXT DOSE DUE: DATE: TODAY TIME: PM Vitamin D3 (Cholecalciferol (Vitamin D3)) 2,000 Unit Capsule 2,000 Unit PO BID LAST DOSE GIVEN: DATE: TODAY TIME: AM NEXT DOSE DUE: DATE: TODAY TIME: PM Celebrex (Celecoxib) 200 Mg Capsule 1 Cap PO DAILY LAST DOSE GIVEN: DATE:TODAY TIME: AM NEXT DOSE DUE: DATE: TOMORROW TIME: AM Imodium Multi-Symptom Rel Cplt (Loperamide Hcl/Simethicone) 1 Each Tablet 1 Each PO Q4HRS PRN NOT GIVEN TODAY NEXT DOSE DUE: DATE: TODAY TIME: IF AND WHEN NEEDED Potassium Chloride 10 Meq Tab.er.prt 10 Meq PO BID LAST DOSE GIVEN: DATE: TIME: AM NEXT DOSE DUE: DATE: TODAY TIME: PM Protonix (Pantoprazole Sodium) 40 Mg Tablet.dr 40 Mg PO DAILY LAST DOSE GIVEN: DATE: TIME: BEFORE BREAKFAST NEXT DOSE DUE: DATE: TOMORROW TIME: BEFORE BREAKFAST Pv Fish Oil 1,000 Mg Softgel ([place]-3 Fatty Acids/Vitamin E) 1,000 Mg Capsule 2,000 Mg PO DAILY LAST DOSE GIVEN: DATE: TODAY TIME: AM NEXT DOSE DUE: DATE: TOMORR TIME: AM Nitrostat (Nitroglycerin) 0.4 Mg Tab.subl 0.4 Mg SL Q5MIN X3 DOSES PRN NOT GIVEN TODAY NEXT DOSE DUE: DATE: TIME: IF AND WHEN NEEDED Niaspan (Niacin) 1,000 Mg Tab.er.24h 1,000 Mg PO HS last dose YESTERDAY PM next dose TONIGHT Toprol Xl (Metoprolol Succinate) 25 Mg Tab.er.24h 50 Mg PO HS LAST DOSE GIVEN: DATE: YESTER TIME: PM NEXT DOSE DUE: DATE: TIME: Lasix (Furosemide) 40 Mg Tablet 40 Mg PO DAILY LAST DOSE GIVEN: DATE: TIME: AM NEXT DOSE DUE: DATE: TOMORR TIME: AM Alphagan P (Brimonidine Tartrate) 5 Ml Drops 5 Ml OP DAILY LAST DOSE GIVEN: DATE: TIME: AM NEXT DOSE DUE: DATE: TOMORROW TIME: AM Aspir 81 (Aspirin) 81 Mg Tablet.dr 81 Mg PO DAILY LAST DOSE GIVEN: DATE: TODAY TIME: AM NEXT DOSE DUE: DATE: TOMORROW TIME: AM Acetaminophen 500 Mg Tablet 1,000 Mg PO BID LAST DOSE GIVEN: DATE: TIME: AM NEXT DOSE DUE: DATE: TODAY TIME: AFTERNOON IF NEEDED Allergies: Coded Allergies: latex (Verified Allergy, Severe, Rash, 06/06/18) Opgxzmi-Pxi-Owj Reductase Inhibitor (Unverified Allergy, Intermediate, muscle pain, 06/06/18) adhesive (Unverified Allergy, Intermediate, RASH, 06/06/18) bacitracin (Unverified Allergy, Intermediate, rash, 06/06/18) ezetimibe (Unverified Allergy, Intermediate, muscle pain, 06/06/18) neomycin (Unverified Allergy, Intermediate, rash, 06/06/18) polymyxin B (Unverified Allergy, Intermediate, rash, 03/20/18) propoxyphene (Unverified Allergy, Intermediate, HALLUCINATIONS, 03/20/18) PSYCHOLOGICAL ROS: No: Hallucinations Eyes: No: Loss of vision HEENT: No: Epistaxis Respiratory: YES: Shortness of breath; No: Hemoptysis Cardiovascular: yes: Chest Pain Gastrointestinal: No: Vomiting, Diarrhea Genitourinary: No: Henaturia Neurological: No: Seizures Skin: No: Rash General: Alert, Oriented X3 HEENT: Atraumatic Lungs: Clear to auscultation Heart: Regular rate Abdomen: Soft, No tenderness Extremities: Other (trace) Neuro: Normal speech Psych/Mental Status: Mental status NL VITALS Vital Signs Date Time Temp Pulse Resp B/P (MAP) Pulse Ox O2 Delivery O2 Flow Rate FiO2 06/07/18 10:22 97.6 73 20 150/77 (101) 98 Room Air Labs Laboratory Tests Test 06/06/18 15:33 06/06/18 15:40 06/06/18 17:13 06/07/18 05:34 White Blood Count 10.0 x10^3/uL (4.0-11.0) Red Blood Count 3.81 x10^6/uL (3.50-5.40) Hemoglobin 13.2 g/dL (12.0-15.5) Hematocrit 38.8 % (36.0-47.0) Mean Corpuscular Volume 102 fL (79-100) Mean Corpuscular Hemoglobin 35 pg (25-35) Mean Corpuscular Hemoglobin Concent 34 g/dL (31-37) Red Cell Distribution Width 14.7 % (11.5-14.5) Platelet Count 158 x10^3/uL (140-400) Neutrophils (%) (Auto) 80 % (31-73) Lymphocytes (%) (Auto) 8 % (24-48) Monocytes (%) (Auto) 11 % (0-9) Eosinophils (%) (Auto) 0 % (0-3) Basophils (%) (Auto) 0 % (0-3) Neutrophils # (Auto) 8.0 x10^3uL (1.8-7.7) Lymphocytes # (Auto) 0.8 x10^3/uL (1.0-4.8) Monocytes # (Auto) 1.1 x10^3/uL (0.0-1.1) Eosinophils # (Auto) 0.0 x10^3/uL (0.0-0.7) Basophils # (Auto) 0.0 x10^3/uL (0.0-0.2) Sodium Level 140 mmol/L (136-145) 139 mmol/L (136-145) Potassium Level 4.8 mmol/L (3.5-5.1) 4.1 mmol/L (3.5-5.1) Chloride Level 106 mmol/L (98-107) 105 mmol/L (98-107) Carbon Dioxide Level 25 mmol/L (21-32) 21 mmol/L (21-32) Anion Gap 9 (6-14) 13 (6-14) Blood Urea Nitrogen 49 mg/dL (7-20) 53 mg/dL (7-20) Creatinine 1.6 mg/dL (0.6-1.0) 1.7 mg/dL (0.6-1.0) Estimated GFR (Cockcroft-Gault) 30.8 28.7 BUN/Creatinine Ratio 31 (6-20) 31 (6-20) Glucose Level 93 mg/dL (70-99) 105 mg/dL (70-99) Calcium Level 9.5 mg/dL (8.5-10.1) 9.2 mg/dL (8.5-10.1) Total Bilirubin 1.6 mg/dL (0.2-1.0) 1.4 mg/dL (0.2-1.0) Aspartate Amino Transf (AST/SGOT) 58 U/L (15-37) 45 U/L (15-37) Alanine Aminotransferase (ALT/SGPT) 93 U/L (14-59) 79 U/L (14-59) Alkaline Phosphatase 145 U/L (46-116) 131 U/L (46-116) Troponin I Quantitative 0.024 ng/mL (0-0.055) Total Protein 7.1 g/dL (6.4-8.2) 6.6 g/dL (6.4-8.2) Albumin 3.5 g/dL (3.4-5.0) 3.1 g/dL (3.4-5.0) Albumin/Globulin Ratio 1.0 (1.0-1.7) 0.9 (1.0-1.7) HE-Cez-T-Type Natriuretic Peptide 65269 pg/mL (0-449) Urine Collection Type Unknown Urine Color Yellow Urine Clarity Hazy Urine pH 6.0 Urine Specific [place] 1.015 Urine Protein 30 mg/dl (NEG-TRACE) Urine Glucose (UA) Neg mg/dL (NEG) Urine Ketones (Stick) Neg mg/dL (NEG) Urine Blood Trace (NEG) Urine Nitrite Neg (NEG) Urine Bilirubin Neg (NEG) Urine Urobilinogen Dipstick 0.2 mg/dL (0.2 mg/dL) Urine Leukocyte Esterase Trace (NEG) Urine RBC 1-2 /HPF (0-2) Urine WBC 1-4 /HPF (0-4) Urine Squamous Epithelial Cells Occ /LPF Urine Bacteria Few /HPF (0-FEW) Urine Hyaline Casts Occ /HPF Assessment/Plan 1. Chest pain with atypical features in a patient with coronary artery disease s/p CABG in 2016. Troponin level slightly elevated but EKG without acute changes. Cardiac catheterization in April 2016 did not show any lesions needing intervention. Recent 2-D echo in March 2018 showed LVEF 50-55%. 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 2. Mild acute on chronic diastolic heart failure: Improved with Lasix she received in ED. Continue current medical regimen. 3. SSS s/p PPM implantation. Patient stated that this was recently interrogated and found to be functioning well. 4. Hypertension: Blood pressure slightly elevated. Resume home antihypertensives and titrate for better control. 5. Hyperlipidemia: Continue statin therapy Thank you for your consultation PABLO STEPHENS MD Jun 07, 2018 12:17
--- NOTE | 2018-06-07 12:46 | PREOP HP ---
DATE OF SERVICE: 06/06/2018 HISTORY OF PRESENT ILLNESS: The patient is an 83-year-old female patient, who came to the Emergency Room, complaining of chest pain, described as intermittent pressure. She has started after she has what seems to be left sacroiliac injection at the pain management clinic in [facility] last Wednesday and then on Wednesday morning, she started having these episodes. Her first episode of pain was later that night after the injection, she is still having some back discomfort, but chest pain is worse than that. The episodes lasted several minutes and had been getting shorter. She has an extensive cardiac history and thought that she should get things checked out just in case. She denied any chills, rigors, or fever. Denied any nausea or vomiting. Denied any diaphoresis or shortness of breath. She was evaluated in the Emergency Room and was found to have slightly elevated troponin 0.024; however, her liver enzymes as well as total bilirubin were elevated and was admitted for further evaluation and treatment. She did have an abdominal ultrasound that was apparently inconclusive as the gallbladder wall slightly thickened; however, the common bile duct is normal in caliber. This finding can be seen with intrinsic liver disease and slight gallbladder contraction and was admitted to do 2 more sets of cardiac enzyme and also to consult the Cardiology team as well as perhaps arrange for hepatobiliary scan to elucidate this finding further. PAST MEDICAL HISTORY: Significant for coronary artery disease, status post PTCA in October 2009, coronary artery bypass graft in 2016, hypertension, hyperlipidemia, followed at by Dr. Santacruz. She is known to have congestive heart failure, osteoarthritis. She also underwent left heart catheterization in ____, those results are not available. PAST SURGICAL HISTORY: Significant for PTCA with stent deployment, coronary artery bypass graft, pacemaker placement, right total knee arthroplasty, bilateral cataract extraction, tonsillectomy, appendectomy, total abdominal hysterectomy and back surgery. ALLERGIES: She is ALLERGIC TO STATINS; however, she has been on Livalo without any problems and that cannot be substituted. SHE HAS ALSO PROBLEMS WITH ADHESIVE TAPE, BACITRACIN, ZETIA, LATEX, NEOMYCIN, POLYMYXIN AND DARVON, WHICH OF COURSE HAS BEEN DISCONTINUED FROM THE US FORMULARY. FAMILY HISTORY: She has 1 older brother, who has heart disease and pacemaker. Father at age of 69 because of lung cancer. Mother of myocardial infarction. SOCIAL HISTORY: The patient lives at home with her , who apparently has some mild dementia. She has also a son, who obviously take care of both of his parents. She is an ex-smoker, quit more than 50 years ago. She denied any alcohol or drug abuse. REVIEW OF SYSTEMS: As per history of present illness. PHYSICAL EXAMINATION: GENERAL: On arrival to the Emergency Room, the patient looked well and was clearly in no apparent respiratory distress. There was no pallor, jaundice, cyanosis, or thyromegaly. No jugular venous distension. No lower limb edema. VITAL SIGNS: Her heart rate was 72, blood pressure 143/83, temperature was 97.8, respiratory rate was 22 and oxygen saturation was 99% on room air. HEAD, EYES, EARS, NOSE AND THROAT: Showed normocephalic, atraumatic. NECK: Supple. HEART: Showed normal first and second heart sounds with no gallop, rub or murmur. CHEST: Clear to auscultation. No crepitation or rhonchi. ABDOMEN: Distended, soft with tenderness mostly in the right upper quadrant. NEUROLOGICAL: She was awake, alert. All her cranial nerves are intact. EXTREMITIES: She moves extremities without difficulty. She ambulates with a walker. LABORATORY DATA: Her lab work on admission showed her white cell count to be 10,000, hemoglobin 13, hematocrit 39, MCV 102 and platelet count of 158,000 with normal manual differential. Her chemistry showed a serum sodium 140, potassium 4.8, chloride 106, bicarbonate 25, anion gap of 9, BUN 49, creatinine 1.6, estimated GFR was 31 mL per minute. Her glucose was 93, calcium was 9.5. Total bilirubin, AST, ALT, alkaline phosphatase are all elevated. Her first troponin is 0.024. Total protein was 7.1, albumin was 3.5. Her beta natriuretic peptide was 12,116. Urinalysis was essentially unremarkable. The urine was negative for nitrite as well as trace leukocyte esterase, 1-2 rbc's, 1-4 wbc's, very few bacteria. Her chest x-ray showed that the patient has mild cardiomegaly, left-sided cardiac pacer is unchanged. The costophrenic sulci are clear and well demarcated. Abdominal ultrasound showed that there is limited evaluation due to body habitus and bowel gas. The midline structures are predominantly obscured. The patient has slightly thickened gallbladder wall. This can be seen with intrinsic liver disease and was slightly gallbladder contraction, this is not clearly within limits to suggest cholecystitis. ASSESSMENT AND PLAN: The patient was admitted and continued on her medication. She has received one dose of IV Lasix and will obviously resume all her home medication and elucidate the abnormal liver function tests further. We will do 2 more sets of cardiac enzyme and we would consult the cardiology team. DORINDA MEJIA MD DR: SHEILA/lee JOB#: [id number] / [id number]
[2018-06-07 14:49] VITALS: BP 152/81
[2018-06-07] MEDS ORDERED: SINCALIDE 1.81 MCG in IV NORMAL SALINE 50ML 30 ML IV ONE (17:30)
[2018-06-07] MEDS: POTASSIUM CHLORIDE 10 MEQ TABLET.ER. PO SCH (18:28)
[2018-06-07 18:43] VITALS: BP 147/82
[2018-06-07] MEDS: CHOLECALCIFEROL (VITAMIN D3) 1,000 UNIT TABLET PO SCH (20:20)
[2018-06-07] MEDS: DORZOLAMIDE 2% OPHTH SOLUTION 10ML BOTTLE. OU SCH (20:20)
[2018-06-07] MEDS ORDERED: METOPROLOL SUCC 24HR ER 50 MG TAB.ER.24H. PO SCH (21:00)
[2018-06-07] MEDS ORDERED: LATANOPROST 0.005% OPHTH SOLUTION 2.5ML BOTTLE. OU SCH (21:00)
[2018-06-07] MEDS ORDERED: FAMOTIDINE 20 MG TABLET PO SCH (21:00)
[2018-06-07] MEDS ORDERED: ATORVASTATIN CALCIUM 20 MG TABLET PO SCH (21:00)
[2018-06-07] MEDS ORDERED: NIACIN ER 500 MG TABLET.ER PO SCH (21:00)
[2018-06-07 23:01] VITALS: BP 154/87
--- NOTE | 2018-06-08 03:03 | RAD ---
Indication abdominal pain for 2 days. TECHNIQUE: Nuclear medicine VQ scan with 5.5 mCi of technetium 90 9M Choletec. 1.81 mcg of cholecystokinin was injected for evaluation of ejection fraction. COMPARISON: None FINDINGS: Gallbladder is confidently visualized at 15 minutes and continues to fill in a retrograde fashion. Ejection fraction of 90.2 percent. IMPRESSION: No scintigraphic evidence of cystic duct obstruction. Electronically signed by: Sidney Olivera DO (06/08/2018 2:59 AM) [email or web address]
[2018-06-08 05:55] VITALS: BP 133/74
[2018-06-08 06:27] LABS: HEMATOCRIT 36.3 % (36.0-47.0); HEMOGLOBIN 12.3 g/dL (12.0-15.5); RED BLOOD COUNT 3.54 x10^6/uL (3.50-5.40); RED CELL DISTRIBUTION WIDTH 14.3 % (11.5-14.5); WHITE BLOOD COUNT 8.9 x10^3/uL (4.0-11.0)
[2018-06-08 06:44] LABS: ALBUMIN/GLOBULIN RATIO 0.8 (1.0-1.7); CALCIUM 8.9 mg/dL (8.5-10.1); CREATININE 1.4 mg/dL (0.6-1.0); GFR 35.9; POTASSIUM 4.3 mmol/L (3.5-5.1); TOTAL BILIRUBIN 1.4 mg/dL (0.2-1.0); TOTAL PROTEIN 6.7 g/dL (6.4-8.2)
[2018-06-08] MEDS ORDERED: ASPIRIN 81 MG TAB.CHEW PO SCH (08:00)
[2018-06-08] MEDS ORDERED: OMEGA-3 FATTY ACIDS/FISH OIL 1,000 MG CAPSULE. PO SCH (09:00)
[2018-06-08] MEDS ORDERED: BRIMONIDINE 0.2% OPHTH SOLUTION 5ML BOTTLE. OU SCH (09:00)
[2018-06-08] MEDS ORDERED: FUROSEMIDE 40 MG TABLET PO SCH (09:00)
[2018-06-08] MEDS: DORZOLAMIDE 2% OPHTH SOLUTION 10ML BOTTLE. OU SCH (09:00)
[2018-06-08] MEDS ORDERED: ISOSORBIDE MONONITRATE ER 30 MG TAB.ER.24H PO SCH (09:00)
[2018-06-08] MEDS: POTASSIUM CHLORIDE 10 MEQ TABLET.ER. PO SCH (10:03)
[2018-06-08] MEDS: ACETAMINOPHEN 500 MG TABLET PO SCH (10:04)
[2018-06-08] MEDS: PANTOPRAZOLE 40 MG TABLET. PO SCH (10:04)
[2018-06-08] MEDS: CHOLECALCIFEROL (VITAMIN D3) 1,000 UNIT TABLET PO SCH (10:04)
[2018-06-08 11:00] VITALS: BP 126/78
--- NOTE | 2018-06-08 11:18 | PDOC ---
PROGRESS NOTES Assessment 1. Chest pain with atypical features in a patient with coronary artery disease s/p CABG in 2016. mild trop elevation, No acute EKG changes. Cardiac catheterization in April 2016 did not show any lesions needing intervention. Recent 2-D echo in March 2018 showed LVEF 50-55%. Currently pain free. She will follow up with primary knitted cloth examiner as an outpatient for further ischemic evaluation. 2. Mild acute on chronic diastolic heart failure: Improved after Lasix, currently compensated. 3. SSS s/p PPM implantation. recently interrogated and found to be functioning well per patient report 4. Hypertension: pressure control improved on home medications 5. Hyperlipidemia: Continue statin therapy, lipid panel pending Subjective no chest pain, no dyspnea, no palpitations. c/o lower back pain all night, i mproved now Objective Vital Signs Date Time Temp Pulse Resp B/P (MAP) Pulse Ox O2 Delivery O2 Flow Rate FiO2 06/08/18 10:53 Room Air 06/08/18 10:03 74 133/74 06/08/18 05:55 97.5 20 96 Intake and Output 06/08/18 07:00 Intake Total 1070 ml Output Total 375 ml Balance 695 ml Intake Oral 1070 ml Output Urine Total 375 ml # Voids 2 # Bowel Movements 1 Physical Exam gen: awake, alert, NAD HEENT: no JVD CV : RRR, no gallops, clicks or rubs Lungs: CTA ext: trace edema abd: soft, non tender, bowel sounds present. Review of Relevant I have reviewed the following items amy (where applicable) has been applied. Labs Laboratory Tests Test 06/06/18 15:33 06/06/18 15:40 06/06/18 17:13 06/07/18 05:34 White Blood Count 10.0 x10^3/uL (4.0-11.0) Red Blood Count 3.81 x10^6/uL (3.50-5.40) Hemoglobin 13.2 g/dL (12.0-15.5) Hematocrit 38.8 % (36.0-47.0) Mean Corpuscular Volume 102 fL (79-100) Mean Corpuscular Hemoglobin 35 pg (25-35) Mean Corpuscular Hemoglobin Concent 34 g/dL (31-37) Red Cell Distribution Width 14.7 % (11.5-14.5) Platelet Count 158 x10^3/uL (140-400) Neutrophils (%) (Auto) 80 % (31-73) Lymphocytes (%) (Auto) 8 % (24-48) Monocytes (%) (Auto) 11 % (0-9) Eosinophils (%) (Auto) 0 % (0-3) Basophils (%) (Auto) 0 % (0-3) Neutrophils # (Auto) 8.0 x10^3uL (1.8-7.7) Lymphocytes # (Auto) 0.8 x10^3/uL (1.0-4.8) Monocytes # (Auto) 1.1 x10^3/uL (0.0-1.1) Eosinophils # (Auto) 0.0 x10^3/uL (0.0-0.7) Basophils # (Auto) 0.0 x10^3/uL (0.0-0.2) Sodium Level 140 mmol/L (136-145) 139 mmol/L (136-145) Potassium Level 4.8 mmol/L (3.5-5.1) 4.1 mmol/L (3.5-5.1) Chloride Level 106 mmol/L (98-107) 105 mmol/L (98-107) Carbon Dioxide Level 25 mmol/L (21-32) 21 mmol/L (21-32) Anion Gap 9 (6-14) 13 (6-14) Blood Urea Nitrogen 49 mg/dL (7-20) 53 mg/dL (7-20) Creatinine 1.6 mg/dL (0.6-1.0) 1.7 mg/dL (0.6-1.0) Estimated GFR (Cockcroft-Gault) 30.8 28.7 BUN/Creatinine Ratio 31 (6-20) 31 (6-20) Glucose Level 93 mg/dL (70-99) 105 mg/dL (70-99) Calcium Level 9.5 mg/dL (8.5-10.1) 9.2 mg/dL (8.5-10.1) Total Bilirubin 1.6 mg/dL (0.2-1.0) 1.4 mg/dL (0.2-1.0) Aspartate Amino Transf (AST/SGOT) 58 U/L (15-37) 45 U/L (15-37) Alanine Aminotransferase (ALT/SGPT) 93 U/L (14-59) 79 U/L (14-59) Alkaline Phosphatase 145 U/L (46-116) 131 U/L (46-116) Troponin I Quantitative 0.024 ng/mL (0-0.055) 0.040 ng/mL (0-0.055) Total Protein 7.1 g/dL (6.4-8.2) 6.6 g/dL (6.4-8.2) Albumin 3.5 g/dL (3.4-5.0) 3.1 g/dL (3.4-5.0) Albumin/Globulin Ratio 1.0 (1.0-1.7) 0.9 (1.0-1.7) ER-Atp-M-Type Natriuretic Peptide 17020 pg/mL (0-449) Urine Collection Type Unknown Urine Color Yellow Urine Clarity Hazy Urine pH 6.0 Urine Specific [place] 1.015 Urine Protein 30 mg/dl (NEG-TRACE) Urine Glucose (UA) Neg mg/dL (NEG) Urine Ketones (Stick) Neg mg/dL (NEG) Urine Blood Trace (NEG) Urine Nitrite Neg (NEG) Urine Bilirubin Neg (NEG) Urine Urobilinogen Dipstick 0.2 mg/dL (0.2 mg/dL) Urine Leukocyte Esterase Trace (NEG) Urine RBC 1-2 /HPF (0-2) Urine WBC 1-4 /HPF (0-4) Urine Squamous Epithelial Cells Occ /LPF Urine Bacteria Few /HPF (0-FEW) Urine Hyaline Casts Occ /HPF Lipase 107 U/L (73-393) Test 06/08/18 06:03 White Blood Count 8.9 x10^3/uL (4.0-11.0) Red Blood Count 3.54 x10^6/uL (3.50-5.40) Hemoglobin 12.3 g/dL (12.0-15.5) Hematocrit 36.3 % (36.0-47.0) Mean Corpuscular Volume 102 fL (79-100) Mean Corpuscular Hemoglobin 35 pg (25-35) Mean Corpuscular Hemoglobin Concent 34 g/dL (31-37) Red Cell Distribution Width 14.3 % (11.5-14.5) Platelet Count 134 x10^3/uL (140-400) Sodium Level 139 mmol/L (136-145) Potassium Level 4.3 mmol/L (3.5-5.1) Chloride Level 105 mmol/L (98-107) Carbon Dioxide Level 24 mmol/L (21-32) Anion Gap 10 (6-14) Blood Urea Nitrogen 50 mg/dL (7-20) Creatinine 1.4 mg/dL (0.6-1.0) Estimated GFR (Cockcroft-Gault) 35.9 BUN/Creatinine Ratio 36 (6-20) Glucose Level 99 mg/dL (70-99) Calcium Level 8.9 mg/dL (8.5-10.1) Total Bilirubin 1.4 mg/dL (0.2-1.0) Aspartate Amino Transf (AST/SGOT) 66 U/L (15-37) Alanine Aminotransferase (ALT/SGPT) 92 U/L (14-59) Alkaline Phosphatase 164 U/L (46-116) Total Protein 6.7 g/dL (6.4-8.2) Albumin 3.0 g/dL (3.4-5.0) Albumin/Globulin Ratio 0.8 (1.0-1.7) Medications Current Medications Furosemide (Lasix) 40 mg 1X ONCE IVP Last administered on 06/06/18at 17:38; Start 06/06/18 at 17:30; Stop 06/06/18 at 17:31; Status DC Ondansetron HCl (Zofran) 4 mg PRN Q4HRS PRN IV NAUSEA/VOMITING; Start 06/06/18 at 17:45; Stop 06/07/18 at 17:44; Status DC Acetaminophen (Tylenol) 1,000 mg BID PO Last administered on 06/08/18 10:04; Start 06/07/18 at 01:30 Pantoprazole Sodium (Protonix) 40 mg DAILYAC PO Last administered on 06/08/18 10:04; Start 06/07/18 at 08:00 Isosorbide Mononitrate (Imdur) 60 mg DAILY PO Last administered on 06/08/18 10:03; Start 06/08/18 at 09:00 Metoprolol Succinate (Toprol Xl) 50 mg QHS PO Last administered on 06/07/18at 20:20; Start 06/07/18 at 21:00 Nitroglycerin (Nitrostat) 0.4 mg PRN Q5MIN PRN SL chest pain; Start 06/07/18 at 12:00 Fish Oil (Fish Oil) 2,000 mg DAILY PO Last administered on 06/08/18 10:04; Start 06/08/18 at 09:00 Potassium Chloride (Klor-Con) 10 meq BIDWMEALS PO Last administered on 06/08/18 10:03; Start 06/07/18 at 17:00 Aspirin (Children'S Aspirin) 81 mg DAILYWBKFT PO Last administered on 06/08/18 10:03; Start 06/08/18 at 08:00 Brimonidine Tartrate (Alphagan) 1 drop DAILY OU Last administered on 06/08/18 09:00; Start 06/08/18 at 09:00 Vitamin D (Vitamin D3) 2,000 unit BID PO Last administered on 06/08/18 10:04; Start 06/07/18 at 21:00 Dorzolamide HCl (Trusopt) 1 drop BID OU Last administered on 06/08/18 09:00; Start 06/07/18 at 21:00 Famotidine (Pepcid) 20 mg QHS PO Last administered on 06/07/18 20:20; Start 06/07/18 at 21:00 Furosemide (Lasix) 40 mg DAILY PO Last administered on 06/08/18 10:04; Start 06/08/18 at 09:00 Latanoprost (Xalatan) 1 drop QHS OU Last administered on 06/07/18 20:20; Start 06/07/18 at 21:00 Loperamide HCl (Imodium) 2 mg PRN Q4HRS PRN PO DIARRHEA; Start 06/07/18 at 12:15 Niacin (Slo-Niacin) 1,000 mg QHS PO Last administered on 06/07/18 20:20; Start 06/07/18 at 21:00 Atorvastatin Calcium (Lipitor) 20 mg QHS PO Last administered on 06/07/18 20:20; Start 06/07/18 at 21:00 Sincalide 1.81 mcg/Sodium Chloride 30 ml @ 120 mls/hr 1X ONCE IV Last administered on 06/07/18 18:23; Start 06/07/18 at 17:30; Stop 06/07/18 at 17:44; Status DC Active Scripts Active Isosorbide Mononitrate Er (Isosorbide Mononitrate) 30 Mg Tab.er.24h 60 Mg PO DAILY 90 Days Reported Livalo (Pitavastatin Calcium) 4 Mg Tablet 4 Mg PO DAILY NOT AVAILABLE IN THE HOSPITAL NEXT DOSE DUE: DATE: TOMORROW TIME: AM Latanoprost 2.5 Ml Drops 1 Drop EACHEYE QHS LAST DOSE GIVEN: DATE: YESTERDAY TIME: AT BEDTIME NEXT DOSE DUE: DATE: TONIGHT TIME: AT BEDTIME Famotidine 40 Mg Tablet 1 Tab PO HS LAST DOSE GIVEN: DATE: YESTERDAY TIME: AT BEDTIME NEXT DOSE DUE: DATE: TONIGHT TIME: AT BEDTIME Trusopt (Dorzolamide Hcl) 10 Ml Drops 1 Drop OP BID LAST DOSE GIVEN: DATE: TODAY TIME: AM NEXT DOSE DUE: DATE: TODAY TIME: PM Vitamin D3 (Cholecalciferol (Vitamin D3)) 2,000 Unit Capsule 2,000 Unit PO BID LAST DOSE GIVEN: DATE: TODAY TIME: AM NEXT DOSE DUE: DATE: TODAY TIME: PM Celebrex (Celecoxib) 200 Mg Capsule 1 Cap PO DAILY LAST DOSE GIVEN: DATE:TODAY TIME: AM NEXT DOSE DUE: DATE: TOMORROW TIME: AM Imodium Multi-Symptom Rel Cplt (Loperamide Hcl/Simethicone) 1 Each Tablet 1 Each PO Q4HRS PRN NOT GIVEN TODAY NEXT DOSE DUE: DATE: TODAY TIME: IF AND WHEN NEEDED Potassium Chloride 10 Meq Tab.er.prt 10 Meq PO BID LAST DOSE GIVEN: DATE: TODAY TIME: AM NEXT DOSE DUE: DATE: TODAY TIME: PM Protonix (Pantoprazole Sodium) 40 Mg Tablet.dr 40 Mg PO DAILY LAST DOSE GIVEN: DATE: TODAY TIME: BEFORE BREAKFAST NEXT DOSE DUE: DATE: TOMORROW TIME: BEFORE BREAKFAST Pv Fish Oil 1,000 Mg Softgel (Hortense-3 Fatty Acids/Vitamin E) 1,000 Mg Capsule 2,000 Mg PO DAILY LAST DOSE GIVEN: DATE: TODAY TIME: AM NEXT DOSE DUE: DATE: TOMORROW TIME: AM Nitrostat (Nitroglycerin) 0.4 Mg Tab.subl 0.4 Mg SL Q5MIN X3 DOSES PRN NOT GIVEN TODAY NEXT DOSE DUE: DATE: TODAY TIME: IF AND WHEN NEEDED Niaspan (Niacin) 1,000 Mg Tab.er.24h 1,000 Mg PO HS last dose YESTERDAY PM next dose TONIGHT Toprol Xl (Metoprolol Succinate) 25 Mg Tab.er.24h 50 Mg PO HS LAST DOSE GIVEN: DATE: YESTERDAY TIME: PM NEXT DOSE DUE: DATE: TONIGHT TIME: Lasix (Furosemide) 40 Mg Tablet 40 Mg PO DAILY LAST DOSE GIVEN: DATE: TODAY TIME: AM NEXT DOSE DUE: DATE: TOMORROW TIME: AM Alphagan P (Brimonidine Tartrate) 5 Ml Drops 5 Ml OP DAILY LAST DOSE GIVEN: DATE: TODAY TIME: AM NEXT DOSE DUE: DATE: TOMORROW TIME: AM Aspir 81 (Aspirin) 81 Mg Tablet.dr 81 Mg PO DAILY LAST DOSE GIVEN: DATE: TODAY TIME: AM NEXT DOSE DUE: DATE: TOMORROW TIME: AM Acetaminophen 500 Mg Tablet 1,000 Mg PO BID LAST DOSE GIVEN: DATE: TIME: AM NEXT DOSE DUE: DATE: TODAY TIME: AFTERNOON IF NEEDED Vitals/I & O Vital Sign - Last 24 Hours 06/07/18 06/07/18 06/07/18 06/07/18 14:49 18:43 19:40 20:20 Temp 98.1 98.3 Pulse 70 100 100 Resp 20 18 B/P (MAP) 152/81 (104) 147/82 (103) 147/82 Pulse Ox 99 99 O2 Delivery Room Air Room Air Room Air 06/07/18 06/08/18 06/08/18 06/08/18 23:01 05:55 10:03 10:53 Temp 98.1 97.5 Pulse 72 74 74 Resp 24 20 B/P (MAP) 154/87 (109) 133/74 (93) 133/74 Pulse Ox 97 96 O2 Delivery Room Air Room Air Room Air Intake and Output 06/07/18 06/07/18 06/08/18 15:00 23:00 07:00 Intake Total 480 ml 240 ml 350 ml Output Total 375 ml Balance 480 ml -135 ml 350 ml GUMARO HICKS APRN June 08, 2018 11:18
[2018-06-08 14:42] VITALS: BP 127/71
--- NOTE | 2018-06-08 23:03 | DS ---
DATE OF DISCHARGE: 06/08/2018 HISTORY OF PRESENT ILLNESS: The patient is an 83-year-old female patient, who was admitted with a complaint of chest pain, described as intermittent pressure, has started when she has what seems to be a left sacroiliac joint injection at the [facility] in [facility]. On Wednesday morning, she started having these episodes. The pain was not associated with any nausea, vomiting, no diaphoresis, no shortness of breath. She was evaluated in the Emergency Room and her first set of cardiac enzyme was 0.024. She was admitted to do 2 more sets of cardiac enzyme, to consult the cardiology team. She was seen in consultation by the barber stylist and basically her EKG was without any acute changes, although troponin was slightly elevated. She has had coronary artery disease, status post CABG in 2015. Her cardiac catheterization in 04/2016 did not show any lesions needing intervention and her most recent 2-dimensional echocardiogram in 03/2018 showed left ventricular ejection fraction of 50-55%. She was in mild acute on chronic diastolic congestive heart failure, had responded with Lasix and she did have some abnormal finding on her abdominal ultrasound given her abnormal liver enzymes. The ultrasound was inconclusive and as far as acute cholecystitis concerned and therefore we did hepatobiliary scan, which basically showed that the gallbladder is confidently visualized at 15 minutes and continues to fill in a retrograde fashion. The ejection fraction was 90% and therefore, there was no scintigraphic evidence of cystic duct obstruction. The patient generally felt much better today, has been up and about, has no further episode of chest pain, has walked with physical therapy with a walker and it was felt that the patient can be discharged safely home for an ischemic workup to be done at her primary barber stylist from [facility]. PHYSICAL EXAMINATION: GENERAL: When I examined her this afternoon, she looked pale, but no jaundice, cyanosis or thyromegaly. No jugular venous distention. No lower limb edema. VITAL SIGNS: Her heart rate was 70, blood pressure was 126/78, temperature was 97.5, respiratory rate was 18 and oxygen saturation was 97%. HEAD, EYES, EARS, NOSE AND THROAT: Showed normocephalic, atraumatic. NECK: Supple. HEART: Showed normal first and second heart sounds with no gallop, rub or murmur. CHEST: Clear to auscultation. No crepitation or rhonchi. ABDOMEN: Distended, soft, nontender. NEUROLOGIC: She is awake, alert, responding appropriately. All cranial nerves intact. She moves all extremities without difficulty. She ambulates with a walker. LABORATORY DATA: Her lab work this morning showed a serum sodium 139, potassium 4.3, chloride 105, bicarbonate 24, anion gap of 10, BUN 50, creatinine 1.4, estimated GFR was 36 mL per minute. Her glucose was 99, calcium was 8.9. Total bilirubin, AST, ALT, alkaline phosphatase were slightly elevated. Her total protein was 6.7, albumin 3, serum triglyceride was 69, total cholesterol 107, LDL cholesterol was 58, VLDL was 12, and HDL cholesterol was 36, and the ratio was 2. Her serum lipase was 107. Her white cell count was 8900, hemoglobin 12, hematocrit 36, MCV 102 and platelet count of 134,000. Urinalysis was unremarkable. DISCHARGE MEDICATIONS: The patient was discharged home to continue on all her medications including Tylenol 1000 mg twice a day for pain, aspirin 81 mg daily, brimonidine tartrate for Alphagan one drop to both eyes daily, Celebrex 200 mg daily, cholecalciferol 2000 International Units twice a day, dorzolamide for Trusopt 1 drop to both eyes twice a day, famotidine 40 mg at bedtime, furosemide 40 mg daily, isosorbide mononitrate 60 mg daily, latanoprost 1 drop to both eyes at bedtime, loperamide, simethicone 1 tablet p.o. every 4 hours as needed, metoprolol succinate 50 mg once a day, niacin for Niaspan 1000 mg at bedtime, nitroglycerin for Nitrostat 0.4 mg sublingually every 5 minutes x 3, omega-3 fatty acid 1 capsule 2000 mg once a day, Protonix 40 mg daily, Livalo 4 mg p.o. daily and potassium chloride 10 mEq twice a day. FINAL DISCHARGE DIAGNOSES: 1. Chest pain, atypical with no EKG finding. 2. Acute on chronic diastolic congestive heart failure, improved. 3. Hypertension, well controlled. 4. Hyperlipidemia. 5. Glaucoma. DORINDA MEJAI MD DR: SHEILA/lee JOB#: [id number] / [id number]
== END 2018-06-08 15:50 | disposition home or self-care (01) | DRG 291 ==
LOC: ER 15:13 → 1 SOUTH 17:44
PROVIDERS: ADMIT Internal Medicine; ATTEND Internal Medicine
DX: I11.0 Hypertensive heart disease with heart failure (principal); N17.0 Acute kidney failure with tubular necrosis; K81.0 Acute cholecystitis; I50.33 Acute on chronic diastolic (congestive) heart failure; E78.00 Pure hypercholesterolemia, unspecified; E78.5 Hyperlipidemia, unspecified; F03.90 Unspecified dementia, unspecified severity, without behavioral disturbance, psychotic disturbance, mood disturbance, and anxiety; H40.9 Unspecified glaucoma; I25.10 Atherosclerotic heart disease of native coronary artery without angina pectoris; K21.9 Gastro-esophageal reflux disease without esophagitis; I49.5 Sick sinus syndrome; Z96.651 Presence of right artificial knee joint; F41.9 Anxiety disorder, unspecified; M19.90 Unspecified osteoarthritis, unspecified site; Z80.1 Family history of malignant neoplasm of trachea, bronchus and lung; Z82.49 Family history of ischemic heart disease and other diseases of the circulatory system; Z90.710 Acquired absence of both cervix and uterus; Z87.891 Personal history of nicotine dependence; Z95.0 Presence of cardiac pacemaker; Z95.1 Presence of aortocoronary bypass graft; Z95.5 Presence of coronary angioplasty implant and graft; Z98.41 Cataract extraction status, right eye; Z98.42 Cataract extraction status, left eye; Z86.718 Personal history of other venous thrombosis and embolism; Z86.711 Personal history of pulmonary embolism; Z88.1 Allergy status to other antibiotic agents; Z88.8 Allergy status to other drugs, medicaments and biological substances
CPT/HCPCS: 36415; 71045; 76705; 78227; 80053; 80061; 81001; 83690; 83880; 84484; 85025; 85027; 87086; 93005; 96374; A9537; J1940; J2805; 99285-25

== ENCOUNTER 2018-06-23 14:43 | Inpatient (IN) | payer MEDICARE ==
[~2018-06-23] VITALS: Ht 165.1 cm; Wt 79.5 kg
[2018-06-23] MEDS ORDERED: HYDR-3165 PO ×2 (16:48→17:04)
[2018-06-23] MEDS ORDERED: RIVA15TA PO (16:48)
[2018-06-23] MEDS ORDERED: MAGN400T22 PO (16:48)
[2018-06-23] MEDS ORDERED: MENT118G TP (16:48)
[2018-06-23] MEDS ORDERED: ISOS120T4 PO (16:48)
[2018-06-23] MEDS ORDERED: AMIO200T4 PO (16:50)
[2018-06-23] MEDS ORDERED: NITROGLYCERIN SUBLINGUAL 0.4 MG BOTTLE OF 25. SL PRN (17:15)
[2018-06-23 17:27] VITALS: BP 129/78
[2018-06-23] MEDS ORDERED: METHYL SALICYLATE/MENTHOL TOPICAL OINTMENT 29GM TUBE. TP PRN (17:30)
[2018-06-23] MEDS ORDERED: LOPERAMIDE 2 MG CAPSULE PO PRN (17:30)
[2018-06-23] MEDS ORDERED: HYDROcodone/APAP 5/325MG 1 TAB TABLET PO PRN (17:30)
[2018-06-23 17:33] VITALS: BP 129/78
[2018-06-23] MEDS: RIVAROXABAN 15 MG TABLET. PO SCH (18:23)
[2018-06-23 19:15] VITALS: BP 118/59
[2018-06-23] MEDS: DORZOLAMIDE 2% OPHTH SOLUTION 10ML BOTTLE. OU SCH (21:21)
[2018-06-23] MEDS: ATORVASTATIN CALCIUM 20 MG TABLET PO SCH (21:21)
[2018-06-23] MEDS: BRIMONIDINE 0.2% OPHTH SOLUTION 5ML BOTTLE. OU SCH (21:21)
[2018-06-23] MEDS: LATANOPROST 0.005% OPHTH SOLUTION 2.5ML BOTTLE. OU SCH (21:21)
[2018-06-23] MEDS: FAMOTIDINE 20 MG TABLET PO SCH (21:22)
[2018-06-23] MEDS: MAGNESIUM OXIDE 400 MG TABLET PO SCH (21:22)
[2018-06-23] MEDS: CHOLECALCIFEROL (VITAMIN D3) 1,000 UNIT TABLET PO SCH (21:23)
[2018-06-23] MEDS: NIACIN ER 500 MG TABLET.ER PO SCH (21:23)
[2018-06-23] MEDS: ACETAMINOPHEN 500 MG TABLET PO SCH (21:23)
[2018-06-23] MEDS: AMIODARONE HCL 200 MG TABLET PO SCH (21:24)
[2018-06-24 05:38] VITALS: BP 147/91
[2018-06-24 06:06] LABS: BASO # 0.1 x10^3/uL (0.0-0.2); BASO % 1 % (0-3); EOS # 0.3 x10^3/uL (0.0-0.7); EOS % 4 % (0-3); HEMATOCRIT 38.1 % (36.0-47.0); HEMOGLOBIN 12.9 g/dL (12.0-15.5); LYMPH # 0.8 x10^3/uL (1.0-4.8); LYMPH % 11 % (24-48); MEAN CORPUSCULAR HEMOGLOBIN 34 pg (25-35); MEAN CORPUSCULAR HGB CONC 34 g/dL (31-37); MEAN CORPUSCULAR VOLUME 101 fL (79-100); MONO # 0.6 x10^3/uL (0.0-1.1); MONO % 9 % (0-9); NEUT # 5.2 x10^3uL (1.8-7.7); NEUT % 76 % (31-73); PLATELET COUNT 281 x10^3/uL (140-400); RED BLOOD COUNT 3.78 x10^6/uL (3.50-5.40); RED CELL DISTRIBUTION WIDTH 13.8 % (11.5-14.5); WHITE BLOOD COUNT 6.9 x10^3/uL (4.0-11.0)
[2018-06-24 06:15] LABS: ALBUMIN 2.7 g/dL (3.4-5.0); ALBUMIN/GLOBULIN RATIO 0.6 (1.0-1.7); CALCIUM 9.7 mg/dL (8.5-10.1); CREATININE 1.2 mg/dL (0.6-1.0); GFR 42.9; POTASSIUM 4.3 mmol/L (3.5-5.1); TOTAL BILIRUBIN 0.9 mg/dL (0.2-1.0); TOTAL PROTEIN 7.3 g/dL (6.4-8.2)
[2018-06-24] MEDS: POTASSIUM CHLORIDE 20 MEQ TABLET.ER. PO SCH (08:54)
[2018-06-24] MEDS: METOPROLOL SUCC 24HR ER 50 MG TAB.ER.24H. PO SCH (08:54)
[2018-06-24] MEDS: PANTOPRAZOLE 40 MG TABLET. PO SCH (08:54)
[2018-06-24] MEDS: OMEGA-3 FATTY ACIDS/FISH OIL 1,000 MG CAPSULE. PO SCH (08:54)
[2018-06-24] MEDS: CHOLECALCIFEROL (VITAMIN D3) 1,000 UNIT TABLET PO SCH ×2 (08:54→21:13)
[2018-06-24] MEDS: ACETAMINOPHEN 500 MG TABLET PO SCH ×2 (08:54→21:13)
[2018-06-24] MEDS: ASPIRIN 81 MG TAB.CHEW PO SCH (08:54)
[2018-06-24] MEDS: MAGNESIUM OXIDE 400 MG TABLET PO SCH ×2 (08:54→21:13)
[2018-06-24] MEDS: FUROSEMIDE 40 MG TABLET PO SCH (08:55)
[2018-06-24] MEDS: AMIODARONE HCL 200 MG TABLET PO SCH ×2 (08:56→21:14)
[2018-06-24] MEDS: ISOSORBIDE MONONITRATE ER 30 MG TAB.ER.24H PO SCH (08:56)
[2018-06-24] MEDS: DORZOLAMIDE 2% OPHTH SOLUTION 10ML BOTTLE. OU SCH ×2 (08:59→21:12)
[2018-06-24] MEDS: BRIMONIDINE 0.2% OPHTH SOLUTION 5ML BOTTLE. OU SCH ×2 (08:59→21:12)
--- NOTE | 2018-06-24 15:08 | HP ---
ADMIT DATE: 06/23/2018 HISTORY OF PRESENT ILLNESS: The patient is an 83-year-old female patient with a multitude of medical problems, was admitted to [facility] on 06/14/2018 with a complaint of having chest pressure with exertion. She ambulates short distances 10 feet, which is a new complaint over the last 2 weeks, at this time, she also developed orthopnea and weight gain. Baseline weight 180-185, has gotten as high as 209 pounds. She was hospitalized here recently and at that time, she was treated with IV antibiotic. She was basically treated with Lasix at 40 mg IV daily with strict intake and output and daily weight. Her EKG was paced rhythm; however, interrogation of her pacemaker revealed that she was in AFib and initial troponin was negative. BNP was just more than 1000. She was clinically volume overloaded with evidence of right-sided heart failure, unremarkable pulmonary exam, has lower extremity edema and abdominal swelling. She was found to have also hyperbilirubinemia and microcytic anemia. Her hyperbilirubinemia and microcytic anemia is felt to be secondary to congestive hepatopathy, although there was some question amy whether she is drinking alcohol more than she admits to. According to her, she has had what seemed to be transesophageal echocardiogram and cardioversion and her heart rate was slowed down. No cardiac catheterization apparently was done. She apparently had had a stress test done that was apparently unremarkable and showed no significant areas of myocardial ischemia. There is a mild persistent defect overlying the left ventricular apex, possibly due to soft tissue attenuation. Her left ventricular ejection fraction was 43% with global hypokinesis. She was treated with IV antibiotic with IV Lasix and attained her dry weight of about 185. She is in fact [id number] and was transferred back to a swing bed in [facility] to continue the process of rehabilitation. When I questioned her, she denied any chest pain, denied any shortness of breath, orthopnea or paroxysmal nocturnal dyspnea. Denied any cough, phlegm, or hemoptysis. PAST MEDICAL HISTORY: Significant for coronary artery disease, gastroesophageal reflux disease, heart block, hypertension, hyperlipidemia, pulmonary embolism, polymyalgia rheumatica, and uterine cancer. PAST SURGICAL HISTORY: Significant for adenoidectomy, tonsillectomy. She has hysterectomy, subtotal colectomy for diverticulitis, coronary artery bypass graft surgery, right total knee arthroplasty, and percutaneous coronary intervention. She also had back surgery, history of coronary stent placement, pacemaker placement, left heart catheterization and myocardial perfusion study. FAMILY HISTORY: Positive for coronary artery disease in her mother, cancer in her father, coronary artery disease in her brother. SOCIAL HISTORY: She is , lives with her and her son. She is a former smoker, used to smoke 5 cigarettes a day for 20 years, quit in 03/07/1966. She drinks alcohol socially. ALLERGIES: She is allergic to ADHESIVE TAPES, ALOE VERA, LATEX, DARVON, PROPOXYPHENE, NEOSPORIN, NEOMYCIN, BACITRACIN, POLYMYXIN, STATIN, HYDROXYMETHYLGLUTARYL COENZYME A REDUCTASE INHIBITORS and ZETIA. MEDICATIONS: She is currently on following medications: She is on rivaroxaban 15 mg daily, amiodarone 200 mg twice a day, pitavastatin calcium 4 mg p.o. daily, niacin 1000 mg extended release at bedtime, omega-3 fatty acid 2000 mg daily. She is on isosorbide mononitrate 120 mg daily, nitroglycerin 0.4 mg sublingually every 5 minutes x 3. She is on metoprolol succinate 50 mg daily. She is on aspirin 81 mg once a day, hydrocodone/APAP 5/325 one tablet every 6 hours for pain, rated 1-5 and 2 tablets for pain rated 6-10. She is on Tylenol 1000 mg twice a day, potassium chloride 20 mEq daily. She is on furosemide 40 mg p.o. daily. She is on Alphagan one drop to both eyes twice a day, dorzolamide or Trusopt 1 drop to both eyes twice a day, and latanoprost 1 drop to both eyes at bedtime. She is on magnesium oxide 400 mg twice a day, loperamide/simethicone 1 every 4 hours as needed, famotidine 40 mg at bedtime, Protonix 40 mg daily. She is on menthol for Biofreeze topically twice a day and cholecalciferol for vitamin D3 2000 international units twice a day. PHYSICAL EXAMINATION: GENERAL: When I examined her this morning, she was resting slightly propped up in bed, in no apparent distress. She was pale, but no jaundice, cyanosis, or thyromegaly. No jugular venous distension. No limb edema. VITAL SIGNS: Her heart rate was 69, blood pressure was 147/91, temperature was 97.7, respiratory rate was 20, and oxygen saturation was 98%. HEAD, EYES, EARS, NOSE, AND THROAT: Showed normocephalic, atraumatic. NECK: Supple. HEART: Showed normal first and second heart sounds with no gallop, rub, or murmur. CHEST: Clear to auscultation. No crepitation or rhonchi. ABDOMEN: Distended, soft, nontender. No guarding or rigidity. No organomegaly. All hernial orifices intact. Bowel sounds normal. NEUROLOGIC: She was awake, alert, responding appropriately. Cranial nerves intact. EXTREMITIES: She moves extremities without difficulty. She ambulates with a walker without difficulty. LABORATORY DATA: As of this morning showed a white cell count of 6900, hemoglobin 13, hematocrit 38, MCV 101, and platelet count of 181,000. Her serum sodium was 135, potassium 4.3, chloride 101, bicarbonate 27, anion gap of 7, BUN 33, creatinine 1.2, estimated GFR was 43 mL per minute. Her glucose was 102. Calcium was 9.7. Total bilirubin 0.9. AST and alkaline phosphatase slightly elevated. Her total protein was 7.3, albumin was 2.7. IMPRESSION AND PLAN: In summary, this is an 83-year-old female patient who was admitted on 06/14/2018 to [facility] with increasing shortness of breath on exertion. She also complained of chest pressure with exertion when she ambulates short distances, less than 10 feet. She has also had marked weight gain and orthopnea. Her weight has risen from, her dry weight of 180, 185, 209. She was found to be in atrial fibrillation with rapid ventricular response. She was found to have hyperbilirubinemia and there was some suspicion that she might be drinking more alcohol than she admits to, but her testing showed no evidence of any alcoholism. The patient was treated with IV Lasix and her Imdur apparently was increased and she has had a transesophageal echocardiogram with cardioversion. Her heart rate is now well controlled. My plan is to continue with all her current medications. Continue with physical and occupational therapy. DORINDA MEJIA MD DR: SHEILA/lee JOB#: [id number] / [id number]
[2018-06-24] MEDS: RIVAROXABAN 15 MG TABLET. PO SCH (17:37)
[2018-06-24 18:33] VITALS: BP 116/61
[2018-06-24] MEDS: LATANOPROST 0.005% OPHTH SOLUTION 2.5ML BOTTLE. OU SCH (21:12)
[2018-06-24] MEDS: NIACIN ER 500 MG TABLET.ER PO SCH (21:13)
[2018-06-24] MEDS: FAMOTIDINE 20 MG TABLET PO SCH (21:13)
[2018-06-24] MEDS: ATORVASTATIN CALCIUM 20 MG TABLET PO SCH (21:14)
[2018-06-25 05:39] VITALS: BP 134/83
[2018-06-25] MEDS: MAGNESIUM OXIDE 400 MG TABLET PO SCH ×2 (09:09→20:36)
[2018-06-25] MEDS: FUROSEMIDE 40 MG TABLET PO SCH (09:10)
[2018-06-25] MEDS: CHOLECALCIFEROL (VITAMIN D3) 1,000 UNIT TABLET PO SCH ×2 (09:10→20:36)
[2018-06-25] MEDS: POTASSIUM CHLORIDE 20 MEQ TABLET.ER. PO SCH (09:10)
[2018-06-25] MEDS: ISOSORBIDE MONONITRATE ER 30 MG TAB.ER.24H PO SCH (09:10)
[2018-06-25] MEDS: METOPROLOL SUCC 24HR ER 50 MG TAB.ER.24H. PO SCH (09:11)
[2018-06-25] MEDS: PANTOPRAZOLE 40 MG TABLET. PO SCH (09:11)
[2018-06-25] MEDS: ACETAMINOPHEN 500 MG TABLET PO SCH ×2 (09:11→20:36)
[2018-06-25] MEDS: OMEGA-3 FATTY ACIDS/FISH OIL 1,000 MG CAPSULE. PO SCH (09:12)
[2018-06-25] MEDS: AMIODARONE HCL 200 MG TABLET PO SCH ×2 (09:12→20:35)
[2018-06-25] MEDS: ASPIRIN 81 MG TAB.CHEW PO SCH (09:12)
[2018-06-25] MEDS: BRIMONIDINE 0.2% OPHTH SOLUTION 5ML BOTTLE. OU SCH ×2 (09:13→20:37)
[2018-06-25] MEDS: DORZOLAMIDE 2% OPHTH SOLUTION 10ML BOTTLE. OU SCH ×2 (09:13→20:37)
[2018-06-25] MEDS: HYDROcodone/APAP 5/325MG 1 TAB TABLET PO PRN (12:31)
[2018-06-25] MEDS: RIVAROXABAN 15 MG TABLET. PO SCH (18:16)
[2018-06-25 18:23] VITALS: BP 110/71
[2018-06-25] MEDS: NIACIN ER 500 MG TABLET.ER PO SCH (20:35)
[2018-06-25] MEDS: FAMOTIDINE 20 MG TABLET PO SCH (20:35)
[2018-06-25] MEDS: ATORVASTATIN CALCIUM 20 MG TABLET PO SCH (20:36)
[2018-06-25] MEDS: LATANOPROST 0.005% OPHTH SOLUTION 2.5ML BOTTLE. OU SCH (20:37)
[2018-06-26] VITALS (7 sets, daily range): BP systolic 124–159; BP diastolic 71–83
[2018-06-26] MEDS: PANTOPRAZOLE 40 MG TABLET. PO SCH (08:02)
[2018-06-26] MEDS: ASPIRIN 81 MG TAB.CHEW PO SCH (08:02)
[2018-06-26] MEDS: AMIODARONE HCL 200 MG TABLET PO SCH ×2 (08:02→20:24)
[2018-06-26] MEDS: POTASSIUM CHLORIDE 20 MEQ TABLET.ER. PO SCH (08:02)
[2018-06-26] MEDS: OMEGA-3 FATTY ACIDS/FISH OIL 1,000 MG CAPSULE. PO SCH (08:03)
[2018-06-26] MEDS: FUROSEMIDE 40 MG TABLET PO SCH (08:03)
[2018-06-26] MEDS: METOPROLOL SUCC 24HR ER 50 MG TAB.ER.24H. PO SCH (08:03)
[2018-06-26] MEDS: CHOLECALCIFEROL (VITAMIN D3) 1,000 UNIT TABLET PO SCH ×2 (08:03→20:22)
[2018-06-26] MEDS: MAGNESIUM OXIDE 400 MG TABLET PO SCH ×2 (08:03→21:00)
[2018-06-26] MEDS: ACETAMINOPHEN 500 MG TABLET PO SCH ×2 (08:03→20:22)
[2018-06-26] MEDS: ISOSORBIDE MONONITRATE ER 30 MG TAB.ER.24H PO SCH (08:04)
[2018-06-26] MEDS: BRIMONIDINE 0.2% OPHTH SOLUTION 5ML BOTTLE. OU SCH ×2 (08:30→20:25)
[2018-06-26] MEDS: DORZOLAMIDE 2% OPHTH SOLUTION 10ML BOTTLE. OU SCH ×2 (08:31→20:25)
--- NOTE | 2018-06-26 15:37 | EKG ---
[address] [address] Test Date: 2018-06-26 Test Time: 01:57:41 Pat Name: TREASURE CONTI Department: Room: 129 A Gender: F Soaker Helper: NICK : [id number] Requested By: DORINDA MEJIA Order Number: [id number] Reading MD: Mikel Sierra Measurements Intervals [place] Rate: 70 P: -90 NH: 202 QRS: 95 QRSD: 142 T: -67 QT: 442 QTc: 480 Interpretive Statements AV SEQUENTIAL PACED RHYTHM Electronically Signed On 07-15-2018 12:46:26 CDT by Mikel Sierra
[2018-06-26] MEDS: RIVAROXABAN 15 MG TABLET. PO SCH (18:26)
[2018-06-26] MEDS: ATORVASTATIN CALCIUM 20 MG TABLET PO SCH (20:22)
[2018-06-26] MEDS: FAMOTIDINE 20 MG TABLET PO SCH (20:23)
[2018-06-26] MEDS: NIACIN ER 500 MG TABLET.ER PO SCH (20:24)
[2018-06-26] MEDS: LATANOPROST 0.005% OPHTH SOLUTION 2.5ML BOTTLE. OU SCH (20:25)
[2018-06-27 06:15] LABS: CALCIUM 9.2 mg/dL (8.5-10.1); CREATININE 1.1 mg/dL (0.6-1.0); GFR 47.4; POTASSIUM 4.1 mmol/L (3.5-5.1)
[2018-06-27] MEDS: ACETAMINOPHEN 500 MG TABLET PO SCH ×2 (07:31→20:12)
[2018-06-27] MEDS: MAGNESIUM OXIDE 400 MG TABLET PO SCH ×2 (07:31→20:13)
[2018-06-27 07:32] VITALS: BP 129/50
[2018-06-27] MEDS: AMIODARONE HCL 200 MG TABLET PO SCH ×2 (07:32→20:12)
[2018-06-27] MEDS: PANTOPRAZOLE 40 MG TABLET. PO SCH (07:32)
[2018-06-27] MEDS: FUROSEMIDE 40 MG TABLET PO SCH (07:32)
[2018-06-27] MEDS: POTASSIUM CHLORIDE 20 MEQ TABLET.ER. PO SCH (07:32)
[2018-06-27] MEDS: CHOLECALCIFEROL (VITAMIN D3) 1,000 UNIT TABLET PO SCH ×2 (07:32→20:12)
[2018-06-27] MEDS: METOPROLOL SUCC 24HR ER 50 MG TAB.ER.24H. PO SCH (07:32)
[2018-06-27] MEDS: ASPIRIN 81 MG TAB.CHEW PO SCH (07:32)
[2018-06-27] MEDS: ISOSORBIDE MONONITRATE ER 30 MG TAB.ER.24H PO SCH (07:33)
[2018-06-27] MEDS: OMEGA-3 FATTY ACIDS/FISH OIL 1,000 MG CAPSULE. PO SCH (07:33)
[2018-06-27] MEDS: BRIMONIDINE 0.2% OPHTH SOLUTION 5ML BOTTLE. OU SCH ×2 (07:34→20:13)
[2018-06-27] MEDS: DORZOLAMIDE 2% OPHTH SOLUTION 10ML BOTTLE. OU SCH ×2 (07:34→20:13)
[2018-06-27] MEDS: RIVAROXABAN 15 MG TABLET. PO SCH (16:35)
[2018-06-27 18:02] VITALS: BP 130/79
[2018-06-27] MEDS: NIACIN ER 500 MG TABLET.ER PO SCH (20:13)
[2018-06-27] MEDS: LATANOPROST 0.005% OPHTH SOLUTION 2.5ML BOTTLE. OU SCH (20:13)
[2018-06-27] MEDS: ATORVASTATIN CALCIUM 20 MG TABLET PO SCH (20:13)
[2018-06-27] MEDS: FAMOTIDINE 20 MG TABLET PO SCH (20:13)
[2018-06-28 05:54] VITALS: BP 144/82
[2018-06-28] MEDS: PANTOPRAZOLE 40 MG TABLET. PO SCH (07:39)
[2018-06-28] MEDS: ASPIRIN 81 MG TAB.CHEW PO SCH (07:39)
[2018-06-28] MEDS: POTASSIUM CHLORIDE 20 MEQ TABLET.ER. PO SCH (07:39)
[2018-06-28] MEDS: FUROSEMIDE 40 MG TABLET PO SCH (07:40)
[2018-06-28] MEDS: MAGNESIUM OXIDE 400 MG TABLET PO SCH ×2 (07:40→20:55)
[2018-06-28] MEDS: METOPROLOL SUCC 24HR ER 50 MG TAB.ER.24H. PO SCH (07:40)
[2018-06-28] MEDS: AMIODARONE HCL 200 MG TABLET PO SCH ×2 (07:40→20:55)
[2018-06-28] MEDS: ACETAMINOPHEN 500 MG TABLET PO SCH ×2 (07:41→20:55)
[2018-06-28] MEDS: OMEGA-3 FATTY ACIDS/FISH OIL 1,000 MG CAPSULE. PO SCH (07:41)
[2018-06-28] MEDS: CHOLECALCIFEROL (VITAMIN D3) 1,000 UNIT TABLET PO SCH ×2 (07:41→20:56)
[2018-06-28] MEDS: ISOSORBIDE MONONITRATE ER 30 MG TAB.ER.24H PO SCH (07:41)
[2018-06-28] MEDS: BRIMONIDINE 0.2% OPHTH SOLUTION 5ML BOTTLE. OU SCH ×2 (08:39→20:54)
[2018-06-28] MEDS: DORZOLAMIDE 2% OPHTH SOLUTION 10ML BOTTLE. OU SCH ×2 (08:39→20:54)
[2018-06-28] MEDS: RIVAROXABAN 15 MG TABLET. PO SCH (17:09)
[2018-06-28 18:31] VITALS: BP 113/58
[2018-06-28] MEDS: LATANOPROST 0.005% OPHTH SOLUTION 2.5ML BOTTLE. OU SCH (20:54)
[2018-06-28] MEDS: ATORVASTATIN CALCIUM 20 MG TABLET PO SCH (20:55)
[2018-06-28] MEDS: FAMOTIDINE 20 MG TABLET PO SCH (20:55)
[2018-06-28] MEDS: NIACIN ER 500 MG TABLET.ER PO SCH (20:56)
[2018-06-29 06:24] VITALS: BP 127/63
[2018-06-29] MEDS: DORZOLAMIDE 2% OPHTH SOLUTION 10ML BOTTLE. OU SCH ×2 (08:18→20:49)
[2018-06-29] MEDS: METHYL SALICYLATE/MENTHOL TOPICAL OINTMENT 29GM TUBE. TP PRN ×2 (08:18→20:49)
[2018-06-29] MEDS: BRIMONIDINE 0.2% OPHTH SOLUTION 5ML BOTTLE. OU SCH ×2 (08:18→20:49)
[2018-06-29] MEDS: ACETAMINOPHEN 500 MG TABLET PO SCH ×2 (08:19→20:48)
[2018-06-29] MEDS: ISOSORBIDE MONONITRATE ER 30 MG TAB.ER.24H PO SCH (08:19)
[2018-06-29] MEDS: OMEGA-3 FATTY ACIDS/FISH OIL 1,000 MG CAPSULE. PO SCH (08:19)
[2018-06-29] MEDS: FUROSEMIDE 40 MG TABLET PO SCH (08:20)
[2018-06-29] MEDS: CHOLECALCIFEROL (VITAMIN D3) 1,000 UNIT TABLET PO SCH ×2 (08:20→20:47)
[2018-06-29] MEDS: PANTOPRAZOLE 40 MG TABLET. PO SCH (08:20)
[2018-06-29] MEDS: POTASSIUM CHLORIDE 20 MEQ TABLET.ER. PO SCH (08:20)
[2018-06-29] MEDS: METOPROLOL SUCC 24HR ER 50 MG TAB.ER.24H. PO SCH (08:20)
[2018-06-29] MEDS: SPIRONOLACTONE 25 MG TABLET PO SCH (08:21)
[2018-06-29] MEDS: ASPIRIN 81 MG TAB.CHEW PO SCH (08:21)
[2018-06-29] MEDS: MAGNESIUM OXIDE 400 MG TABLET PO SCH ×2 (08:21→20:49)
[2018-06-29] MEDS: AMIODARONE HCL 200 MG TABLET PO SCH ×2 (08:21→20:47)
[2018-06-29] MEDS: RIVAROXABAN 15 MG TABLET. PO SCH (16:18)
[2018-06-29 16:50] LABS: BASO % 1 % (0-3); EOS # 0.4 x10^3/uL (0.0-0.7); EOS % 4 % (0-3); HEMOGLOBIN 12.9 g/dL (12.0-15.5); LYMPH # 1.2 x10^3/uL (1.0-4.8); LYMPH % 13 % (24-48); MEAN CORPUSCULAR HEMOGLOBIN 34 pg (25-35); MEAN CORPUSCULAR HGB CONC 33 g/dL (31-37); MEAN CORPUSCULAR VOLUME 102 fL (79-100); MONO # 0.8 x10^3/uL (0.0-1.1); MONO % 9 % (0-9); NEUT % 74 % (31-73); PLATELET COUNT 369 x10^3/uL (140-400); RED BLOOD COUNT 3.84 x10^6/uL (3.50-5.40); RED CELL DISTRIBUTION WIDTH 14.3 % (11.5-14.5); WHITE BLOOD COUNT 9.5 x10^3/uL (4.0-11.0)
[2018-06-29 16:58] LABS: CALCIUM 9.6 mg/dL (8.5-10.1); CREATININE 1.3 mg/dL (0.6-1.0); GFR 39.1; POTASSIUM 4.6 mmol/L (3.5-5.1)
[2018-06-29 18:38] VITALS: BP 119/74
[2018-06-29] MEDS: HYDROcodone/APAP 5/325MG 1 TAB TABLET PO PRN (19:29)
[2018-06-29] MEDS: NIACIN ER 500 MG TABLET.ER PO SCH (20:48)
[2018-06-29] MEDS: FAMOTIDINE 20 MG TABLET PO SCH (20:48)
[2018-06-29] MEDS: ATORVASTATIN CALCIUM 20 MG TABLET PO SCH (20:48)
[2018-06-29] MEDS: LATANOPROST 0.005% OPHTH SOLUTION 2.5ML BOTTLE. OU SCH (20:49)
[2018-06-30 06:19] VITALS: BP 144/78
[2018-06-30] MEDS: BRIMONIDINE 0.2% OPHTH SOLUTION 5ML BOTTLE. OU SCH ×2 (08:23→21:44)
[2018-06-30] MEDS: ASPIRIN 81 MG TAB.CHEW PO SCH (08:23)
[2018-06-30] MEDS: ISOSORBIDE MONONITRATE ER 30 MG TAB.ER.24H PO SCH (08:23)
[2018-06-30] MEDS: DORZOLAMIDE 2% OPHTH SOLUTION 10ML BOTTLE. OU SCH ×2 (08:23→21:43)
[2018-06-30] MEDS: METOPROLOL SUCC 24HR ER 50 MG TAB.ER.24H. PO SCH (08:24)
[2018-06-30] MEDS: OMEGA-3 FATTY ACIDS/FISH OIL 1,000 MG CAPSULE. PO SCH (08:24)
[2018-06-30] MEDS: POTASSIUM CHLORIDE 20 MEQ TABLET.ER. PO SCH (08:24)
[2018-06-30] MEDS: FUROSEMIDE 40 MG TABLET PO SCH (08:24)
[2018-06-30] MEDS: ACETAMINOPHEN 500 MG TABLET PO SCH ×2 (08:24→21:43)
[2018-06-30] MEDS: CHOLECALCIFEROL (VITAMIN D3) 1,000 UNIT TABLET PO SCH ×2 (08:24→21:41)
[2018-06-30] MEDS: PANTOPRAZOLE 40 MG TABLET. PO SCH (08:25)
[2018-06-30] MEDS: MAGNESIUM OXIDE 400 MG TABLET PO SCH ×2 (08:25→21:41)
[2018-06-30] MEDS: AMIODARONE HCL 200 MG TABLET PO SCH (08:25)
[2018-06-30] MEDS: SPIRONOLACTONE 25 MG TABLET PO SCH (08:25)
[2018-06-30 08:57] LABS: FECAL OB PT POSITIVE (NEG)
[2018-06-30] MEDS: RIVAROXABAN 15 MG TABLET. PO SCH (10:29)
[2018-06-30 12:16] LABS: HEMATOCRIT 36.5 % (36.0-47.0); HEMOGLOBIN 12.2 g/dL (12.0-15.5)
[2018-06-30 17:55] VITALS: BP 109/73
[2018-06-30] MEDS: FAMOTIDINE 20 MG TABLET PO SCH (21:43)
[2018-06-30] MEDS: NIACIN ER 500 MG TABLET.ER PO SCH (21:43)
[2018-06-30] MEDS: ATORVASTATIN CALCIUM 20 MG TABLET PO SCH (21:43)
[2018-06-30] MEDS: LATANOPROST 0.005% OPHTH SOLUTION 2.5ML BOTTLE. OU SCH (21:44)
[2018-06-30] MEDS: NYSTATIN TOPICAL POWDER 15GM BOTTLE. TP SCH (22:57)
[2018-07-01 06:35] VITALS: BP 149/81
[2018-07-01] MEDS: CHOLECALCIFEROL (VITAMIN D3) 1,000 UNIT TABLET PO SCH (07:55)
[2018-07-01] MEDS: ISOSORBIDE MONONITRATE ER 30 MG TAB.ER.24H PO SCH (07:56)
[2018-07-01] MEDS: OMEGA-3 FATTY ACIDS/FISH OIL 1,000 MG CAPSULE. PO SCH (07:56)
[2018-07-01] MEDS: ACETAMINOPHEN 500 MG TABLET PO SCH (07:56)
[2018-07-01] MEDS: POTASSIUM CHLORIDE 20 MEQ TABLET.ER. PO SCH (07:56)
[2018-07-01] MEDS: METOPROLOL SUCC 24HR ER 50 MG TAB.ER.24H. PO SCH (07:56)
[2018-07-01 07:57] VITALS: BP 149/81
[2018-07-01] MEDS: FUROSEMIDE 40 MG TABLET PO SCH (07:57)
[2018-07-01] MEDS: ASPIRIN 81 MG TAB.CHEW PO SCH (07:57)
[2018-07-01] MEDS: SPIRONOLACTONE 25 MG TABLET PO SCH (07:57)
[2018-07-01] MEDS: PANTOPRAZOLE 40 MG TABLET. PO SCH (07:57)
[2018-07-01] MEDS: AMIODARONE HCL 200 MG TABLET PO SCH (07:57)
[2018-07-01] MEDS: MAGNESIUM OXIDE 400 MG TABLET PO SCH (07:57)
[2018-07-01] MEDS: NYSTATIN TOPICAL POWDER 15GM BOTTLE. TP SCH (07:57)
[2018-07-01] MEDS: DORZOLAMIDE 2% OPHTH SOLUTION 10ML BOTTLE. OU SCH (08:02)
[2018-07-01] MEDS: BRIMONIDINE 0.2% OPHTH SOLUTION 5ML BOTTLE. OU SCH (08:02)
--- NOTE | 2018-07-01 15:26 | DS ---
DATE OF DISCHARGE: 07/01/2018 HOSPITAL COURSE: The patient is an 83-year-old female patient who was admitted to a swing bed after she was discharged from [facility] with a complaint of shortness of breath and chest pressure on exertion, dramatic weight gain from 180 to 209. She was found to be in atrial fibrillation with rapid ventricular response. She has had an echocardiogram, which showed that the ejection fraction to be around 43%. She was treated aggressively with IV antibiotic. 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 She did have 3 bowel movements with maroon-colored stool that was positive for blood and therefore, I held her Xarelto and I spoke with Dr. Gastelum, who recommended to hold her Xarelto for about a week. PHYSICAL EXAMINATION: GENERAL: When I saw her this afternoon, she looked well and was clearly in no apparent respiratory distress, pale, but no jaundice, cyanosis, or thyromegaly. No jugular venous distension. No lower limb edema. VITAL SIGNS: Her heart rate was 73, blood pressure was 149/81, temperature was 98.4, respiratory rate was 18 and oxygen saturation was 97%. HEAD, EYES, EARS, NOSE AND THROAT: Normocephalic, atraumatic. NECK: Supple. HEART: Showed normal first and second heart sounds. No gallop, rub or murmur. CHEST: Clear to auscultation. No crepitation or rhonchi. ABDOMEN: Distended, soft, nontender. NEUROLOGIC: She is awake, alert, responding appropriately. All cranial nerves intact. EXTREMITIES: She moves extremities without difficulty. She ambulates with a walker without any assistance. LABORATORY DATA: Most recent hemoglobin was 12.2, hematocrit 36.5. Her weight was 176 pounds. DISCHARGE MEDICATIONS: She was discharged home to continue on following medications: Acetaminophen 1000 mg twice a day, amiodarone 200 mg twice a day, aspirin 81 mg once a day, brimonidine tartrate for Alphagan one drop to both eyes twice a day, cholecalciferol for vitamin D3 2000 international twice a day, dorzolamide 1 drop to both eyes twice a day, famotidine 40 mg at bedtime, furosemide 40 mg daily, hydrocodone/APAP 5/325 one tablet every 6 hours, isosorbide mononitrate 120 mg daily, latanoprost 1 drop to both eyes at bedtime, loperamide simethicone for Imodium Multi-Symptom 1 tablet every 4 hours, magnesium oxide 400 mg twice a day, Biofreeze applied topically twice a day, metoprolol succinate 50 mg once a day, niacin for Niaspan 1000 mg at bedtime, nitroglycerin 0.4 mg sublingually every 5 minutes x 3, omega-3 fatty acids, vitamin E 2000 units daily, Protonix 40 mg p.o. daily, pitavastatin calcium for Livalo 4 mg daily, potassium chloride 20 mEq once a day. FINAL DISCHARGE DIAGNOSES: 1. Atrial fibrillation with rapid ventricular response, resolved. 2. Acute on chronic systolic congestive heart failure, resolved. Her weight is down from 209 to 176. Other medical problems include coronary artery disease, gastroesophageal reflux disease, hypertension, hyperlipidemia, pulmonary embolism, polymyalgia rheumatica and heart block. DORINDA MEJIA MD DR: SHEILA/lee JOB#: [id number] / [id number]
== END 2018-07-01 16:00 | disposition home or self-care (01) | DRG 308 ==
LOC: LND 16:51
PROVIDERS: ADMIT Internal Medicine; ATTEND Internal Medicine
DX: I48.91 Unspecified atrial fibrillation (principal); I50.23 Acute on chronic systolic (congestive) heart failure; R07.89 Other chest pain; D50.9 Iron deficiency anemia, unspecified; E78.5 Hyperlipidemia, unspecified; I11.0 Hypertensive heart disease with heart failure; I25.10 Atherosclerotic heart disease of native coronary artery without angina pectoris; I45.9 Conduction disorder, unspecified; K21.9 Gastro-esophageal reflux disease without esophagitis; K76.1 Chronic passive congestion of liver; Z96.651 Presence of right artificial knee joint; M35.3 Polymyalgia rheumatica; Z80.9 Family history of malignant neoplasm, unspecified; Z82.49 Family history of ischemic heart disease and other diseases of the circulatory system; Z85.42 Personal history of malignant neoplasm of other parts of uterus; Z87.891 Personal history of nicotine dependence; Z90.710 Acquired absence of both cervix and uterus; Z86.711 Personal history of pulmonary embolism; Z95.1 Presence of aortocoronary bypass graft; Z88.8 Allergy status to other drugs, medicaments and biological substances; Z91.040 Latex allergy status
CPT/HCPCS: 36415; 80048; 80053; 82274; 85014; 85018; 85025; 85610; 93005; 97161; 97110; 97116; 97530; 97535

== ENCOUNTER → 2018-07-03 | Outpatient (CLI) | payer MEDICARE ==
[2018-07-01 07:57] VITALS: BP 149/81
[~2018-07-03] MED LIST changes: +AMIO200T4 PO; +ISOS120T4 PO; +MAGN400T22 PO; +MENT118G TP; +RIVA15TA PO
[2018-07-03 17:20] LABS: BASO # 0.1 x10^3/uL (0.0-0.2); BASO % 1 % (0-3); EOS # 0.2 x10^3/uL (0.0-0.7); EOS % 2 % (0-3); HEMATOCRIT 42.5 % (36.0-47.0); LYMPH # 1.2 x10^3/uL (1.0-4.8); LYMPH % 15 % (24-48); MEAN CORPUSCULAR HEMOGLOBIN 34 pg (25-35); MEAN CORPUSCULAR HGB CONC 33 g/dL (31-37); MEAN CORPUSCULAR VOLUME 102 fL (79-100); MONO # 0.4 x10^3/uL (0.0-1.1); MONO % 5 % (0-9); NEUT # 6.1 x10^3uL (1.8-7.7); NEUT % 77 % (31-73); PLATELET COUNT 363 x10^3/uL (140-400); RED BLOOD COUNT 4.17 x10^6/uL (3.50-5.40); RED CELL DISTRIBUTION WIDTH 14.5 % (11.5-14.5); WHITE BLOOD COUNT 7.9 x10^3/uL (4.0-11.0)
[2018-07-03 17:33] LABS: ALBUMIN 3.7 g/dL (3.4-5.0); ALBUMIN/GLOBULIN RATIO 0.8 (1.0-1.7); CREATININE 1.6 mg/dL (0.6-1.0); GFR 30.8; POTASSIUM 4.2 mmol/L (3.5-5.1); TOTAL PROTEIN 8.1 g/dL (6.4-8.2)
== END | disposition home or self-care (01) ==
LOC: LAB 16:22
PROVIDERS: ATTEND Internal Medicine
DX: N18.9 Chronic kidney disease, unspecified (principal); D63.1 Anemia in chronic kidney disease
CPT/HCPCS: 36415; 80053; 85025

== ENCOUNTER → 2018-07-21 | Outpatient (CLI) | payer MEDICARE ==
[2018-07-01 07:57] VITALS: BP 149/81
--- NOTE | 2018-07-21 16:49 | RAD ---
DATE: 07/21/2018 EXAM: MAMMO SCREENING BILATERAL HISTORY: Routine screening COMPARISON: 07/21/2017 This study was interpreted with the benefit of Computerized Aided Detection (CAD). Breast Density: SCATTERED The breast parenchyma shows scattered fibroglandular densities. Breast parenchyma level B. FINDINGS: The fibroglandular pattern is asymmetric but unchanged, with increased retroareolar density on the left compared to the right. No new or enlarging breast densities are seen. Benign type calcifications present. No suspicious microcalcifications have developed. IMPRESSION: Stable mammograms without evidence of malignancy. BI-RADS CATEGORY: 2 BENIGN FINDING(S) RECOMMENDED FOLLOW-UP: 12M 12 MONTH FOLLOW-UP PQRS compliance statement: Patient information was entered into a reminder system with a target due date for the next mammogram. Mammography is a sensitive method for finding small breast cancers, but it does not detect them all and is not a substitute for careful clinical examination. A negative mammogram does not negate a clinically suspicious finding and should not result in delay in biopsying a clinically suspicious abnormality. "Our facility is accredited by the [employer] Mammography Program."
== END | disposition home or self-care (01) ==
LOC: MAMMO 15:13
PROVIDERS: ATTEND Specialist
DX: Z12.31 Encounter for screening mammogram for malignant neoplasm of breast (principal); N64.89 Other specified disorders of breast
CPT/HCPCS: 77063; 77067

== ENCOUNTER → 2019-01-20 | Outpatient (CLI) | payer MEDICARE ==
[~2019-01-20] MED LIST changes: -NITR0.4T SL; +NITR0.4T24 SL; +POTA10TA12 PO; -POTA10TA31 PO
--- NOTE | 2019-01-20 17:53 | RAD ---
PQRS Compliance statement: One or more of the following individualized dose reduction techniques were utilized for this examination: 1. Automated exposure control. 2. Adjustment of the mA and/or kV according to patient size. 3. Use of iterative reconstruction technique. INDICATION: Fall and headache TECHNIQUE: CT of the head without IV contrast with reformats COMPARISON: None FINDINGS: No pathologic extra-axial or intra-axial fluid collection. The ventricles and basal cisterns are within normal limits. No acute intracranial bleed. No focal loss of soares-white differentiation. Orbits are within normal limits. No large scalp hematoma. No acute calvarial fractures. Visualized paranasal sinuses and mastoid air cells are clear. IMPRESSION: No acute intracranial bleed or calvarial fracture. Indication: Fall. Left knee pain. Right shoulder pain. TECHNIQUE: 3 views of the left knee and 3 views of the right shoulder. COMPARISON:None FINDINGS: Knee. Status post total knee arthroplasty. No acute fracture or location. No joint effusion. Shoulder: Mild acromioclavicular and glenohumeral joint osteoarthritis. No acute fracture or dislocation. Calcified right axillary lymph node, nonspecific. Right lung is clear. IMPRESSION: As above. Electronically signed by: Sidney Olivera DO (01/20/2019 5:50 PM) [facility]
== END | disposition home or self-care (01) ==
LOC: DXRAD 17:12
PROVIDERS: ATTEND Physician Assistant
DX: M19.011 Primary osteoarthritis, right shoulder (principal); I89.8 Other specified noninfective disorders of lymphatic vessels and lymph nodes; W19.XXXA Unspecified fall, initial encounter; Y93.89 Activity, other specified; Y92.89 Other specified places as the place of occurrence of the external cause; Y99.8 Other external cause status; Z96.651 Presence of right artificial knee joint
CPT/HCPCS: 70450; 73030; 73562

== ENCOUNTER → 2019-02-07 | Outpatient (CLI) | payer MEDICARE ==
--- NOTE | 2019-02-07 16:00 | RAD ---
EXAM: Thoracic spine, 3 views. HISTORY: Pain. COMPARISON: None. FINDINGS: 3 views of the thoracic spine are obtained. There is no listhesis. There is degenerative endplate remodeling with major spurring at the mid thoracic levels. There is a prominent cardiac silhouette and evidence of prior CABG. There is a cardiac pacemaker in expected position. There are coarse likely chronic interstitial changes. There is suspected basilar pleural-parenchymal scarring. There are calcified granulomas. IMPRESSION: Multilevel degenerative endplate remodeling. No acute osseous finding. Electronically signed by: Yuko Gilliam MD (02/07/2019 3:57 PM) [place] [id number]
== END | disposition home or self-care (01) ==
LOC: DXRAD 10:15
PROVIDERS: ATTEND Specialist
DX: M47.814 Spondylosis without myelopathy or radiculopathy, thoracic region (principal)
CPT/HCPCS: 72072

== ENCOUNTER → 2019-06-23 | Outpatient (CLI) | payer MEDICARE ==
[~2019-06-23] MED LIST changes: -MAGN2400 PO; +MAGN24003 PO
[2019-06-23 13:31] LABS: CALCIUM 9.6 mg/dL (8.5-10.1); CREATININE 1.5 mg/dL (0.6-1.0); GFR 33.1; POTASSIUM 3.3 mmol/L (3.5-5.1)
== END | disposition home or self-care (01) ==
LOC: LAB 11:59
PROVIDERS: ATTEND Internal Medicine Cardiovascular Disease
DX: I11.0 Hypertensive heart disease with heart failure (principal); I50.43 Acute on chronic combined systolic (congestive) and diastolic (congestive) heart failure
CPT/HCPCS: 36415; 80048; 83880

== ENCOUNTER → 2019-08-01 | Outpatient (CLI) | payer MEDICARE ==
--- NOTE | 2019-08-02 12:23 | RAD ---
DATE: 08/01/2019 2:52 PM EXAM: MAMMO JAYLYN SCREENING BILATERAL HISTORY: Screening COMPARISON: 07/21/2018, 07/21/2017 Bilateral CC and MLO views of the breasts were performed. Bilateral breast tomosynthesis was performed in CC and MLO projections. This study was interpreted with the benefit of Computerized Aided Detection (CAD). FINDINGS: Breast Density: SCATTERED The breast parenchyma shows scattered fibroglandular densities. Breast parenchyma level B No suspicious masses, microcalcifications or architectural distortion is present to suggest malignancy in either breast. The visualized axillae are unremarkable. IMPRESSION: No mammographic evidence of malignancy. BI-RADS CATEGORY: 1 NEGATIVE RECOMMENDED FOLLOW-UP: 12M 12 MONTH FOLLOW-UP Annual screening mammography is recommended, unless clinically indicated sooner based on symptoms or change in physical exam. PQRS compliance statement: Patient information was entered into a reminder system with a target due date 08/01/2019 for the next mammogram. Mammography is a sensitive method for finding small breast cancers, but it does not detect them all and is not a substitute for careful clinical examination. A negative mammogram does not negate a clinically suspicious finding and should not result in delay in biopsying a clinically suspicious abnormality. "Our facility is accredited by the [employer] Mammography Program."
== END | disposition home or self-care (01) ==
LOC: MAMMO 14:06
PROVIDERS: ATTEND Specialist
DX: Z12.31 Encounter for screening mammogram for malignant neoplasm of breast (principal)
CPT/HCPCS: 77063; 77067

== ENCOUNTER 2019-11-18 19:37 | Emergency (ER) | payer MEDICARE ==
[~2019-11-18] VITALS: Ht 165.1 cm; Wt 76.8 kg
[~2019-11-18 19:37] MED LIST changes: -AMIO200T4 PO; +AMIO200T6 PO
--- NOTE | 2019-11-18 19:51 | PHYS DOC ---
Past History Past Medical History: Arthritis, CAD, CHF, DVT, Gallstones, GERD, High Cholesterol, Heart Disease, Hypertension, Pneumonia, Other Past Medical History Pulmonary embolism, polymyalgia rheumatica, Uterine cancer Past Surgical History: Appendectomy, Coronary Bypass Surgery, Hysterectomy, Knee Replacement, Tonsillectomy Smoking: Non-smoker Alcohol Use: None Drug Use: None General Adult EDM: Chief Complaint: ANIMAL BITE HPI: HPI: ".. My cat Jatinder.. he likes to play.. He grabs my arm.. when I stop petting him.. He bites playful..my son brought him home.. he was to throw him in the river for a felisa.. but instead he brought him home.. He been my constant compan ion... He is a Inside cat. He has had all his shots... He has been castrated....'" He is with me constantly.. and wants my constant attention.. " Patient is a 84 year old female who presents with a cat bite to left hand by her cat "Jatinder". Reportedly this was not a aggressive bite but cat requires her constant attention. The cat bit her playfully when she stopped petting him. The cat is up-to-date with vaccinations. Patient does not remember her last tetanus. Patient has a bite that is in Lt hand that is draining and a small puncture amy. There is surrounding erythema and discoloration. Bite occurred approximately 24 hours ago. Patient has extensive medical history with multiple allergies and drug sensitivities. Pacemaker, heart catheterization and stents, GERD, heart block, hypertension, hyperlipidemia, pulmonary embolisms, polymyalgia rheumatica, uterine cancer, right knee replacement, colon diverticulitis which required surgery., pt. follows with Dr. Lassiter. Review of Systems: Review of Systems: Constitutional: Denies fever or chills Eyes: Denies change in visual acuity HENT: Denies nasal congestion or sore throat Respiratory: Denies cough or shortness of breath Cardiovascular: Denies chest pain or edema GI: Denies abdominal pain, nausea, vomiting, bloody stools or diarrhea : Denies dysuria Musculoskeletal: Denies back pain or joint pain Integument: Complains of cellulitis left hand Neurologic: Denies headache, focal weakness or sensory changes Endocrine: Denies polyuria or polydipsia Lymphatic: Denies swollen glands Psychiatric: Denies depression or anxiety Heart Score: Risk Factors: Risk Factors: DM, Current or recent (<one month) smoker, HTN, HLP, family history of CAD, obesity. Risk Scores: Score 0 - 3: 2.5% MACE over next 6 weeks - Discharge Home Score 4 - 6: 20.3% MACE over next 6 weeks - Admit for Clinical Observation Score 7 - 10: 72.7% MACE over next 6 weeks - Early Invasive Strategies Family History: Family History: Coronary artery disease-mother, cancer with father, coronary artery disease with brother. Current Medications: Current Meds: See nursing for home meds Allergies: Allergies: Allergies Coded Allergies Type Severity Reaction Last Updated Verified latex Allergy Severe Rash 06/06/18 Yes Lelqdek-Ntf-Rxe Reductase Inhibitor Allergy Intermediate muscle pain 06/06/18 No adhesive Allergy Intermediate RASH 06/06/18 No bacitracin Allergy Intermediate rash 06/06/18 No ezetimibe Allergy Intermediate muscle pain 06/06/18 No neomycin Allergy Intermediate rash 06/06/18 No polymyxin B Allergy Intermediate rash 03/20/18 No propoxyphene Allergy Intermediate HALLUCINATIONS 03/20/18 No Physical Exam: PE: Constitutional: in acute distress, non-toxic appearance. [] HENT: Normocephalic, atraumatic, bilateral external ears normal, oropharynx moist, no oral exudates, nose normal. [] Eyes: PERRLA, EOMI, conjunctiva normal, no discharge. [] Neck: Normal range of motion, no tenderness, supple, no stridor. [] Cardiovascular:Heart rate regular rhythm, no murmur, PMI to the left Lungs & Thorax: Bilateral breath sounds equal apex with scattered wheezes on auscultation [] Abdomen: Bowel sounds normal, soft, no tenderness, no masses, no pulsatile masses. Old surgical scars. Obese. Skin: Warm, dry, no erythema, no rash. Cellulitis and puncture wound left hand Back: No tenderness, no CVA tenderness. [] Extremities: No tenderness, no cyanosis, no clubbing, ROM intact, no edema. Except findings in left hand. Arthritic changes. Neurologic: Alert and oriented X 3, has distal motor function, has distal sensory function, no focal deficits noted. Patient is right-hand dominant. Psychologic: Affect anxious, judgement normal, mood normal. [] EKG: EKG: [] Radiology/Procedures: Radiology/Procedures: [][address] [address] IMAGING REPORT Signed PATIENT: TREASURE CONTI: [id number] : 1935 LOCATION: ER AGE: 84 SEX: F EXAM STATUS: DEP ER ORD. PHYSICIAN: ABIODUN HUTCHINSON MD REASON: cat bite, BASE OF 2ND FINGER PROCEDURE: HAND LEFT 3V Exam: Left hand 3 views INDICATION: Cat bite, base of second finger TECHNIQUE: Frontal, lateral and oblique views of the left hand Comparisons: None FINDINGS: Diffuse osteopenia. Severe degenerative change at the intercarpal joints. No acute or healed fractures. Soft tissues are unremarkable. IMPRESSION: No acute osseous abnormality. No radiopaque foreign body identified. Electronically signed by: Ida Hudson MD (11/18/2019 10:29 PM) [id number] DICTATED AND SIGNED BY: IDA HUDSON MD DATE: 11/18/192228 CC: ABIODUN HUTCHINSON MD; SHAHNAZ LASSITER MD ~ Course & Med Decision Making: Course & Med Decision Making Pertinent Labs and Imaging studies reviewed. (See chart for details) Patient do warm water soaks and Epson salts or salt 4 times a day. After soaks apply Polysporin and rub into the area of inflammation. Patient take Augmentin 875 twice a day. Tylenol and ibuprofen for pain. Must monitor site very closely for expanding infection or striation or drainage. May need admission for IV antibiotics. Follow-up primary care. Must be monitor for infection. Patient advised she is high risk for poor outcome. Pt.to follow with Dr. Lassiter- soon so she can monitor progression of infection. Warned pt. if not improvement will need admission for IV antibiotics. Pt. declines admission at this time. Impression: 1. Cat Bite 2. 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 Departure Departure: Disposition: 01 DC HOME SELF CARE/HOMELESS Condition: STABLE Referrals: SHAHNAZ LASSITER MD (PCP) Scripts Amoxicillin/Potassium Clav (AUGMENTIN 875-125 TABLET) 1 Each Tablet 1 TAB PO BID for cat bite for 10 Days, #20 TAB 0 Refills Prov: ABIODUN HUTCHINSON MD 11/18/19 Marc Disclaimer This chart was dictated in whole or in part using Voice Recognition software in a busy, high-work load, and often noisy Emergency Department environment. It may contain unintended and wholly unrecognized errors or omissions. Dragon Disclaimer This chart was dictated in whole or in part using Voice Recognition software in a busy, high-work load, and often noisy Emergency Department environment. It may contain unintended and wholly unrecognized errors or omissions. Dragon Disclaimer This chart was dictated in whole or in part using Voice Recognition software in a busy, high-work load, and often noisy Emergency Department environment. It may contain unintended and wholly unrecognized errors or omissions. ABIODUN HUTCHINSON MD Nov 18, 2019 19:51
[2019-11-18] MEDS ORDERED: TETANUS AND DIPHTHERIA TOX/PF 0.5 ML VIAL. VAX IM ONE (20:30)
[2019-11-18 20:33] LABS: BASO # 0.1 x10^3/uL (0.0-0.2); BASO % 1 % (0-3); EOS # 0.2 x10^3/uL (0.0-0.7); EOS % 3 % (0-3); HEMATOCRIT 37.5 % (36.0-47.0); HEMOGLOBIN 12.5 g/dL (12.0-15.5); LYMPH # 0.8 x10^3/uL (1.0-4.8); LYMPH % 10 % (24-48); MEAN CORPUSCULAR HEMOGLOBIN 37 pg (25-35); MEAN CORPUSCULAR HGB CONC 34 g/dL (31-37); MEAN CORPUSCULAR VOLUME 109 fL (79-100); MONO # 1.3 x10^3/uL (0.0-1.1); MONO % 15 % (0-9); NEUT % 72 % (31-73); PLATELET COUNT 205 x10^3/uL (140-400); RED BLOOD COUNT 3.44 x10^6/uL (3.50-5.40); RED CELL DISTRIBUTION WIDTH 13.8 % (11.5-14.5); WHITE BLOOD COUNT 8.3 x10^3/uL (4.0-11.0)
[2019-11-18 20:54] LABS: CALCIUM 9.8 mg/dL (8.5-10.1); CREATININE 2.2 mg/dL (0.6-1.0); GFR 21.3; POTASSIUM 4.2 mmol/L (3.5-5.1)
[2019-11-18 20:55] LABS: C REACTIVE PROTEIN 9.1 mg/L (0-3.3)
[2019-11-18] MEDS ORDERED: cefTRIAXone SODIUM 1 GM VIAL ONE (21:00)
[2019-11-18] MEDS ORDERED: IV NORMAL SALINE 50ML 50 ML ONE (21:00)
[2019-11-18] MEDS ORDERED: AMOX1TAB61 PO (21:50)
[2019-11-18 21:55] VITALS: BP 129/59
--- NOTE | 2019-11-18 22:32 | RAD ---
Exam: Left hand 3 views INDICATION: Cat bite, base of second finger TECHNIQUE: Frontal, lateral and oblique views of the left hand Comparisons: None FINDINGS: Diffuse osteopenia. Severe degenerative change at the intercarpal joints. No acute or healed fractures. Soft tissues are unremarkable. IMPRESSION: No acute osseous abnormality. No radiopaque foreign body identified. Electronically signed by: Ida Guerin MD (11/18/2019 10:29 PM) [id number]
== END 2019-11-18 22:22 | disposition home or self-care (01) ==
LOC: ER 19:37
DX: S61.452A Open bite of left hand, initial encounter (principal); L03.114 Cellulitis of left upper limb; M19.90 Unspecified osteoarthritis, unspecified site; I25.10 Atherosclerotic heart disease of native coronary artery without angina pectoris; I11.0 Hypertensive heart disease with heart failure; I50.9 Heart failure, unspecified; K21.9 Gastro-esophageal reflux disease without esophagitis; Z86.718 Personal history of other venous thrombosis and embolism; E78.00 Pure hypercholesterolemia, unspecified; Z86.711 Personal history of pulmonary embolism; I25.810 Atherosclerosis of coronary artery bypass graft(s) without angina pectoris; E78.5 Hyperlipidemia, unspecified; Z95.0 Presence of cardiac pacemaker; Z91.040 Latex allergy status; Z88.8 Allergy status to other drugs, medicaments and biological substances; Z88.1 Allergy status to other antibiotic agents; W55.01XA Bitten by cat, initial encounter; Y93.89 Activity, other specified; Y92.89 Other specified places as the place of occurrence of the external cause; Y99.8 Other external cause status
CPT/HCPCS: 36415; 73130; 80048; 83605; 83880; 85025; 85610; 85730; 86140; 87040; 90471; 90714; 96365; 99284; J0696

== ENCOUNTER → 2020-04-03 | Outpatient (CLI) | payer MEDICARE ==
[~2020-04-03] MED LIST changes: +AMOX1TAB61 PO; -ISOS30TA4 PO; +ISOS30TA68 PO
--- NOTE | 2020-04-03 17:42 | RAD ---
XR FOOT_RIGHT 3 VIEWS History: Reason: RT FOOT PAIN / Spl. Instructions: / History: Comparison: None. Technique: 3 views of the right foot Findings: Decreased osseous mineralization. No fracture or dislocation. Suggestion of pes planus with nonweight bearing views. The Lisfranc is normally aligned. Degenerative changes are present throughout the tars ometatarsal joints, most significantly at the third TMT where the proximal third metatarsal demonstra fatuma subchondral cystic change. Sclerotic margins at the second TMT. Mild degenerative changes of the metatarsophalangeal joints. Small plantar calcaneal spur. No focal soft tissue swelling. Impression: 1. Nonweightbearing appearance of pes planus with advanced degenerative changes of the right foot ta rsometatarsal joints. No acute osseous abnormality. Electronically signed by: Alban Evans MD (04/03/2020 5:39 PM) [facility]
== END ==
LOC: RAD 15:45
PROVIDERS: ATTEND Specialist
DX: M19.071 Primary osteoarthritis, right ankle and foot (principal); M77.31 Calcaneal spur, right foot
CPT/HCPCS: 73630

== ENCOUNTER → 2020-04-24 | Outpatient (CLI) | payer MEDICARE ==
--- NOTE | 2020-04-24 18:17 | RAD ---
PROCEDURE: XR FOOT_LEFT 3 VIEWS STUDY DATE: 04/24/2020 CLINICAL INDICATION / HISTORY: Reason: Left foot pain, hx. gout. / Spl. Instructions: / History: . TECHNIQUE: AP, lateral and oblique views of the left foot. COMPARISON: 04/03/2020 right foot x-rays FINDINGS: Generalized demineralization is present. No fracture or malalignment is shown. Subchondral lucencies in the intermetatarsal joints and between the tarsal bones in the midfoot are evident. Ther e is also mild joint space narrowing in the TMT and naviculocuneiform joints. No soft tissue swelling . No soft tissue masses. IMPRESSION: No fracture or malalignment with evidence of degenerative changes in the midfoot and luce ncies in the subchondral bone of the joints that could represent erosions from inflammatory arthropat hy such as can be seen with gout although no soft tissue tophi are evident on this exam. Electronically signed by: Andrés Hill MD (04/24/2020 6:14 PM) [id number]
== END ==
LOC: RAD 16:31
PROVIDERS: ATTEND Specialist
DX: M79.672 Pain in left foot (principal)
CPT/HCPCS: 73630

== ENCOUNTER 2020-04-26 03:00 | Emergency (ER) | payer MEDICARE ==
[~2020-04-26] VITALS: Ht 165.1 cm; Wt 78.0 kg
[2020-04-26] MEDS ORDERED: ASPIRIN CHEWABLE 81 MG TABLET. PO ONE (03:30)
[2020-04-26 03:31] LABS: BASO # 0.1 x10^3/uL (0.0-0.2); BASO % 1 % (0-3); EOS # 0.3 x10^3/uL (0.0-0.7); EOS % 4 % (0-3); HEMATOCRIT 38.7 % (36.0-47.0); HEMOGLOBIN 12.9 g/dL (12.0-15.5); LYMPH # 0.9 x10^3/uL (1.0-4.8); LYMPH % 11 % (24-48); MEAN CORPUSCULAR HEMOGLOBIN 35 pg (25-35); MEAN CORPUSCULAR HGB CONC 33 g/dL (31-37); MEAN CORPUSCULAR VOLUME 106 fL (79-100); MONO # 1.3 x10^3/uL (0.0-1.1); MONO % 15 % (0-9); NEUT # 5.8 x10^3uL (1.8-7.7); NEUT % 68 % (31-73); PLATELET COUNT 253 x10^3/uL (140-400); RED BLOOD COUNT 3.65 x10^6/uL (3.50-5.40); RED CELL DISTRIBUTION WIDTH 13.9 % (11.5-14.5); WHITE BLOOD COUNT 8.4 x10^3/uL (4.0-11.0)
[2020-04-26] MEDS ORDERED: HEPARIN for IV BOLUS 10,000 UNIT/10 ML VIAL. ONE (03:38)
[2020-04-26 03:39] LABS: CALCIUM 9.5 mg/dL (8.5-10.1); CREATININE 1.9 mg/dL (0.6-1.0); GFR 25.1; POTASSIUM 5.1 mmol/L (3.5-5.1)
[2020-04-26] MEDS ORDERED: HEPARIN 25,000UTS/250ML PREMIX 250 ML IV ONE (03:39)
[2020-04-26 03:42] VITALS: BP 153/74
[2020-04-26 03:45] LABS: ALBUMIN 2.8 g/dL (3.4-5.0); ALBUMIN/GLOBULIN RATIO 0.7 (1.0-1.7); TOTAL BILIRUBIN 0.5 mg/dL (0.2-1.0); TOTAL PROTEIN 6.8 g/dL (6.4-8.2)
[2020-04-26] MEDS ORDERED: diphenhydrAMINE 50 MG/ML VIAL IVP PRN (03:45)
[2020-04-26] MEDS ORDERED: HEPARIN 25,000UTS/250ML PREMIX 250 ML IV PRN (03:45)
[2020-04-26] MEDS ORDERED: FAMOTIDINE 20 MG/2 ML VIAL IVP PRN (03:45)
[2020-04-26] MEDS ORDERED: HEPARIN for IV BOLUS 10,000 UNIT/10 ML VIAL. IV ONE (03:45)
[2020-04-26] MEDS ORDERED: methylPREDNISolone SOD SUCC PF 125 MG/2 ML VIAL. IV PRN (03:45)
--- NOTE | 2020-04-26 04:00 | PHYS DOC ---
Past History Past Medical History: Arthritis, CAD, CHF, DVT, GERD, Glaucoma, High Cholesterol, Heart Disease, Hypertension, Pneumonia, Other Past Surgical History: Appendectomy, Coronary Bypass Surgery, Hysterectomy, Knee Replacement, Pacemaker, Tonsillectomy, Other Additional Past Surgical Histo: cardioversion Smoking: Non-smoker Additional Smoking Information: 54 years ago Alcohol Use: None Drug Use: None Adult General Chief Complaint Chief Complaint: CHEST PAIN HPI HPI Patient is an 85-year-old female with a past medical history of HI, and recent ablation for atrial fibrillation, on Eliquis who presents with a chief complaint of substernal chest pain, 8 out of 10, dull and achy in nature with radiation to the left neck, and left shoulder with tingling down the left arm that started just before coming into the emergency department. States that she had some mild nausea but no emesis with this. States that she was just sitting there when this began. Denies headache, changes in vision, other numbness/weakness/tinglin g, slurred speech, confusion, recent fevers, Covid/flu symptoms, dysuria, hematuria, diarrhea or blood in the stool. Review of Systems Review of Systems Review of systems otherwise unremarkable except noted in HPI Current Medications Current Medications Current Medications Medications (Trade) Dose Ordered Sig/Keyla Start Time Stop Time Status Last Admin Dose Admin Aspirin (Aspirin Chewable) 324 mg 1X ONCE 04/26/20 03:30 04/26/20 03:34 DC 04/26/20 03:31 324 MG Diphenhydramine HCl (Benadryl) 50 mg PRN 1X PRN 04/26/20 03:45 04/27/20 03:44 UNV Epinephrine HCl (EPINEPHrine AMPULE) 0.3 mg PRN 1X PRN 04/26/20 03:45 04/27/20 03:44 UNV Famotidine (Pepcid Vial) 20 mg PRN 1X PRN 04/26/20 03:45 04/27/20 03:44 UNV Heparin Sodium (Porcine) (Heparin Sodium) 4,000 unit 1X ONCE 04/26/20 03:45 04/26/20 03:46 UNV Heparin Sodium/ Dextrose 250 ml @ 0 mls/hr CONT PRN 04/26/20 03:45 UNV Methylprednisolone Sodium Succinate (SOLU-Medrol 125MG VIAL) 125 mg PRN 1X PRN 04/26/20 03:45 04/27/20 03:44 UNV Allergies Allergies Allergies Coded Allergies Type Severity Reaction Last Updated Verified latex Allergy Severe Rash 04/26/20 Yes Gtbezul-Bab-Jbo Reductase Inhibitor Allergy Intermediate muscle pain 04/26/20 No adhesive Allergy Intermediate RASH 04/26/20 No bacitracin Allergy Intermediate rash 04/26/20 No ezetimibe Allergy Intermediate muscle pain 04/26/20 No neomycin Allergy Intermediate rash 04/26/20 No polymyxin B Allergy Intermediate rash 04/26/20 No propoxyphene Allergy Intermediate HALLUCINATIONS 04/26/20 No Physical Exam Physical Exam Constitutional: Well developed, well nourished, no acute distress, non-toxic appearance. [] HENT: Normocephalic, atraumatic, bilateral external ears normal, oropharynx moist, no oral exudates, nose normal. [] Eyes: conjunctiva normal, no discharge. [] Neck: Normal range of motion, no tenderness, supple, no stridor. [] Cardiovascular: Normal rate, irregular rhythm Lungs & Thorax: Bilateral breath sounds clear to auscultation [] Abdomen: soft, no tenderness, no masses, no pulsatile masses. [] Skin: Warm, dry, no erythema, no rash. [] Back: No tenderness, no CVA tenderness. [] Extremities: No tenderness, no cyanosis, ROM intact, no edema. [] Neurologic: Alert and oriented X 3, normal motor function, no focal deficits noted. [] Current Patient Data Vital Signs Vital Signs Date Time Temp Pulse Resp B/P (MAP) Pulse Ox O2 Delivery O2 Flow Rate FiO2 04/26/20 03:39 74 18 132/50 (77) 96 Room Air 04/26/20 03:10 98.1 Lab Results Laboratory Tests Test 04/26/20 03:15 White Blood Count 8.4 x10^3/uL (4.0-11.0) Red Blood Count 3.65 x10^6/uL (3.50-5.40) Hemoglobin 12.9 g/dL (12.0-15.5) Hematocrit 38.7 % (36.0-47.0) Mean Corpuscular Volume 106 fL (79-100) H Mean Corpuscular Hemoglobin 35 pg (25-35) Mean Corpuscular Hemoglobin Concent 33 g/dL (31-37) Red Cell Distribution Width 13.9 % (11.5-14.5) Platelet Count 253 x10^3/uL (140-400) Neutrophils (%) (Auto) 68 % (31-73) Lymphocytes (%) (Auto) 11 % (24-48) L Monocytes (%) (Auto) 15 % (0-9) H Eosinophils (%) (Auto) 4 % (0-3) H Basophils (%) (Auto) 1 % (0-3) Neutrophils # (Auto) 5.8 x10^3uL (1.8-7.7) Lymphocytes # (Auto) 0.9 x10^3/uL (1.0-4.8) L Monocytes # (Auto) 1.3 x10^3/uL (0.0-1.1) H Eosinophils # (Auto) 0.3 x10^3/uL (0.0-0.7) Basophils # (Auto) 0.1 x10^3/uL (0.0-0.2) Sodium Level 138 mmol/L (136-145) Potassium Level 5.1 mmol/L (3.5-5.1) Chloride Level 104 mmol/L (98-107) Carbon Dioxide Level 24 mmol/L (21-32) Anion Gap 10 (6-14) Blood Urea Nitrogen 52 mg/dL (7-20) H Creatinine 1.9 mg/dL (0.6-1.0) H Estimated GFR (Cockcroft-Gault) 25.1 BUN/Creatinine Ratio 27 (6-20) H Glucose Level 112 mg/dL (70-99) H Calcium Level 9.5 mg/dL (8.5-10.1) Total Bilirubin Pending Aspartate Amino Transferase (AST) Pending Alanine Aminotransferase (ALT) Pending Alkaline Phosphatase Pending Total Protein Pending Albumin Pending Albumin/Globulin Ratio Pending EKG EKG [] Radiology/Procedures Radiology/Procedures [] Heart Score C/O Chest Pain: Yes HEART Score for Chest Pain: HEART Score for Chest Pain Response (Comments) Value History Highly Suspicious [address] Depression 2 Age > 65 2 Total 6 Risk Factors: Risk Factors: DM, Current or recent (<one month) smoker, HTN, HLP, family history of CAD, obesity. Risk Scores: Risk Factors: DM, Current or recent (<one month) smoker, HTN, HLP, family history of CAD, obesity. Course & Med Decision Making Course & Med Decision Making Patient is an 85-year-old female who presents with chest pain, with radiation to the left shoulder, neck and numbness tingling in left arm Vital signs notable for tachypnea and hypertension. Physical exam noted above. Patient given aspirin. Placed on the monitor with IV access established. Cardiac pads in place. EKG noted above and concerning for significant ischemic changes and possibly STEMI. Faxed to [facility] , as that is where patient follows with cardiology and had an ablation 4 days ago for atrial fibrillation Called cardiology/transfer line and discussed patient with them. Faxed over EKG. [facility] felt this is definitely abnormal but had a hard time saying if this was a STEMI due to pacer spikes falling on R wave but given her significant history, recent history and symptoms should start her on heparin and get her over to [facility] emergently. Discussed this with family who agreed with plan of transfer. Initial laboratory analysis not concerning. Initial troponin within normal limits. [] Dragon Disclaimer Dragon Disclaimer This electronic medical record was generated, in whole or in part, using a voice recognition dictation system. Departure Departure: Impression: Primary Impression: Acute chest pain Additional Impressions: Abnormal EKG A-fib Disposition: 02 DC/TRF OTHER SHORT TERM HOS Condition: STABLE Referrals: SHAHNAZ SALAZAR MD (PCP) Problem Qualifiers ELEONORA SANCHEZ MD Apr 26, 2020 04:00
--- NOTE | 2020-04-26 04:14 | EKG ---
[address] [address] Test Date: 2020-04-26 Test Time: 03:04:56 Pat Name: TREASURE CONTI Department: Room: Gender: F Engrosser: : 1935 Requested By: ELEONORA SANCHEZ Order Number: [id number] Reading MD: Measurements Intervals [place] Rate: 88 P: [place]: QRS: 159 QRSD: 114 T: -6 QT: 414 QTc: 505 Interpretive Statements IRREGULAR RHYTHM, NO P-WAVE FOUND ABNORMAL RIGHT AXIS DEVIATION LEFT POSTERIOR FASCICULAR BLOCK AMPLITUDE CRITERIA FOR LVH CONSIDER RIGHT VENTRICULAR HYPERTROPHY ST & T ABNORMALITY, CONSIDER INFERIOR ISCHEMIA OR LEFT VENTRICULAR STRAIN ABNORMAL ECG RI6.02 No previous ECG available for comparison
== END 2020-04-26 03:52 | disposition short-term general hospital (02) ==
LOC: ER 03:00
DX: R07.2 Precordial pain (principal); R94.31 Abnormal electrocardiogram [ECG] [EKG]; I48.91 Unspecified atrial fibrillation; M19.90 Unspecified osteoarthritis, unspecified site; I25.810 Atherosclerosis of coronary artery bypass graft(s) without angina pectoris; I11.0 Hypertensive heart disease with heart failure; I50.9 Heart failure, unspecified; K21.9 Gastro-esophageal reflux disease without esophagitis; E78.00 Pure hypercholesterolemia, unspecified; Z86.718 Personal history of other venous thrombosis and embolism; Z79.899 Other long term (current) drug therapy; Z87.891 Personal history of nicotine dependence; Z91.040 Latex allergy status; Z88.8 Allergy status to other drugs, medicaments and biological substances; Z88.1 Allergy status to other antibiotic agents
CPT/HCPCS: 36415; 80053; 84484; 85025; 85610; 85730; 93005; 96374; 99285; J1644

== ENCOUNTER 2020-06-08 22:38 | Inpatient (IN) | payer MEDICARE ==
[~2020-06-08] VITALS: Ht 165.1 cm; Wt 82.9 kg
--- NOTE | 2020-06-08 22:50 | PHYS DOC ---
Past History Past Medical History: Arthritis, CAD, CHF, DVT, GERD, Glaucoma, High Cholesterol, Heart Disease, Hypertension, Pneumonia, Other Past Surgical History: Appendectomy, Coronary Bypass Surgery, Hysterectomy, Knee Replacement, Pacemaker, Tonsillectomy, Other Additional Past Surgical Histo: cardioversion Smoking: Non-smoker Alcohol Use: None Drug Use: None General Adult HPI: HPI: ".. I am having trouble ... short of breath.. just can't seem to get better.. Dr. Mae recently upped my Bumex.. to 3 mg twice a day and my potassium to 30 twice a day.. but I still swollen in my legs.. and like I am in heart failure..." Patient is a 85 year old female who presents with complaints of increased dyspnea and leg swelling. Patient states she has had similar symptoms with episodes of CHF. Patient has history of multiple medical problems. Past medical history for coronary artery disease, GERD, heart block, hypertension, hyperlipidemia, pulmonary embolism, fall the myalgia rheumatica, uterine cancer, arthritis, anemia, elevated bilirubins, hypothyroidism, diabetes, dysrhythmia, A. fib, bronchitis, diverticulitis, renal insufficiency, and deconditioning. Patient has had significant problems with coronary artery disease and required coronary artery bypass, coronary artery stent placements, pacemaker placement, cardioversion dysrhythmias and myocardial perfusion studies. Patient has been compliant of her meds and is recently increased use of Bumex to attempt to reduce leg swelling and dyspnea felt to be due to his CHF. Patient normally follows with Dr.Mc Spencer, but also follows at cardiology. Patient's history is also significant for tonsil and adenoid ectomy, hysterectomy, subtotal colectomy, right and left knee surgeries and lumbar sacral back surgery. Review of Systems: Review of Systems: Constitutional: Denies fever or chills Eyes: Denies change in visual acuity HENT: Denies nasal congestion or sore throat Respiratory: Complains of cough and shortness of breath Cardiovascular: Complains of chest pain or discomfort. Complains of increased lower leg edema. GI: Denies abdominal pain, nausea, vomiting, bloody stools or diarrhea : Denies dysuria Musculoskeletal: History of chronic back pain or joint pain Integument: Denies rash Neurologic: Denies headache, focal weakness or sensory changes Endocrine: Denies polyuria or polydipsia Lymphatic: Denies swollen glands Psychiatric: Denies depression or anxiety Family History: Family History: Family history is positive for coronary artery disease in mother, her father had cancer and coronary and there is also coronary artery disease in her brother Current Medications: Current Meds: See nursing for home meds Allergies: Allergies: Allergies Coded Allergies Type Severity Reaction Last Updated Verified latex Allergy Severe Rash 04/26/20 Yes Edpnfic-Qbs-Mrp Reductase Inhibitor Allergy Intermediate muscle pain 04/26/20 No adhesive Allergy Intermediate RASH 04/26/20 No bacitracin Allergy Intermediate rash 04/26/20 No ezetimibe Allergy Intermediate muscle pain 04/26/20 No neomycin Allergy Intermediate rash 04/26/20 No polymyxin B Allergy Intermediate rash 04/26/20 No propoxyphene Allergy Intermediate HALLUCINATIONS 04/26/20 No Physical Exam: PE: Constitutional: Moderate acute distress, non-toxic appearance. [] HENT: Normocephalic, atraumatic, bilateral external ears normal, oropharynx moist, no oral exudates, nose normal. [] Eyes: PERRLA, EOMI, conjunctiva normal, no discharge. [] Neck: Normal range of motion, no tenderness, supple, no stridor. JVD in the sitting position Cardiovascular:Heart rate regular rhythm, no murmur, PMI to the left Lungs & Thorax: Bilateral breath sounds equal apex with scattered wheezing on auscultation [. Patient] bilateral basilar crackles. Pacer Abdomen: Bowel sounds normal, soft, no tenderness, no masses, no pulsatile masses. Obese. Old surgery scars. Skin: Warm, dry, no erythema, no rash. Poor turgor Back: No tenderness, no CVA tenderness. [] Extremities: No tenderness, no cyanosis, no clubbing, ROM intact, 2+ edema knees. Old surgery scars. No cording appreciated. Arthritic changes. Neurologic: Alert and oriented X 3, moves all extremities on request, does have distal sensory,, no gross focal deficits noted. [] Psychologic: Affect anxious, judgement normal, mood normal. [] EKG: EKG: My interpretation EKG shows a paced rhythm at 77 bpm. Right axis deviation particularly in inferior leads. No findings of acute STEMI or contralateral ch anges. Does have prolonged QT interval at 418 ms QTC is 475 ms. [] Does have findings of pacer spikes Radiology/Procedures: Radiology/Procedures: [][address] [address] IMAGING REPORT Signed PATIENT: DHEERAJ CONTI: [id number] : 1935 LOCATION: ER AGE: 85 SEX: F EXAM STATUS: REG ER ORD. PHYSICIAN: ABIODUN HUTCHINSON MD REASON: dyspnea, afib, chf PROCEDURE: CHEST AP ONLY INDICATION: Reason: dyspnea, afib, chf / Spl. Instructions: / History: COMPARISON: June 06, 2018 FINDINGS: Single view of chest obtained. Pacemaker is identified with 3 leads. Calcific atherosclerosis with surgical clips projecting over the mediastinum with poststernotomy changes. Mild interstitial and groundglass opacities bilaterally. Degenerative changes of the spine. IMPRESSION: * Mild interstitial and groundglass opacities bilaterally which could be from edema or infiltrate. Electronically signed by: Reyna Delgado MD (06/09/2020 12:12 AM) [id number] DICTATED AND SIGNED BY: REYNA DELGADO MD DATE: 06/09/20 0009 CC: ABIODUN HUTCHINSON MD; SHAHNAZ SALAZAR MD ~MTH0 0 Heart Score: C/O Chest Pain: Yes HEART Score for Chest Pain: HEART Score for Chest Pain Response (Comments) Value History Moderately Suspicious 1 ECG Nonspecific Repolarizatio 1 Age > 65 2 Risk Factors 1 or 2 Risk Factors 1 Troponin < Normal Limit 0 Total 5 Risk Factors: Risk Factors: DM, Current or recent (<one month) smoker, HTN, HLP, family history of CAD, obesity. Risk Scores: Score 0 - 3: 2.5% MACE over next 6 weeks - Discharge Home Score 4 - 6: 20.3% MACE over next 6 weeks - Admit for Clinical Observation Score 7 - 10: 72.7% MACE over next 6 weeks - Early Invasive Strategies Course & Med Decision Making: Course & Med Decision Making Pertinent Labs and Imaging studies reviewed. (See chart for details) Pt. request admit here. Discussed presentation, testing and tx. plan with Dr. Phipps, advised admit to his service- dx CHF Impression: 1. Exacerbation of CHF- BNP 9,358 2. Elevated Leukocytosis 16.5 3. Renal Insuf. BUN 56/Creat 2.0 4. DM- Elevated Glucose 151 5. Macrocytic and Hyperchromic indicies 6. Malnutrition Alb. 2.6 [] Marc Disclaimer: Marc Disclaimer: This electronic medical record was generated, in whole or in part, using a voice recognition dictation system. Departure Departure: Referrals: SHAHNAZ SALAZAR MD (PCP) Marc Disclaimer This chart was dictated in whole or in part using Voice Recognition software in a busy, high-work load, and often noisy Emergency Department environment. It may contain unintended and wholly unrecognized errors or omissions. ABIODUN HUTCHINSON MD June 08, 2020 22:50
[2020-06-08] MEDS ORDERED: IV RINGERS SOLUTION,LACTATED 1,000 ML IV SCH (23:00)
[2020-06-08] MEDS ORDERED: MORPHINE SULFATE 4 MG/ML DISP.SYRIN. ONE (23:10)
[2020-06-08] MEDS ORDERED: MORPHINE SULFATE 4 MG/ML DISP.SYRIN. IV ONE (23:15)
[2020-06-09] VITALS (21 sets, daily range): BP systolic 98–157; BP diastolic 7–112
--- NOTE | 2020-06-09 00:14 | RAD ---
INDICATION: Reason: dyspnea, afib, chf / Spl. Instructions: / History: COMPARISON: June 06, 2018 FINDINGS: Single view of chest obtained. Pacemaker is identified with 3 leads. Calcific atherosclerosis with surgical clips projecting over th e mediastinum with poststernotomy changes. Mild interstitial and groundglass opacities bilaterally. D egenerative changes of the spine. IMPRESSION: * Mild interstitial and groundglass opacities bilaterally which could be from edema or infiltrate. Electronically signed by: Derick Delgado MD (06/09/2020 12:12 AM) [id number]
[2020-06-09 00:37] LABS: BASO % 0 % (0-3); EOS % 0 % (0-3); HEMOGLOBIN 12.5 g/dL (12.0-15.5); LYMPH # 0.4 x10^3/uL (1.0-4.8); LYMPH % 3 % (24-48); MEAN CORPUSCULAR HEMOGLOBIN 36 pg (25-35); MEAN CORPUSCULAR HGB CONC 33 g/dL (31-37); MEAN CORPUSCULAR VOLUME 108 fL (79-100); MONO # 0.8 x10^3/uL (0.0-1.1); MONO % 5 % (0-9); NEUT # 15.2 x10^3uL (1.8-7.7); NEUT % 92 % (31-73); PLATELET COUNT 262 x10^3/uL (140-400); RED BLOOD COUNT 3.51 x10^6/uL (3.50-5.40); RED CELL DISTRIBUTION WIDTH 17.6 % (11.5-14.5); WHITE BLOOD COUNT 16.5 x10^3/uL (4.0-11.0)
[2020-06-09 01:03] LABS: % BANDS 1 % (0-9); % LYMPHS 2 % (24-48); % MONOS 1 % (0-10); % SEGS 96 % (35-66)
[2020-06-09 01:04] LABS: ANISOCYTOSIS PRESENT; HYPOCHROMIA PRESENT; PLT ESTIMATE ADEQUATE (ADEQUATE); POLYCHROMASIA PRESENT
[2020-06-09 01:16] LABS: BARBITURATES NEG (NEG); BENZODIAZEPINES NEG (NEG); CANNABINOIDS NEG (NEG); COCAINE NEG (NEG); METHADONE NEG (NEG); OPIATES POS (NEG); PHENCYCLIDINE NEG (NEG)
[2020-06-09 01:17] LABS: CALCIUM 9.9 mg/dL (8.5-10.1); GFR 23.7; POTASSIUM 4.2 mmol/L (3.5-5.1)
[2020-06-09 01:19] LABS: AMPHETAMINE/METHAMPHETAMINE NEG (NEG)
[2020-06-09 01:26] LABS: BILIRUBIN,URINE NEG (NEG); CLARITY,URINE HAZY; COLOR,URINE YELLOW; GLUCOSE,URINE NEG (NEG)
[2020-06-09 01:27] LABS: BACTERIA,URINE MANY /HPF (0-FEW); NITRITE,URINE NEG (NEG); SQUAMOUS EPITHELIAL CELL,UR FEW /LPF; UROBILINOGEN,URINE 0.2 mg/dL (0.2 mg/dL)
[2020-06-09 01:30] LABS: ALBUMIN 2.6 g/dL (3.4-5.0); DIRECT BILIRUBIN 1.6 mg/dL (0.0-0.2)
[2020-06-09] MEDS ORDERED: FUROSEMIDE 40 MG/4 ML VIAL IVP ONE (01:45)
[2020-06-09] MEDS ORDERED: AZITHROMYCIN 250 MG TABLET. PO ONE (01:45)
[2020-06-09] MEDS ORDERED: IV NORMAL SALINE 50ML 50 ML ONE (02:05)
[2020-06-09] MEDS ORDERED: cefTRIAXone SODIUM 1 GM VIAL ONE (02:06)
[2020-06-09] MEDS ORDERED: ACETAMINOPHEN 325 MG TABLET PO PRN (03:15)
[2020-06-09] MEDS ORDERED: ONDANSETRON PF 4 MG/2 ML VIAL. IVP PRN (03:15)
--- NOTE | 2020-06-09 03:33 | EKG ---
[facility] [address] [place] [address] Test Date: 2020-06-08 Test Time: 22:53:32 Pat Name: TREASURE CONTI Department: Room: Gender: F [employer] Assistant: KRISTI : 1935 Requested By: ABIODUN HUTCHINSON Order Number: [id number] Reading MD: Measurements Intervals [place] Rate: 77 P: 146 [place]: 74 QRS: 214 QRSD: 90 T: -42 QT: 418 QTc: 475 Interpretive Statements SINUS RHYTHM ABNORMAL RIGHT SUPERIOR AXIS DEVIATION T ABNORMALITY IN INFERIOR LEADS PROLONGED QT ABNORMAL ECG RI6.02 No previous ECG available for comparison
[2020-06-09] MEDS ORDERED: IPRATRPIUM/ALBUTEROL 0.5/2.5MG 3 ML NEBU. ONE (04:49)
[2020-06-09] MEDS ORDERED: MAG HYDROX/AL HYDROX/SIMETH 30 ML ORAL.SUSP PO PRN (05:15)
[2020-06-09] MEDS ORDERED: APIX2.5T PO (05:17)
[2020-06-09] MEDS ORDERED: BUME2TAB3 PO (05:22)
[2020-06-09] MEDS ORDERED: CALC500T31 PO (05:23)
[2020-06-09] MEDS ORDERED: LEVO75TA5 PO (05:31)
[2020-06-09] MEDS ORDERED: VITA10003 PO (05:39)
[2020-06-09] MEDS ORDERED: THIA50TA4 PO (05:41)
[2020-06-09] MEDS ORDERED: CYAN50009 PO (05:42)
[2020-06-09] MEDS ORDERED: PYRI50CA PO (05:42)
[2020-06-09] MEDS ORDERED: MULT-207 PO (05:45)
[2020-06-09] MEDS: MORPHINE SULFATE 2 MG/ML DISP.SYRIN. IV PRN ×2 (05:52→18:38)
[2020-06-09] MEDS ORDERED: NITROGLYCERIN SUBLINGUAL 0.4 MG BOTTLE OF 25. SL PRN (09:00)
[2020-06-09] MEDS ORDERED: BUMETANIDE 1 MG/4 ML VIAL. IVP SCH (09:00)
[2020-06-09] MEDS ORDERED: POTASSIUM CHLORIDE 10 MEQ TABLET.ER. PO SCH (09:00)
[2020-06-09 10:29] LABS: THYROID STIM HORMONE (TSH) 3.263 uIU/mL (0.358-3.740)
[2020-06-09] MEDS ORDERED: FUROSEMIDE 40 MG/4 ML VIAL ONE (10:37)
[2020-06-09] MEDS: DORZOLAMIDE 2% OPHTH SOLUTION 10ML BOTTLE. OU SCH ×2 (10:43→10:49)
[2020-06-09] MEDS: IPRATRPIUM/ALBUTEROL 0.5/2.5MG 3 ML NEBU. NEB SCH ×4 (10:43→21:19)
[2020-06-09] MEDS: OMEGA-3 FATTY ACIDS/FISH OIL 1,000 MG CAPSULE. PO SCH (10:43)
[2020-06-09] MEDS: LATANOPROST 0.005% OPHTH SOLUTION 2.5ML BOTTLE. OU SCH (10:43)
[2020-06-09] MEDS: PYRIDOXINE 50 MG TABLET. PO SCH (10:43)
[2020-06-09] MEDS: ISOSORBIDE MONONITRATE ER 30 MG TAB.ER.24H PO SCH (10:44)
[2020-06-09] MEDS: LEVOTHYROXINE 75 MCG TABLET PO SCH (10:44)
[2020-06-09] MEDS: CALCIUM CARBONATE 500 MG TABLET PO SCH ×2 (10:45→21:17)
[2020-06-09] MEDS: APIXABAN 2.5 MG TABLET PO SCH ×2 (10:45→21:18)
[2020-06-09] MEDS: METOPROLOL SUCC 24HR ER 25 MG TAB.ER.24H. PO SCH (10:45)
[2020-06-09] MEDS: AMIODARONE HCL 200 MG TABLET. PO SCH (10:46)
[2020-06-09] MEDS: ACETAMINOPHEN 500 MG TABLET PO SCH ×2 (10:46→21:18)
[2020-06-09] MEDS: MAGNESIUM OXIDE 400 MG TABLET PO SCH ×2 (10:47→21:18)
[2020-06-09] MEDS: THIAMINE 100 MG TABLET. PO SCH (10:47)
[2020-06-09] MEDS: ASPIRIN ENTERIC COATED 81 MG TABLET.DR. PO SCH (10:49)
--- NOTE | 2020-06-09 10:57 | HP ---
CHIEF COMPLAINT: Shortness of breath. HISTORY OF PRESENT ILLNESS: The patient is a pleasant 85-year-old female with multiple medical issues. She normally sees Dr. Gastelum at [facility]. She has known history of coronary artery disease with the previous 2 vessel bypass and graft 10 years ago. She has a second AV sequential pacemaker that has been placed. She was admitted with increasing shortness of breath, orthopnea, dyspnea with minimal exertion. Chest x-ray evidence of congestive heart failure with pleural effusions, cephalization and pleural infiltrate. She had her COVID shocks. She does not have any febrile illnesses. In the meantime, the . She was admitted then with acute on chronic congestive heart failure. Her initial diagnosis showed she has acute systolic and diastolic congestive heart failure. She denied any chest pain or palpitations. Her rhythm is paced at 75 per minute is an AV sequential pacemaker. PAST MEDICAL HISTORY: Significant for coronary artery disease. She had complications following her COVID injection. She has had a history of blood clots. She is on low dose Eliquis. She also has chronic low back pain and degenerative arthritis. She also has hypothyroidism and multiple eyedrops for glaucoma. ALLERGIES: She has several allergies including HMG-COA REDUCTASE INHIBITORS, which includes all other statins. She is also allergic to NEOMYCIN, LATEX, BACITRACIN AND DARVOCET, exact reaction is unclear. CURRENT MEDICATIONS: Include Tylenol, amiodarone, Eliquis, but only 2.5 mg b.i.d., aspirin, Alphagan eyedrops, calcium, cholecalciferol, vitamin B12, Trusopt eyedrops, Imdur, latanoprost eyedrops, Synthroid 75 mcg daily, metoprolol 25 mg daily, multivitamin, niacin, nitroglycerin, omega-3 fatty acids, Protonix, potassium supplementation, pyridoxine and Bumex. She tells me recently they switch her from oral Lasix to oral bumetanide. FAMILY HISTORY: Father was a physician. He at age 69 of esophageal cancer. Mom of complications of heart failure at age 79. SOCIAL HISTORY: She is recently . Her 6 months ago at age 89. She is a nonsmoker, nondrinker. REVIEW OF SYSTEMS: Significant for the increased fluid ingestion. She has had orthopnea. No fevers or chills. She has had dyspnea with minimal exertion. No nausea. No COVID exposure. No fevers. All other systems reviewed and turned to be negative. PHYSICAL EXAMINATION: GENERAL: I saw her, this is a very pleasant, alert female. VITAL SIGNS: Showed a blood pressure 114/97 mmHg, pulse is 77 and paced, temperature 98.6 degrees Fahrenheit, oxygen saturation 94% on 3 liters by nasal cannula. HEENT: Head is without trauma. Pupils are reactive. Sclerae nonicteric. Oropharynx clear. NECK: Veins were distended at 45 degrees. There is no stridor. LUNGS: Bibasilar rales. HEART: Showed distant heart tones. No obvious gallops. Peripheral pulses are palpable and full. ABDOMEN: Soft, scaphoid, nontender, no organomegaly. Bowel sounds are hypoactive. EXTREMITIES: Showed 2+ pitting edema extending up to her knees. NEUROLOGIC: Finding focally intact. SKIN: Warm and dry. PERTINENT LABORATORY STUDIES: The first set of cardiac enzymes were negative for coronary ischemia. Her sodium is 136, potassium 4.2 mEq, creatinine is 2.0 mg %. Nonfasting blood sugar 151. Her BMP is 9800. Chest x-ray and CT as noted, she has decompensation, permanent pacemaker and cardiomegaly. No blood clot identified. ASSESSMENT: An 85-year-old female with; 1. Acute on chronic congestive heart failure, both systolic and diastolic component. 2. Chronic kidney disease stage IV. 3. Coronary artery disease with previous bypass and graft. 4. Hypothyroidism, on replacement. 5. Permanent pacemaker with AV sequential pacemaker. PLAN: 1. Admit to the inpatient unit with telemetry monitoring. 2. Diuresis. We need to diurese her and limit her fluids to achieve a net loss of fluids. 3. Serial chemistries. 4. Potassium and magnesium replacement. 5. Given her known history of heart failure, she needs both preload and afterload reduction. She is not on an CURTIS inhibitor, and I suspect the reason is from chronic kidney disease. Therefore, we will institute the [facility] standby using isosorbide mononitrate and hydralazine, which is beneficial in patients with kidney failure. She is already on isosorbide mononitrate. I will add hydralazine and we will get serial chemistries. In addition, I will order twice a day furosemide with daily weights, 1200 mL fluid restriction and will get followup x-rays next week. Her prognosis is guarded. We also had a long discussion regarding her code status, she is alert. She wants to be a full code at this time and we will respect her wishes. BAIRON/MAEVE/ANTONIA DR: BAIRON/lee TID: [id number] CC: SHAHNAZ SALAZAR MD
[2020-06-09] MEDS: BRIMONIDINE 0.2% OPHTH SOLUTION 5ML BOTTLE. OU SCH ×2 (11:30→21:18)
[2020-06-09] MEDS: hydrALAZINE 25 MG TABLET PO SCH ×2 (14:00→21:18)
[2020-06-09] MEDS ORDERED: FUROSEMIDE 100 MG/10 ML VIAL IVP SCH (16:00)
[2020-06-09] MEDS: FUROSEMIDE 100 MG/10 ML VIAL IVP SCH (17:12)
[2020-06-09] MEDS: PANTOPRAZOLE 40 MG TABLET. PO SCH (18:00)
[2020-06-09] MEDS: POTASSIUM CHLORIDE 20 MEQ TABLET.ER. PO SCH (21:17)
[2020-06-10] VITALS (23 sets, daily range): BP systolic 94–129; BP diastolic 41–78
[2020-06-10] MEDS: PANTOPRAZOLE 40 MG TABLET. PO SCH ×2 (05:32→18:00)
[2020-06-10] MEDS: LEVOTHYROXINE 75 MCG TABLET PO SCH (05:32)
[2020-06-10 06:24] LABS: BASO % 0 % (0-3); EOS % 0 % (0-3); HEMATOCRIT 36.5 % (36.0-47.0); LYMPH # 0.5 x10^3/uL (1.0-4.8); LYMPH % 3 % (24-48); MEAN CORPUSCULAR HEMOGLOBIN 36 pg (25-35); MEAN CORPUSCULAR HGB CONC 33 g/dL (31-37); MEAN CORPUSCULAR VOLUME 108 fL (79-100); MONO # 0.8 x10^3/uL (0.0-1.1); MONO % 4 % (0-9); NEUT # 16.8 x10^3uL (1.8-7.7); NEUT % 93 % (31-73); PLATELET COUNT 201 x10^3/uL (140-400); RED BLOOD COUNT 3.37 x10^6/uL (3.50-5.40); RED CELL DISTRIBUTION WIDTH 15.8 % (11.5-14.5); WHITE BLOOD COUNT 18.1 x10^3/uL (4.0-11.0)
[2020-06-10 06:30] LABS: CALCIUM 10.1 mg/dL (8.5-10.1); CREATININE 1.8 mg/dL (0.6-1.0); GFR 26.7; POTASSIUM 4.6 mmol/L (3.5-5.1)
[2020-06-10] MEDS: IPRATRPIUM/ALBUTEROL 0.5/2.5MG 3 ML NEBU. NEB SCH ×3 (08:51→20:28)
[2020-06-10] MEDS: FUROSEMIDE 100 MG/10 ML VIAL IVP SCH ×2 (08:52→16:00)
[2020-06-10] MEDS: DORZOLAMIDE 2% OPHTH SOLUTION 10ML BOTTLE. OU SCH ×2 (09:00→20:35)
[2020-06-10] MEDS: APIXABAN 2.5 MG TABLET PO SCH ×2 (09:00→20:36)
[2020-06-10] MEDS: PYRIDOXINE 50 MG TABLET. PO SCH (09:00)
[2020-06-10] MEDS: MAGNESIUM OXIDE 400 MG TABLET PO SCH ×2 (09:00→20:36)
[2020-06-10] MEDS: AMIODARONE HCL 200 MG TABLET. PO SCH (09:00)
[2020-06-10] MEDS: BRIMONIDINE 0.2% OPHTH SOLUTION 5ML BOTTLE. OU SCH ×2 (09:00→20:36)
[2020-06-10] MEDS: ISOSORBIDE MONONITRATE ER 30 MG TAB.ER.24H PO SCH (09:04)
[2020-06-10] MEDS: METOPROLOL SUCC 24HR ER 25 MG TAB.ER.24H. PO SCH (09:05)
[2020-06-10] MEDS: POTASSIUM CHLORIDE 20 MEQ TABLET.ER. PO SCH ×2 (09:05→20:36)
[2020-06-10] MEDS: CALCIUM CARBONATE 500 MG TABLET PO SCH ×2 (09:05→20:36)
[2020-06-10] MEDS: OMEGA-3 FATTY ACIDS/FISH OIL 1,000 MG CAPSULE. PO SCH (09:05)
[2020-06-10] MEDS: THIAMINE 100 MG TABLET. PO SCH (09:09)
[2020-06-10] MEDS: ASPIRIN ENTERIC COATED 81 MG TABLET.DR. PO SCH (09:09)
[2020-06-10] MEDS: ACETAMINOPHEN 500 MG TABLET PO SCH ×2 (09:10→20:37)
[2020-06-10] MEDS: hydrALAZINE 25 MG TABLET PO SCH ×3 (09:10→20:36)
[2020-06-10] MEDS: MORPHINE SULFATE 2 MG/ML DISP.SYRIN. IV PRN ×2 (09:11→20:38)
[2020-06-10] MEDS: HYDROcodone/CHLORPHEN POLIS 5 ML SUS.ER.12H PO PRN ×2 (09:49→20:36)
[2020-06-10] MEDS: LATANOPROST 0.005% OPHTH SOLUTION 2.5ML BOTTLE. OU SCH (20:36)
[2020-06-11] VITALS (23 sets, daily range): BP systolic 94–138; BP diastolic 41–61
[2020-06-11] MEDS: IPRATRPIUM/ALBUTEROL 0.5/2.5MG 3 ML NEBU. NEB SCH ×3 (05:20→20:21)
[2020-06-11] MEDS: LEVOTHYROXINE 75 MCG TABLET PO SCH (05:48)
[2020-06-11] MEDS: PANTOPRAZOLE 40 MG TABLET. PO SCH ×2 (05:48→09:14)
[2020-06-11 06:33] LABS: CALCIUM 10.2 mg/dL (8.5-10.1); CREATININE 1.6 mg/dL (0.6-1.0); GFR 30.6; POTASSIUM 4.3 mmol/L (3.5-5.1)
[2020-06-11] MEDS: MAGNESIUM OXIDE 400 MG TABLET PO SCH ×2 (09:00→20:37)
[2020-06-11] MEDS: BRIMONIDINE 0.2% OPHTH SOLUTION 5ML BOTTLE. OU SCH ×2 (09:00→21:19)
--- NOTE | 2020-06-11 09:01 | RAD ---
EXAM: CHEST 1 VIEW History: Congestive heart failure COMPARISON: 06/08/2020 TECHNIQUE: Single portable radiograph of the chest FINDINGS: Mild cardiomegaly. Left-sided cardiac pacer is identified. Mild increase in bilateral inte rstitial lung markings with patchy airspace opacities in the bilateral lungs likely infiltrates. IMPRESSION: 1. Mild congestive changes. 2. Patchy airspace opacities in the bilateral lungs likely infiltrates. Electronically signed by: Connor Sullivan MD (06/11/2020 8:58 AM) [id number]
[2020-06-11] MEDS: FUROSEMIDE 100 MG/10 ML VIAL IVP SCH ×2 (09:12→15:20)
[2020-06-11] MEDS: ASPIRIN ENTERIC COATED 81 MG TABLET.DR. PO SCH (09:13)
[2020-06-11] MEDS: ACETAMINOPHEN 500 MG TABLET PO SCH ×2 (09:13→20:35)
[2020-06-11] MEDS: METOPROLOL SUCC 24HR ER 25 MG TAB.ER.24H. PO SCH (09:13)
[2020-06-11] MEDS: OMEGA-3 FATTY ACIDS/FISH OIL 1,000 MG CAPSULE. PO SCH (09:13)
[2020-06-11] MEDS: POTASSIUM CHLORIDE 20 MEQ TABLET.ER. PO SCH ×2 (09:14→20:36)
[2020-06-11] MEDS: ISOSORBIDE MONONITRATE ER 30 MG TAB.ER.24H PO SCH (09:14)
[2020-06-11] MEDS: CALCIUM CARBONATE 500 MG TABLET PO SCH ×2 (09:14→20:36)
[2020-06-11] MEDS: THIAMINE 100 MG TABLET. PO SCH (09:15)
[2020-06-11] MEDS: AMIODARONE HCL 200 MG TABLET. PO SCH (09:15)
[2020-06-11] MEDS: hydrALAZINE 25 MG TABLET PO SCH ×3 (09:15→20:36)
[2020-06-11] MEDS: PYRIDOXINE 50 MG TABLET. PO SCH (09:16)
[2020-06-11] MEDS: HYDROcodone/CHLORPHEN POLIS 5 ML SUS.ER.12H PO PRN ×2 (09:16→20:35)
[2020-06-11] MEDS: APIXABAN 2.5 MG TABLET PO SCH ×2 (09:16→20:36)
[2020-06-11] MEDS: DORZOLAMIDE 2% OPHTH SOLUTION 10ML BOTTLE. OU SCH ×2 (09:22→20:43)
--- NOTE | 2020-06-11 09:33 | PN ---
DATE: 06/10/2020 ATTENDING PHYSICIAN: Dr. Phipps SUBJECTIVE: The patient remains very weak. She has significant dyspnea with very minimal exertion. She has a very dry nonproductive cough. There are no fevers. Her blood pressure is stable at 127 mmHg. OBJECTIVE FINDINGS: VITAL SIGNS: Blood pressure this morning is 127/61 mmHg, pulse is 70 and paced, oxygen saturation 93% on 4 liters by nasal cannula. She is afebrile. HEENT: Head is without trauma. Pupils are reactive. Sclerae nonicteric. Venous pressure distended at 45 degrees. LUNGS: Bibasilar rales. CARDIOVASCULAR: Showed distant heart tones. Paced rhythm, no gallops or murmurs identified. ABDOMEN: Soft, scaphoid, hypoactive bowel sounds. EXTREMITIES: Show 2+ pitting edema. NEUROLOGIC: Neurologic finding focally intact. SKIN: Warm and dry. PERTINENT LABORATORY DATA: This morning, her hemoglobin was 12.0 g/dL, white count is 18,000. Electrolytes: Sodium 135 mEq, potassium 4.6 mEq, creatinine is improved from 2.0 down to 1.8 mg/dL. Three sets of troponins have been negative for coronary ischemia. Transaminases were normal. Cholesterol was 138. TSH was normal. ASSESSMENT: 1. This 85-year-old female has zwgmp-sd-wxbcyov systolic and diastolic heart failure. 2. Ischemic cardiomyopathy. 3. Permanent pacemaker with AV sequential pacemaker. 4. Chronic kidney disease stage IV with improved creatinine. 5. Generalized debilitation. 6. Nonproductive cough due to cardiac asthma. 7. Known coronary artery disease with previous bypass and graft. 8. Hypothyroidism, on replacement. PLAN: 1. Continue diuresis. 2. Continue afterload reduction with scheduled hydralazine. She is not on an CURTIS inhibitor due to renal function. 3. P.r.n. Tussionex for cough. 4. Serial chemistries. 5. Daily weights. 6. Fluid restriction. 7. Her prognosis remains guarded. I will try to contact the family, there was talk about transferring her to [facility] that still may be an option. BAIRON/SHANA/PERRY DR: BAIRON/lee TID: [id number] CC: MARIE CHRISTIE
[2020-06-11] MEDS: MORPHINE SULFATE 2 MG/ML DISP.SYRIN. IV PRN (19:31)
[2020-06-11] MEDS: LATANOPROST 0.005% OPHTH SOLUTION 2.5ML BOTTLE. OU SCH (20:35)
[2020-06-12] VITALS (24 sets, daily range): BP systolic 92–130; BP diastolic 40–83
--- NOTE | 2020-06-12 00:21 | PN ---
DATE: 06/11/2020 ATTENDING PHYSICIAN: Dr. Phipps SUBJECTIVE: The patient is calmer. Cough is improved. She is less dyspneic; however, she still gets short of breath with exertion. She slept better. She has no new complaints. OBJECTIVE FINDINGS: VITAL SIGNS: Blood pressure this morning is 138/51, pulse is 73 and regular. She is afebrile. Oxygen saturation 91% on 5 liters by nasal cannula. HEENT: Head is without trauma. Pupils are reactive. Sclerae nonicteric. Oropharynx is clear. NECK: Supple. No stridor. LUNGS: Still has bibasilar crackles. CARDIOVASCULAR: Showed distant tones. No obvious gallops. Peripheral pulses are palpable and full. ABDOMEN: Soft, obese, protuberant. Normoactive bowel sounds. EXTREMITIES: Showed 2+ edema still extending to her thighs. SKIN: Otherwise, warm and dry. PERTINENT LABORATORY DATA: Her coronavirus swab was reported as negative. Potassium 4.3 mEq, creatinine paradoxically improved to 1.6 mg/dL, admission it was 2.0, yesterday it was 1.8 mg/dL. Cardiac enzymes are negative for coronary ischemia. Followup chest x-ray done as a portable film shows bilateral pleural effusions and vascular congestion still not resolved yet. No new infiltrates identified. ASSESSMENT: 1. An 85-year-old female with acute on chronic congestive heart failure, improving with diuresis. Her weight is down several pounds since admission. 2. Permanent pacemaker with AV sequential pacemaker. 3. Chronic kidney disease stage III. 4. Anatomic findings, she has significant tricuspid regurgitation contributing to right-sided edema. 5. Nonproductive cough due to cardiac asthma. 6. Known coronary artery disease with previous bypass and graft. 7. Hypothyroidism, on replacement. PLAN: 1. Continue diuresis 80 IV b.i.d. as scheduled. 2. Continue afterload reduction with hydralazine as well as preload reduction. 3. P.r.n. Tussionex. 4. Serial chemistries. 5. Daily weights. Her weight today is 176 pounds. I contacted her cardiology heart failure clinic nurse, her dry weight is somewhere around 170 pounds. 6. Fluid restriction. 7. Prognosis remains guarded. I did have a chance to contact Dr. Hector Gastelum, her complaint clerk. She agrees with the plan of care and encouraged her to stay at [place]. There is no need at this time for transfer to [facility]. BAIRON/SHANA DR: Jamey TID: [id number] CC: SHAHNAZ SALAZAR MD
[2020-06-12] MEDS: MORPHINE SULFATE 2 MG/ML DISP.SYRIN. IV PRN (04:39)
[2020-06-12] MEDS: IPRATRPIUM/ALBUTEROL 0.5/2.5MG 3 ML NEBU. NEB SCH ×3 (05:12→21:26)
[2020-06-12] MEDS: PANTOPRAZOLE 40 MG TABLET. PO SCH ×2 (05:25→18:00)
[2020-06-12] MEDS: LEVOTHYROXINE 75 MCG TABLET PO SCH (05:25)
[2020-06-12 06:22] LABS: CALCIUM 10.1 mg/dL (8.5-10.1); CREATININE 1.7 mg/dL (0.6-1.0); GFR 28.6
[2020-06-12] MEDS: FUROSEMIDE 100 MG/10 ML VIAL IVP SCH ×2 (09:00→13:47)
[2020-06-12] MEDS: PYRIDOXINE 50 MG TABLET. PO SCH (09:00)
[2020-06-12] MEDS: MAGNESIUM OXIDE 400 MG TABLET PO SCH ×2 (09:00→21:00)
[2020-06-12] MEDS: POTASSIUM CHLORIDE 20 MEQ TABLET.ER. PO SCH ×3 (09:00→21:07)
[2020-06-12] MEDS: OMEGA-3 FATTY ACIDS/FISH OIL 1,000 MG CAPSULE. PO SCH (09:00)
[2020-06-12] MEDS: CALCIUM CARBONATE 500 MG TABLET PO SCH ×3 (09:00→21:06)
[2020-06-12] MEDS: HYDROcodone/CHLORPHEN POLIS 5 ML SUS.ER.12H PO PRN (11:43)
[2020-06-12] MEDS: DORZOLAMIDE 2% OPHTH SOLUTION 10ML BOTTLE. OU SCH ×2 (12:09→20:31)
[2020-06-12] MEDS: ISOSORBIDE MONONITRATE ER 30 MG TAB.ER.24H PO SCH (12:10)
[2020-06-12] MEDS: ASPIRIN ENTERIC COATED 81 MG TABLET.DR. PO SCH (12:10)
[2020-06-12] MEDS: METOPROLOL SUCC 24HR ER 25 MG TAB.ER.24H. PO SCH (12:11)
[2020-06-12] MEDS: THIAMINE 100 MG TABLET. PO SCH (12:11)
[2020-06-12] MEDS: APIXABAN 2.5 MG TABLET PO SCH ×2 (12:11→21:07)
[2020-06-12] MEDS: hydrALAZINE 25 MG TABLET PO SCH ×3 (12:12→21:06)
[2020-06-12] MEDS: ACETAMINOPHEN 500 MG TABLET PO SCH ×3 (12:12→21:06)
[2020-06-12] MEDS: AMIODARONE HCL 200 MG TABLET. PO SCH (12:12)
[2020-06-12] MEDS: BRIMONIDINE 0.2% OPHTH SOLUTION 5ML BOTTLE. OU SCH ×2 (12:14→20:32)
[2020-06-12] MEDS: PIPERACILLIN/TAZOBACTAM 2.25 GM in IV NORMAL SALINE 50ML 50 ML IV SCH ×2 (13:47→21:07)
--- NOTE | 2020-06-12 15:24 | RAD ---
US BILATERAL LOWEREXTREMITY VENOUS DOPPLER History: Reason: swollen lower extremities Rt more than Lt / Spl. Instructions: / History: Comparison: None. Discussion: Multiple longitudinal and transverse high resolution real-time images of the venous system of bilater al lower extremity were obtained with color and Doppler sampling. The common femoral, superficial fem oral, popliteal and proximal calf veins are all patent and demonstrate normal flow and compressibilit y. Normal respiratory phasicity and augmentation is present. Bilateral lower extremity subcutaneous edema, right greater than left. Impression: 1. No evidence of deep vein thrombosis. Electronically signed by: Real Garcia DO (06/12/2020 3:21 PM) [id number]
[2020-06-12] MEDS: LATANOPROST 0.005% OPHTH SOLUTION 2.5ML BOTTLE. OU SCH (20:31)
[2020-06-12] MEDS: LACTOBACILLUS RHAMNOSUS GG 1 CAPSULE. PO SCH ×2 (21:00→21:06)
[2020-06-12] MEDS: LINEZOLID 600 MG TABLET PO SCH (21:07)
[2020-06-13] VITALS (16 sets, daily range): BP systolic 91–130; BP diastolic 41–56
--- NOTE | 2020-06-13 01:03 | PN ---
DATE: 06/12/2020 SUBJECTIVE: The patient is an 85-year-old female patient who was admitted on 06/09 with recurrent bouts of cough, shortness of breath and apparently acute hypoxic respiratory failure as well as orthopnea. The patient did not offer any chest pain. Her cough is mostly dry and was evaluated in the emergency room of [facility] and her chest x-ray showed that the patient has mild interstitial and ground glass opacities bilaterally, which could be from edema or infiltrate. She has leukocytosis with a white cell count of 16,500 initially that has increased to 18,000 two days ago and her COVID-19 PCR was not detectable. D-dimer was slightly elevated at 0.62 and her chemistry showed that she has also chronic kidney disease with a BNP of 9358. Cardiac enzymes were less than 0.017. In fact, she had 3 sets of cardiac enzymes that ruled out myocardial infarction and has been treated with IV Lasix at 80 mg IV twice a day. She apparently desaturates dramatically on ambulation. She continued to have dry hacking cough that has been constant. She is on apixaban 2.5 mg twice a day for a clot that her daughter and the patient herself does not know where. PHYSICAL EXAMINATION: GENERAL: When I saw her this afternoon, she looked pale, but no jaundice, cyanosis, no lymphadenopathy, no thyromegaly, no jugular venous distention, but bilateral lower extremity edema, more so on the right than left. VITAL SIGNS: Heart rate was 72, blood pressure is 112/62, temperature was 97.7, respiratory rate was 20 and oxygen saturation was 94% on 5 liters of oxygen. HEENT: Normocephalic, atraumatic. NECK: Supple. HEART: Showed normal first and second heart sounds, no gallop, rub or murmur. CHEST: Shows central trachea, equal bilateral chest expansion, air entry. Coarse crepitation on both sides posteriorly. I could not appreciate any rhonchi. ABDOMEN: Distended, soft, nontender. NEUROLOGIC: She was awake, alert, responding appropriately. All cranial nerves intact. She moves extremities without difficulty. Examination of the extremities showed no clubbing, cyanosis, but bilateral lower extremity edema, more so on the right than left. Her intake over the last 24 hours was 1270, output was 1950. LABORATORY DATA: Her lab work as of this morning showed sodium 133, potassium 5, chloride was 98, bicarbonate 25, anion gap of 10, BUN 68, creatinine 1.7. Estimated GFR was 28 mL per minute. Her glucose 118, calcium was 10. Her most recent white cell count was 18,000, hemoglobin 12, hematocrit 36, MCV 108 and platelet count of 201,000. Her prothrombin time was 12, INR 1.2, APTT was 30 and D-dimer was 0.61. Urinalysis showed 11-20 rbc's, 1-4 wbc's, many bacteria. Her COVID-19 by PCR was negative and her tox screen was positive for opiates, but negative for all other drugs. Her chest x-ray yesterday showed that the patient has mild congestive changes and patchy airspace opacities in the bilateral lungs, likely infiltrate. ASSESSMENT: 1. In summary, this is an 85-year-old female patient with probably acute on chronic diastolic/systolic congestive heart failure, 2. 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 3. She is known to have paroxysmal atrial fibrillation. However, right ventricular pacing. 4. She has acute on chronic kidney injury. Her creatinine actually has improved. 5. Hypertension that seems to be well controlled, hyperlipidemia, coronary artery disease, previous coronary artery bypass graft surgery. PLAN: Given that she has these infiltrates and her urine culture has grown more than 100,000 colony forming units per mL of gram-negative rods identified as Klebsiella pneumoniae, I will start her on Zosyn and Zyvox. I will also continue with IV Lasix. We will order a venous Doppler ultrasound of her right lower extremity and consult the cardiology team to assist with management as well as the speech therapist. I will also check her thyroid function and was wondering also whether amiodarone toxicity might be playing a role in her lung injury. DEA DR: Rayo TID: [id number]
[2020-06-13] MEDS: LEVOTHYROXINE 75 MCG TABLET PO SCH (06:18)
[2020-06-13] MEDS: PIPERACILLIN/TAZOBACTAM 2.25 GM in IV NORMAL SALINE 50ML 50 ML IV SCH ×2 (06:18→14:00)
[2020-06-13] MEDS: PANTOPRAZOLE 40 MG TABLET. PO SCH (06:18)
[2020-06-13 06:49] LABS: ALBUMIN 1.9 g/dL (3.4-5.0); ALBUMIN/GLOBULIN RATIO 0.4 (1.0-1.7); CALCIUM 9.8 mg/dL (8.5-10.1); CREATININE 1.8 mg/dL (0.6-1.0); GFR 26.7; POTASSIUM 5.2 mmol/L (3.5-5.1); TOTAL PROTEIN 6.3 g/dL (6.4-8.2)
[2020-06-13 06:54] LABS: HEMATOCRIT 34.1 % (36.0-47.0); HEMOGLOBIN 11.4 g/dL (12.0-15.5); RED BLOOD COUNT 3.2 x10^6/uL (3.50-5.40); RED CELL DISTRIBUTION WIDTH 15.5 % (11.5-14.5); WHITE BLOOD COUNT 14.5 x10^3/uL (4.0-11.0)
[2020-06-13] MEDS: IPRATRPIUM/ALBUTEROL 0.5/2.5MG 3 ML NEBU. NEB SCH ×2 (07:53→11:30)
--- NOTE | 2020-06-13 08:36 | PDOC2 ---
CARDIAC CONSULT DATE OF CONSULT DOS: DATE: 06/13/20 TIME: 08:10 REASON FOR CONSULT Reason for Consult Acute on chronic CHF REFERRING PHYSICIAN Referring Physician Dr. Corbett SOURCE Source: Chart review, Patient HPI History of Present Illness This is an 85 yo female who presented secondary to shortness of breath and LE edema. Primary care provider recently increase her oral Bumex to 3mg BID, but patient continue to has shortness of breath and LE edema. She denies any chest pain, palpitations, dizziness, diaphoresis, or nausea/vomiting. Is short of breath at rest. Does not wear O2 at home and is presently on 6LNC with oxygen saturation in the low 90's. Has not had clinical improvement despite IV diuresis since admission to the hospital. Extensive cardiac history as noted below. Follow[place]. Gastelum [place] [facility] PAST MEDICAL HISTORY Cardiovascular: AFIB, CAD, CHF (ISM- LVEF recovered ), HTN, hyperipidemia, Other (severe tricuspid regurgitation.) Pulmonary: Pulmonary embolus GI: GERD Heme/Onc: Cancer (uterine, ovarian ) Musculoskeletal: Osteoarthritis Renal/: Chronic renal insuff Endocrine: Hypothyroidism PAST SURGICAL HISTORY Past Surgical History appendectomy, CABG, Tonsillectomy, Hysterectomy, Pacemaker, right knee replacement FAMILY HISTORY Family History: Heart Disease, High Cholestrol, Hypertension SOCIAL HISTORY Smoke: No ALCOHOL: none Drugs: None Lives: with Family CURRENT MEDICATIONS Current Medications Current Medications Lactated Ringer's 1,000 ml @ 100 mls/hr Q10H IV Last administered on 06/08/20at 23:43; Start 06/08/20 at 23:00; Stop 06/09/20 at 08:59; Status DC Morphine Sulfate (Morphine 4mg Syringe) 4 mg STK-MED ONCE .ROUTE ; Start 06/08/20 at 23:10; Stop 06/08/20 at 23:11; Status DC Morphine Sulfate (Morphine 4mg Syringe) 4 mg 1X ONCE IV Last administered on 06/08/20at 23:42; Start 06/08/20 at 23:15; Stop 06/08/20 at 23:17; Status DC Furosemide (Lasix) 40 mg 1X ONCE IVP Last administered on 06/09/20at 02:13; Start 06/09/20 at 01:45; Stop 06/09/20 at 01:46; Status DC Bumetanide (Bumex) 3 mg BID92 IVP ; Start 06/09/20 at 09:00; Stop 06/09/20 at 10:28; Status DC Ceftriaxone Sodium 1 gm/ Sodium Chloride 50 ml @ 100 mls/hr 1X ONCE IV Last administered on 06/09/20at 02:14; Start 06/09/20 at 01:45; Stop 06/09/20 at 02:14; Status DC Azithromycin (Zithromax) 500 mg 1X ONCE PO Last administered on 06/09/20at 02:13; Start 06/09/20 at 01:45; Stop 06/09/20 at 01:47; Status DC Sodium Chloride 50 ml @ As Directed STK-MED ONCE .ROUTE ; Start 06/09/20 at 02:05; Stop 06/09/20 at 02:06; Status DC Ceftriaxone Sodium (Rocephin) 1 gm STK-MED ONCE .ROUTE ; Start 06/09/20 at 02:06; Stop 06/09/20 at 02:06; Status DC Ondansetron HCl (Zofran) 4 mg PRN Q4HRS PRN IVP NAUSEA/VOMITING; Start 06/09/20 at 03:15; Stop 06/10/20 at 03:14; Status DC Acetaminophen (Tylenol) 650 mg PRN Q4HRS PRN PO FEVER > 100.3'F; Start 06/09/20 at 03:15; Stop 06/09/20 at 09:33; Status DC Albuterol/ Ipratropium (Duoneb) 3 ml RTQID NEB Last administered on 06/10/20at 08:51; Start 06/09/20 at 08:00; Stop 06/10/20 at 07:59; Status DC Albuterol/ Ipratropium (Duoneb) 3 ml STK-MED ONCE .ROUTE ; Start 06/09/20 at 04:49; Stop 06/09/20 at 04:50; Status DC Morphine Sulfate (Morphine 2mg Syringe) 2 mg PRN Q4HRS PRN IV PAIN Last administered on 06/12/20at 04:39; Start 06/09/20 at 05:15 Al Hydroxide/Mg Hydroxide (Mylanta Plus Xs) 30 ml PRN Q2HR PRN PO DYSPEPSIA Last administered on 06/09/20at 05:51; Start 06/09/20 at 05:15 Acetaminophen (Tylenol) 1,000 mg BID PO Last administered on 06/12/20 12:12; Start 06/09/20 at 09:00 Amiodarone HCl (Cordarone) 200 mg DAILY PO Last administered on 06/12/20 12:12; Start 06/09/20 at 09:00 Apixaban (Eliquis) 2.5 mg BID PO Last administered on 06/12/20 21:07; Start 06/09/20 at 09:00 Aspirin (Aspirin Enteric Coated) 81 mg DAILY PO Last administered on 06/12/20 12:10; Start 06/09/20 at 09:00 Calcium Carbonate/ Glycine (Oscal) 1,000 mg BID PO Last administered on 06/11/20 20:36; Start 06/09/20 at 09:00 Dorzolamide HCl (Trusopt) 1 drop BID OU Last administered on 06/12/20 20:31; Start 06/09/20 at 09:00 Latanoprost (Xalatan) 1 drop QHS OU Last administered on 06/12/20 20:31; Start 06/09/20 at 21:00 Levothyroxine Sodium (Synthroid) 75 mcg DAILY06 PO Last administered on 06/13/20 06:18; Start 06/09/20 at 09:00 Magnesium Oxide (Magnesium Oxide) 400 mg BID PO Last administered on 06/12/20 09:00; Start 06/09/20 at 09:00 Metoprolol Succinate (Toprol Xl) 25 mg DAILY PO Last administered on 06/12/20 12:11; Start 06/09/20 at 09:00 Nitroglycerin (Nitrostat) 0.4 mg PRN 1X PRN SL chest pain; Start 06/09/20 at 09:00 Fish Oil (Fish Oil) 2,000 mg DAILY PO Last administered on 06/11/20 09:13; Start 06/09/20 at 09:00 Pantoprazole Sodium (Protonix) 40 mg BID66 PO Last administered on 06/13/20 06:18; Start 06/09/20 at 18:00 Potassium Chloride (Klor-Con) 30 meq BID PO ; Start 06/09/20 at 09:00; Stop 06/09/20 at 10:15; Status DC Brimonidine Tartrate (Alphagan) 1 drop BID OU Last administered on 06/12/20 20:32; Start 06/09/20 at 09:00 Isosorbide Mononitrate (Imdur) 30 mg DAILY PO Last administered on 06/12/20 12:10; Start 06/09/20 at 09:00 Pyridoxine HCl (Vitamin B-6) 50 mg DAILY PO Last administered on 06/11/20 09:16; Start 06/09/20 at 09:00 Thiamine HCl (Vitamin B-1) 50 mg DAILY PO Last administered on 06/12/20 12:11; Start 06/09/20 at 09:00 Hydralazine HCl (Apresoline) 25 mg TID PO Last administered on 06/12/20 21:06; Start 06/09/20 at 14:00 Furosemide (Lasix) 80 mg BID94 IVP Last administered on 06/09/20at 10:48; Start 06/09/20 at 16:00; Stop 06/09/20 at 11:34; Status DC Potassium Chloride (Klor-Con) 20 meq BID PO Last administered on 06/11/20 20:36; Start 06/09/20 at 21:00 Furosemide (Lasix) 40 mg STK-MED ONCE .ROUTE ; Start 06/09/20 at 10:37; Stop 06/09/20 at 10:37; Status DC Furosemide (Lasix) 80 mg BID94 IVP Last administered on 06/12/20 13:47; Start 06/09/20 at 16:00; Stop 06/12/20 at 18:54; Status DC Chlorphenir/ Hydrocodone Polistirex (Tussionex) 5 ml PRN Q12HR PRN PO COUGH Last administered on 06/12/20 11:43; Start 06/10/20 at 09:00; Stop 06/12/20 at 13:14; Status DC Albuterol/ Ipratropium (Duoneb) 3 ml TID NEB Last administered on 06/12/20 21:26; Start 06/10/20 at 14:00 Ceftriaxone Sodium 1 gm/ Sodium Chloride 50 ml @ 100 mls/hr 1X ONCE IV Last administered on 06/10/20 12:16; Start 06/10/20 at 12:15; Stop 06/10/20 at 12:44; Status DC Piperacillin Sod/ Tazobactam Sod 2.25 gm/Sodium Chloride 50 ml @ 100 mls/hr Q8HRS IV Last administered on 06/13/20at 06:18; Start 06/12/20 at 14:00 Linezolid (Zyvox) 600 mg BID PO Last administered on 06/12/20at 21:07; Start 06/12/20 at 21:00 Guaifenesin (Mucinex Er) 600 mg BID PO Last administered on 06/12/20at 21:06; Start 06/12/20 at 21:00 Lactobacillus Rhamnosus (Culturelle) 1 cap BID PO ; Start 06/12/20 at 21:00 Furosemide (Lasix) 80 mg DAILY IVP ; Start 06/13/20 at 09:00 Active Scripts Active Reported Multi Complete-Iron Tablet (Multivitamin/Iron/Folic Acid) 1 Each Tablet 1 Each PO DAILY Vitamin B12 (Cyanocobalamin (Vitamin B-12)) 5,000 Mcg Tab.rapdis 1 Tab PO DAILY 30 Days Vitamin B-6 (Pyridoxine Hcl) 50 Mg Capsule 1 Cap PO DAILY 30 Days Vitamin B-1 (Thiamine Hcl) 50 Mg Tablet 1 Tab PO DAILY 30 Days Vitamin A 10,000 Unit Capsule 8,000 Mcg PO DAILY Levothyroxine Sodium 75 Mcg Tablet 1 Tab PO DAILY06 Calcium Carbonate 500 Mg Tablet 2 Tab PO BID 30 Days Bumetanide 2 Mg Tablet 3 Mg PO BID PRN Eliquis (Apixaban) 2.5 Mg Tablet 2.5 Mg PO BID Amiodarone Hcl 200 Mg Tablet 200 Mg PO DAILY Biofreeze (Menthol) 118 Ml Gel..ml. 118 Ml TP PRN BID PRN Mag-Oxide (Magnesium Oxide) 400 Mg Tablet 1 Tab PO BID Isosorbide Mononitrate Er (Isosorbide Mononitrate) 120 Mg Tab.er.24h 30 Mg PO DAILY Latanoprost 2.5 Ml Drops 1 Drop EACHEYE QHS TAKE TONIGHT DATE: YESTERDAY TIME: AT BEDTIME NEXT DOSE DUE: DATE: TONIGHT TIME: AT BEDTIME Trusopt (Dorzolamide Hcl) 10 Ml Drops 1 Drop OP BID TAKE TWICE DAILY DATE: TODAY TIME: AM NEXT DOSE DUE: DATE: TODAY TIME: PM Vitamin D3 (Cholecalciferol (Vitamin D3)) 2,000 Unit Capsule 1,000 Unit PO DAILY TAKE TWICE DAILY DATE: TODAY TIME: AM NEXT DOSE DUE: DATE: TODAY TIME: PM Potassium Chloride (Potassium Chloride) 10 Meq Tab.er.prt 30 Meq PO BID TAKE TWICE DAILY DATE: TODAY TIME: AM NEXT DOSE DUE: DATE: TODAY TIME: PM Protonix (Pantoprazole Sodium) 40 Mg Tablet.dr 40 Mg PO BID66 TAKE TOMORROW DATE: TODAY TIME: BEFORE BREAKFAST NEXT DOSE DUE: DATE: TOMORROW TIME: BEFORE BREAKFAST Pv Fish Oil 1,000 Mg Softgel (Charlotte-3 Fatty Acids/Vitamin E) 1,000 Mg Capsule 2,000 Mg PO DAILY TAKE TOMORR DATE: TODAY TIME: AM NEXT DOSE DUE: DATE: TOMORR TIME: AM Nitrostat (Nitroglycerin) 0.4 Mg Tab.subl 0.4 Mg SL Q5MIN X3 DOSES PRN TAKE NEEDED NEXT DOSE DUE: DATE: TODAY TIME: IF AND WHEN NEEDED Niaspan (Niacin) 1,000 Mg Tab.er.24h 1,000 Mg PO HS TAKE TONIGHT next dose TONIGHT Toprol Xl (Metoprolol Succinate) 25 Mg Tab.er.24h 25 Mg PO DAILY TAKE TONIGHT DATE: YESTER TIME: PM NEXT DOSE DUE: DATE: TIME: Alphagan P (Brimonidine Tartrate) 5 Ml Drops 5 Ml OP BID TAKE TOMORR DATE: TODAY TIME: AM NEXT DOSE DUE: DATE: TOMORR TIME: AM Aspir 81 (Aspirin) 81 Mg Tablet.dr 81 Mg PO DAILY TAKE TOMORR DATE: TODAY TIME: AM NEXT DOSE DUE: DATE: TOMORR TIME: AM Acetaminophen 500 Mg Tablet 1,000 Mg PO BID TAKE TWICE DAILY FOR PAIN DATE: TODAY TIME: AM NEXT DOSE DUE: DATE: TODAY TIME: AFTERNOON IF NEEDED ALLERGIES Allergies: Coded Allergies: latex (Verified Allergy, Severe, Rash, 04/26/20) Nhlpufj-Swo-Vvu Reductase Inhibitor (Unverified Allergy, Intermediate, muscle pain, 04/26/20) adhesive (Unverified Allergy, Intermediate, RASH, 04/26/20) bacitracin (Unverified Allergy, Intermediate, rash, 04/26/20) ezetimibe (Unverified Allergy, Intermediate, muscle pain, 04/26/20) neomycin (Unverified Allergy, Intermediate, rash, 04/26/20) polymyxin B (Unverified Allergy, Intermediate, rash, 04/26/20) propoxyphene (Unverified Adverse Reaction, Intermediate, HALLUCINATIONS, 06/08/20) ROS Review of Systems 14 point ROS conducted with pertinent positives noted above in HPI PHYSICAL EXAM General: Alert, Oriented X3, Cooperative, mild distress HEENT: Atraumatic Lungs: Other (diminished throughout, tachypneic ) Heart: Regular rate (vpacing ) Abdomen: Soft Extremities: Other (1-2+ bilateral LE edema ) Skin: No breakdown Neuro: Normal speech, Sensation intact Psych/Mental Status: Mental status NL, Mood NL MUSCULOSKELETAL: Osteoarthritic changes both hands VITALS Vital Signs Vital Signs Date Time Temp Pulse Resp B/P (MAP) Pulse Ox O2 Delivery O2 Flow Rate FiO2 06/13/20 06:00 79 20 112/41 (64) 93 Nasal Cannula 6.0 06/12/20 19:00 97.5 LABS LABS Laboratory Tests Test 06/12/20 05:33 06/13/20 05:55 Sodium Level 133 mmol/L (136-145) 132 mmol/L (136-145) Potassium Level 5.0 mmol/L (3.5-5.1) 5.2 mmol/L (3.5-5.1) Chloride Level 98 mmol/L (98-107) 98 mmol/L (98-107) Carbon Dioxide Level 25 mmol/L (21-32) 22 mmol/L (21-32) Anion Gap 10 (6-14) 12 (6-14) Blood Urea Nitrogen 68 mg/dL (7-20) 79 mg/dL (7-20) Creatinine 1.7 mg/dL (0.6-1.0) 1.8 mg/dL (0.6-1.0) Estimated GFR (Cockcroft-Gault) 28.6 26.7 Glucose Level 118 mg/dL (70-99) 127 mg/dL (70-99) Calcium Level 10.1 mg/dL (8.5-10.1) 9.8 mg/dL (8.5-10.1) BUN/Creatinine Ratio 44 (6-20) Total Bilirubin 3.0 mg/dL (0.2-1.0) Aspartate Amino Transf (AST/SGOT) 68 U/L (15-37) Alanine Aminotransferase (ALT/SGPT) 50 U/L (14-59) Alkaline Phosphatase 303 U/L (46-116) JJ-Wse-T-Type Natriuretic Peptide 8848 pg/mL (0-449) Total Protein 6.3 g/dL (6.4-8.2) Albumin 1.9 g/dL (3.4-5.0) Albumin/Globulin Ratio 0.4 (1.0-1.7) ECHOCARDIOGRAM Echocardiogram <Conclusion> The left ventricle is normal size. The left ventricular systolic function is low normal. The Ejection Fraction is 50-55%. There is mild concentric left ventricular hypertrophy. There is a device lead in the right ventricle. There is no significant aortic valvular stenosis. Doppler and Color Flow revealed no significant aortic regurgitation. Doppler and Color-flow revealed trace mitral regurgitation. Doppler and Color Flow revealed mild to moderate tricuspid regurgitation. DATE: 03/22/18 1305 04/25/2020 Echocardiogram Normal left ventricular size. Mild concentric hypertrophy. Normal systolic function. Estimated EF ~60%. No definite regional wall motion abnormalities. Unable to accurately assess diastolic function. Normal right ventricular size. Systolic function appears to be low normal. The left atrium is severely dilated. Normal right atrial size. Device leads in right-sided chambers. Aortic valve sclerosis without stenosis. No regurgitation. Mild to moderate mitral valve regurgitation. Two jets. There is systolic blunting of the pulmonary veins. Severe tricuspid regurgitation. Assessment complicated by shadowing from device lead. No pericardial effusion. Estimated pulmonary artery systolic pressure 41 mmHg. Comparison is made with a prior transthoracic echocardiogram performed 03/08/2019. There is been interval improvement in left ventricular systolic function. Previously estimated EF ~35%. Tricuspid valve regurgitation is not as pronounced by color-flow Doppler on current study but probably remains severe. STRESS TEST Stress Test NM PET/CT MYOCARDIAL IMAGING PERFUSION STRESS AND REST Date 04/18/2020 9:40 AM IMPRESSION Normal pharmacologic stress myocardial perfusion, flow quantification, and function. Cardiomegaly and coronary artery calcification status post CABG. ASSESSMENT/PLAN Assessment/Plan 1. Acute respiratory failure with a/c CHF, ? ILD. Continue with high O2 requirements 2. Acute on chronic diastolic diastolic CHF; s/p IV diuresis 3. H/o ICM; LVEF previously 35%. most recent echo with LV recovery with an EF of 60% 4. CAD s/p CABG; follows with [facility]. MPI 04/28 with normal perfusion as noted above 5. PAFIB/flutter; s/p ablation 04/28. On amiodarone. Eliquis for stroke prophylaxis 6. SSS s/p MANAGER AUTO-P; Device check on events with new atrial high rate episodes all on that Wednesday, underlying rhythm atrial fibrillation with complete heart block, heart failure diagnostics stable. 7. Severe tricuspid regurgitation 8. Hypertension; controlled 9. Hyperlipidemia 10. EVAN on CKD, hyperkalemia; creatinine on 06/03/20 was 1.96 with baseline reported at 1.31.6 per review of [facility] records 11. Leukocytosis, UTI 12. Protein calorie malnutrition 13. Hypothyroidism; on replacement Recommendations Will hold off on further diuresis for now with increasing Cr Chest CT w/o contrast due to renal disease Will hold Amiodarone for now Continue metoprolol Eliquis for stroke prophylaxis Consider addition of steroids and pulmonary evaluation Supportive care GABINO WOODSON APRN June 13, 2020 08:36
[2020-06-13] MEDS: OMEGA-3 FATTY ACIDS/FISH OIL 1,000 MG CAPSULE. PO SCH (08:54)
[2020-06-13] MEDS: ASPIRIN ENTERIC COATED 81 MG TABLET.DR. PO SCH (08:54)
[2020-06-13] MEDS: ACETAMINOPHEN 500 MG TABLET PO SCH (08:55)
[2020-06-13] MEDS: THIAMINE 100 MG TABLET. PO SCH (08:55)
[2020-06-13] MEDS: POTASSIUM CHLORIDE 20 MEQ TABLET.ER. PO SCH (08:56)
[2020-06-13] MEDS: LACTOBACILLUS RHAMNOSUS GG 1 CAPSULE. PO SCH (08:56)
[2020-06-13] MEDS: CALCIUM CARBONATE 500 MG TABLET PO SCH (08:56)
[2020-06-13] MEDS: APIXABAN 2.5 MG TABLET PO SCH (08:56)
[2020-06-13] MEDS: MAGNESIUM OXIDE 400 MG TABLET PO SCH (08:56)
[2020-06-13] MEDS: hydrALAZINE 25 MG TABLET PO SCH ×3 (08:57→14:00)
[2020-06-13] MEDS: AMIODARONE HCL 200 MG TABLET. PO SCH (09:00)
[2020-06-13] MEDS: ISOSORBIDE MONONITRATE ER 30 MG TAB.ER.24H PO SCH (09:00)
[2020-06-13] MEDS ORDERED: BUMETANIDE 1 MG/4 ML VIAL. IVP SCH (09:00)
[2020-06-13] MEDS ORDERED: FUROSEMIDE 100 MG/10 ML VIAL IVP SCH (09:00)
[2020-06-13] MEDS: METOPROLOL SUCC 24HR ER 25 MG TAB.ER.24H. PO SCH (09:11)
[2020-06-13] MEDS: LINEZOLID 600 MG TABLET PO SCH (09:14)
[2020-06-13] MEDS: BRIMONIDINE 0.2% OPHTH SOLUTION 5ML BOTTLE. OU SCH (09:14)
[2020-06-13] MEDS: PYRIDOXINE 50 MG TABLET. PO SCH (09:14)
[2020-06-13] MEDS: DORZOLAMIDE 2% OPHTH SOLUTION 10ML BOTTLE. OU SCH (09:14)
--- NOTE | 2020-06-13 10:12 | RAD ---
CT of the chest without contrast 06/13/2020 INDICATION: Shortness of breath COMPARISON STUDY: Chest radiograph, June 11, 2020. TECHNIQUE: Multidetector CT imaging of the chest was performed without contrast. FINDINGS: Heart is mildly enlarged. There is a multilead pacemaking/ICD device from a left subclavian approach. No significant pericardial effusion is identified. Mild pretracheal adenopathy and calcifi ed right hilar adenopathy is present. The appearance is nonspecific. There is no pneumothorax. There is relatively diffuse groundglass infiltrates throughout the lungs wi th some apical sparing. Areas of more dense consolidation are also present. Trace left pleural effusi on is noted. The degree of intralobular septal thickening appears to be relatively mild. Elevation of the upper abdomen demonstrates no acute abnormality. No acute osseous changes are identified. IMPRESSION: Relatively diffuse prominently ground glass infiltrates with areas of slightly more dense consolidation. Differential considerations include pulmonary edema, atypical or viral infectious pro cess, or less likely hemorrhage. Recommend radiographic follow-up to resolution. CT DOSING PQRS STATEMENT: One or more of the following individualized dose reduction techniques were utilized for this examinat ion: 1. Automated exposure control 2. Adjustment of the mA and/or kV according to patient size 3. Use of iterative reconstruction technique Electronically signed by: Lionel Childs MD (06/13/2020 10:10 AM) [id number]
[2020-06-13] MEDS ORDERED: methylPREDNISolone SOD SUCC PF 125 MG/2 ML VIAL. IV ONE (10:30)
[2020-06-13 11:33] LABS: BGAS PH 7.4 (7.35-7.45)
[2020-06-13] MEDS ORDERED: methylPREDNISolone SOD SUCC PF 40 MG/ML VIAL. IV SCH (22:00)
== END 2020-06-13 18:40 | disposition short-term general hospital (02) | DRG 291 ==
LOC: ER 22:38 → ICU 06-09 03:03
PROVIDERS: ADMIT Hospitalist; ATTEND Hospitalist
DX: I13.0 Hypertensive heart and chronic kidney disease with heart failure and stage 1 through stage 4 chronic kidney disease, or unspecified chronic kidney disease (principal); E43 Unspecified severe protein-calorie malnutrition; I50.43 Acute on chronic combined systolic (congestive) and diastolic (congestive) heart failure; J96.01 Acute respiratory failure with hypoxia; N18.4 Chronic kidney disease, stage 4 (severe); N39.0 Urinary tract infection, site not specified; J84.9 Interstitial pulmonary disease, unspecified; E03.9 Hypothyroidism, unspecified; E11.22 Type 2 diabetes mellitus with diabetic chronic kidney disease; E11.65 Type 2 diabetes mellitus with hyperglycemia; E78.00 Pure hypercholesterolemia, unspecified; E78.5 Hyperlipidemia, unspecified; I07.1 Rheumatic tricuspid insufficiency; I25.10 Atherosclerotic heart disease of native coronary artery without angina pectoris; I25.5 Ischemic cardiomyopathy; I48.0 Paroxysmal atrial fibrillation; E87.5 Hyperkalemia; I49.5 Sick sinus syndrome; Z79.01 Long term (current) use of anticoagulants; Z80.0 Family history of malignant neoplasm of digestive organs; Z82.49 Family history of ischemic heart disease and other diseases of the circulatory system; Z85.42 Personal history of malignant neoplasm of other parts of uterus; Z86.711 Personal history of pulmonary embolism; Z86.718 Personal history of other venous thrombosis and embolism; Z90.49 Acquired absence of other specified parts of digestive tract; Z90.710 Acquired absence of both cervix and uterus; Z95.1 Presence of aortocoronary bypass graft; Z96.651 Presence of right artificial knee joint; G89.29 Other chronic pain; M19.90 Unspecified osteoarthritis, unspecified site; Z20.822 Contact with and (suspected) exposure to COVID-19; Z88.8 Allergy status to other drugs, medicaments and biological substances; Z91.040 Latex allergy status; Z79.899 Other long term (current) drug therapy; B96.1 Klebsiella pneumoniae [K. pneumoniae] as the cause of diseases classified elsewhere; K21.9 Gastro-esophageal reflux disease without esophagitis
CPT/HCPCS: 36415; 36600; 71045; 71250; 80048; 80053; 80061; 80076; 80307; 81001; 82550; 82803; 83690; 83735; 83880; 84443; 84484; 85007; 85025; 85027; 85379; 85610; 85730; 87077; 87086; 87186; 93005; 93970; 94640; 96361; 96365; 96375; J0696; J1940; J2270; J2543; J2930; J7120; U0003; U0005; 99285-25